=== PATIENT | female | born 1940 | race Caucasian/White ===

== ENCOUNTER → 2017-03-31 | Outpatient (REF) | payer MEDICARE | LOC: M LAB REF 16:28 | PROVIDERS: ATTEND Nurse Practitioner Family | DX: E83.52 Hypercalcemia (principal) ==

== ENCOUNTER → 2017-05-01 | Outpatient (REF) | payer MEDICARE ==
[2017-05-06 13:29] LABS: ALBUMIN 3.99 GM/DL (3.29-5.55)
== END ==
LOC: M LAB REF 16:51
PROVIDERS: ATTEND Nurse Practitioner Family
DX: E83.52 Hypercalcemia (principal)

== ENCOUNTER → 2019-04-05 | Outpatient (REF) | payer MEDICARE | LOC: M LAB REF 12:01 | PROVIDERS: ATTEND Nurse Practitioner Family | DX: E83.52 Hypercalcemia (principal) ==

== ENCOUNTER 2020-08-15 13:34 | Emergency (ER) | payer MEDICARE ==
[~2020-08-15] VITALS: Ht 157.5 cm; Wt 36.5 kg
[2020-08-15 14:58] LABS: BASO % 0.2 % (0.0-1.0); EOS # 0.1 10^3/uL (0.0-0.5); EOS % 0.7 % (0.0-3.0); HEMATOCRIT 39.1 % (36.0-47.0); HEMOGLOBIN 12.3 g/dl (12.0-15.5); LYMPH % 9.9 % (24.0-44.0); MEAN CORPUSCULAR HEMOGLOBIN 29.4 pg (27.0-33.0); MEAN CORPUSCULAR HGB CONC 31.5 g/dl (32.0-36.5); MEAN CORPUSCULAR VOLUME 93.5 fl (80.0-96.0); MONO # 0.5 10^3/uL (0.0-0.8); MONO % 4.7 % (0.0-5.0); NEUTROPHILS # 8.3 10^3/uL (1.5-8.5); NEUTROPHILS % 84.2 % (36.0-66.0); PLATELET COUNT, AUTOMATED 301 10^3/uL (150-450); RED BLOOD COUNT 4.18 10^6/uL (4.00-5.40); WHITE BLOOD COUNT 9.9 10^3/uL (4.0-10.0)
[2020-08-15] MEDS ORDERED: LISI2.5T2 PO (15:33)
[2020-08-15] MEDS ORDERED: IRON27TA2 PO (15:33)
[2020-08-15] MEDS ORDERED: ASPI81TA86 PO (15:33)
[2020-08-15] MEDS ORDERED: FENO1CAP16 PO (15:33)
[2020-08-15] MEDS ORDERED: CENT1TAB PO (15:33)
[2020-08-15] MEDS ORDERED: VITAD400CA FT (15:33)
[2020-08-15] MEDS ORDERED: TRAM50TA2 PO (15:33)
[2020-08-15] MEDS ORDERED: TOLT60TA PO (15:33)
--- NOTE | 2020-08-15 16:21 | REPVR ---
PROCEDURE INFORMATION: Exam: CT Abdomen And Pelvis Without Contrast Exam date and time: 08/15/2020 3:17 PM Age: 79 years old Clinical indication: Abdominal pain; Generalized; Additional info: Acute urinary retention TECHNIQUE: Imaging protocol: Computed tomography of the abdomen and pelvis without contrast. Radiation optimization: All CT scans at this facility use at least one of these dose optimization techniques: automated exposure control; mA and/or kV adjustment per patient size (includes targeted exams where dose is matched to clinical indication); or iterative reconstruction. COMPARISON: No relevant prior studies available. FINDINGS: Lungs: There are severe emphysematous changes at the lung apices. Linear atelectasis or parenchymal scarring is seen at the lung bases. Liver: There are no focal liver lesions present. Gallbladder and bile ducts: Cholelithiasis is noted. Pancreas: The pancreas is normal. Spleen: The spleen is normal. Adrenals: The adrenal glands are normal. Kidneys and ureters: There is no evidence of hydronephrosis. Likely 7 mm partially exophytic hemorrhagic cyst at the right superior renal pole. Stomach and bowel: The stomach is normal. Retained fecal material is noted in the colon. There is no evidence of intestinal perforation or obstruction. Appendix: No evidence of appendicitis. Intraperitoneal space: There is no free intraperitoneal air visualized. Vasculature: Atherosclerotic vascular disease is noted. There is no evidence of an abdominal aortic aneurysm. Lymph nodes: Unremarkable. No enlarged lymph nodes. Bladder: A Antony catheter is in the bladder. Bladder air likely iatrogenic. Bladder calculi layer in the dependent portion the bladder. No bladder wall thickening is seen. Reproductive: Unremarkable as visualized. Bones/joints: The bones are osteopenic. There are compression deformities at T12 through L5, which is age indeterminate. Spinal degenerative changes are noted. IMPRESSION: 1. Bladder calculi noted. No bladder wall thickening. 2. No renal calculi or obstruction. 3. Cholelithiasis. 4. Compression deformities at T12 through L5, age indeterminate. COMMENTS: Consistent with the [place] [employer]'s Incidental Findings Committee white paper (J Am Dwight Radiol 2018): Any incidental renal lesion less than 1.0 cm or classified as too small to characterize, or any incidental cystic renal lesion characterized as simple-appearing, is likely benign. No follow-up imaging is recommended for these lesions per consensus recommendations based on imaging criteria. Electronically signed by: Alethea Jon On 08/15/2020 16:20:55 PM
[2020-08-15 17:19] VITALS: BP 128/71
== END 2020-08-15 17:38 | disposition home or self-care (01) ==
LOC: M ED 13:34
DX: R33.9 Retention of urine, unspecified (principal); T44 Poisoning by, adverse effect of and underdosing of drugs primarily affecting the autonomic nervous system; Y92.9 Unspecified place or not applicable; Y93.9 Activity, unspecified; K80.20 Calculus of gallbladder without cholecystitis without obstruction; N21.0 Calculus in bladder; M51.35 Other intervertebral disc degeneration, thoracolumbar region; M51.36 Other intervertebral disc degeneration, lumbar region; J44.9 Chronic obstructive pulmonary disease, unspecified; Z79.82 Long term (current) use of aspirin; Z79.899 Other long term (current) drug therapy

== ENCOUNTER 2020-10-29 13:15 | Emergency (ER) | payer MEDICARE ==
[~2020-10-29] VITALS: Ht 152.4 cm; Wt 35.5 kg
[~2020-10-29 13:15] MED LIST: ASPI81TA86 PO; CENT1TAB PO; FENO1CAP16 PO; IRON27TA2 PO; LISI2.5T2 PO; TOLT60TA PO; TRAM50TA2 PO; VITAD400CA FT
[2020-10-29] MEDS ORDERED: ADV500INH INH (13:54)
[2020-10-29] MEDS ORDERED: TAMS1CAP17 (13:54)
[2020-10-29] MEDS ORDERED: SPIR1CAP (13:54)
[2020-10-29] MEDS ORDERED: LISI-542 (13:54)
[2020-10-29] MEDS ORDERED: COMBAER6 (13:54)
[2020-10-29] MEDS ORDERED: OXYB5TAB10 (13:54)
[2020-10-29] MEDS ORDERED: ALEN70TA74 (13:54)
[2020-10-29] MEDS ORDERED: CALC500C16 PO (13:54)
[2020-10-29 15:18] LABS: BASO % 0.6 % (0.0-1.0); EOS # 0.2 10^3/uL (0.0-0.5); EOS % 3.6 % (0.0-3.0); HEMOGLOBIN 11.2 g/dl (12.0-15.5); LYMPH # 1.2 10^3/uL (1.5-5.0); LYMPH % 18.3 % (24.0-44.0); MEAN CORPUSCULAR HEMOGLOBIN 29.1 pg (27.0-33.0); MEAN CORPUSCULAR HGB CONC 31.1 g/dl (32.0-36.5); MEAN CORPUSCULAR VOLUME 93.5 fl (80.0-96.0); MONO # 0.4 10^3/uL (0.0-0.8); MONO % 5.9 % (0.0-5.0); NEUTROPHILS # 4.7 10^3/uL (1.5-8.5); NEUTROPHILS % 71.3 % (36.0-66.0); PLATELET COUNT, AUTOMATED 278 10^3/uL (150-450); RED BLOOD COUNT 3.85 10^6/uL (4.00-5.40); WHITE BLOOD COUNT 6.6 10^3/uL (4.0-10.0)
[2020-10-29 15:47] LABS: BLOOD UREA NITROGEN 17 MG/DL (7-18); CALCIUM LEVEL 9.1 MG/DL (8.8-10.2); CARBON DIOXIDE LEVEL 32 MEQ/L (21-32); CHLORIDE LEVEL 99 MEQ/L (98-107); CREATININE FOR GFR 0.52 MG/DL (0.55-1.30); GLOMERULAR FILTRATION RATE > 60.0 (>39); GLUCOSE, FASTING 96 MG/DL (70-100); POTASSIUM SERUM 4.3 MEQ/L (3.5-5.1); SODIUM LEVEL 136 MEQ/L (136-145)
[2020-10-29] MEDS ORDERED: KEFL500C17 PO (16:25)
[2020-10-29 16:43] VITALS: BP 121/53
== END 2020-10-29 17:07 | disposition home or self-care (01) ==
LOC: M ED 13:15
DX: T83.091A Other mechanical complication of indwelling urethral catheter, initial encounter (principal); N39.0 Urinary tract infection, site not specified; R31.29 Other microscopic hematuria; Z79.899 Other long term (current) drug therapy

== ENCOUNTER → 2020-11-14 | Outpatient (REF) | payer MEDICARE ==
[~2020-11-14] MED LIST changes: +ADV500INH INH; +ALEN70TA74; +CALC500C16 PO; +COMBAER6; +KEFL500C17 PO; +LISI-542; +OXYB5TAB10; +SPIR1CAP; +TAMS1CAP17
== END ==
LOC: M LAB REF 17:15
PROVIDERS: ATTEND Dermatology
DX: L57.0 Actinic keratosis (principal); L57.8 Other skin changes due to chronic exposure to nonionizing radiation

== ENCOUNTER → 2021-01-15 | Outpatient (REF) | payer MEDICARE ==
[~2021-01-15] MED LIST changes: -ALEN70TA74; +ALEN70TA82; -LISI-542; +LISI-898
[2021-01-20 15:08] LABS: CA Oxalate Dihy 40 % (.); Ca Ox Monohydrate 40 % (.)
== END ==
LOC: M SMT 17:25
PROVIDERS: ATTEND Urology
DX: N21.0 Calculus in bladder (principal)

== ENCOUNTER 2021-01-21 11:23 | Emergency (ER) | payer MEDICARE ==
[~2021-01-21] VITALS: Ht 152.4 cm; Wt 34.1 kg
[2021-01-21 11:29] VITALS: BP 133/71
--- OUTSIDE RECORDS SUMMARY | 2021-01-21 11:29 | CCD ---
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 892899163 Problem Urinary retention R33.9 Active confirmed 13 4021012 Problem Bladder spasm N32.89 Active confirmed 541068 006 ALLERGIES No Known Allergies ENCOUNTERS from 1940 to 2021-01-05 Encounter Location Date Provider Diagnosis [facility] [address] [place] [address] Jan Romina Shah Urinary retention R33.9 IMMUNIZATIONS Vaccine Route Administration Date Status Influenza (18 yrs & older) Flublok Unknown Oct 02, 2020 Administered SOCIAL HISTORY Tobacco Use: Social History Observation Description Date Details (start date - stop date) Former Smoker Sex Assigned At : Social History Observation Description Sex Assigned At Unknown Language: Question Answer Notes Languages spoken: Azeri Orthodox: Question Answer Notes Orthodox No pentecostalism beliefs that would impact health care., Tobacco Use: Question Answer Notes Are you a: former smoker REASON FOR REFERRAL No Information VITAL SIGNS Weight 77 lbs Jan, Height 61 in Jan, BMI 14.55 kg/m2 Jan, Heart Rate 110 /min Jan, Respiratory Rate 24 /min Jan, Temperature 98 degrees Fahrenheit Jan, Oximetry 88% on o2 2lpm Jan, Blood pressure systolic 148 mm Hg Jan, Blood pressure diastolic 55 mm Hg Jan, MEDICATIONS Medication SIG (Take, Route, Frequency, Duration) Notes Start Da te End Date Status Fenofibrate 48 MG as directed Orally Once a day for 30 day(s) Active Ciprofloxacin HCl 500 MG 1 tablet Orally every 12 hrs for 10 day (s) Oct, Active Oxybutynin Chloride 5 MG 1 tablet Orally Twice a day for 90 day(s) Active Calcium + D 600-200 MG-UNIT 1 tablet with food Orally Once a day for 30 day(s) Active Combivent Respimat 20-100 mcg/act 1 puff Inhalation Four times daily Active Ciprofloxacin HCl 500 MG 1 tablet Orally every 12 hrs for 21 day (s) Dec, Active Tamsulosin HCl 0.4 MG TAKE 1 CAPSULE BY MOUTH EVER Y DAY 30 MINUTES AFTER DINNER for 90 Active Solifenacin Succinate 5 MG 1 tablet Orally Once a day for 90 Active Spiriva HandiHaler 18 MCG 1 capsule Inhalation Once a day Active Vitamin D 1000 UNIT 1 capsule Orally Once a day for 30 day(s) Active PROCEDURES from 1942 to 2021-01-05 Procedure Date Ordered Result Body Site Medication: Lidocaine HCl 2% Jelly 5mL Intravesically 2021-01-04 N/A Shabazz Catheter Insertion 16F 2021-01-04 N/A RESULTS No Results REASON FOR VISIT cath fell out MEDICAL (GENERAL) HISTORY Type Description Date Medical History HYPERTENSION Medical History COPD Medical History HIGH TRIGLYCERIDES Surgical History SURGERY TO REMOVE CYST, OVARY AND APPEND IX AT AGE 5YRS Surgical History surgery to remove cancer from left leg 1 01/2020 Hospitalization History surgery left leg for cancer removal 10/2020 Goals Section No Information Health Concerns No Information MEDICAL EQUIPMENT No Information MENTAL STATUS No Information FUNCTIONAL STATUS No Information ASSESSMENTS Encounter Date Diagnosis Assessment Notes Treatment Notes Treatm ent Clinical Notes Jan, Urinary retention (ICD-10 - R33.9) Jan, Other Care for your shabazz catheter : female material was printed PLAN OF TREATMENT Next Appt Details 4 Weeks Reason:cath chg Provider Name:Luis Manuel Morales, 2021-02-08 01:30:00 PM, [address], [place], [address], [facility] Insurance Providers Payer Name Payer Address Payer Phone Insured Name Patient Relati onship to Insured Coverage Start Date Coverage End Date [employer] OPTIONS [facility] [address] [facility] [address] SHAHZAD GEE MEDICARE Part A and B [address] [facility] [address] [phone] SHAHZAD GEE self
--- OUTSIDE RECORDS SUMMARY | 2021-01-21 11:29 | CCD ---
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 601172753 Problem Urinary retention R33.9 Active confirmed 13 0800427 Problem Bladder spasm N32.89 Active confirmed 322448 006 ALLERGIES No Known Allergies ENCOUNTERS from 1940 to 2021-01-10 Encounter Location Date Provider Diagnosis [facility] Urology [address] [place] [address] Jan Toni Nuñez Urinary retention R33.9 IMMUNIZATIONS Vaccine Route Administration Date Status Influenza (18 yrs & older) Flublok Unknown Oct 02, 2020 Administered SOCIAL HISTORY Tobacco Use: Social History Observation Description Date Details (start date - stop date) Former Smoker Sex Assigned At : Social History Observation Description Sex Assigned At Unknown Language: Question Answer Notes Languages spoken: Swedish Yazdanism: Question Answer Notes Yazdanism No mandaeism beliefs that would impact health care., Tobacco Use: Question Answer Notes Are you a: former smoker REASON FOR REFERRAL No Information VITAL SIGNS Weight 77 lbs Jan, Height 61 in Jan, BMI 14.55 kg/m2 Jan, Heart Rate 105 /min Jan, Respiratory Rate 22 /min Jan, Temperature 97.8 degrees Fahrenheit Jan, Oximetry 92% on 2L Jan, Blood pressure systolic 132 mm Hg Jan, Blood pressure diastolic 78 mm Hg Jan, MEDICATIONS Medication SIG (Take, Route, Frequency, Duration) Notes Start Da te End Date Status Fenofibrate 48 MG as directed Orally Once a day for 30 day(s) Active Calcium + D 600-200 MG-UNIT 1 tablet with food Orally Once a day for 30 day(s) Active Spiriva HandiHaler 18 MCG 1 capsule Inhalation Once a day Active Vitamin D 1000 UNIT 1 capsule Orally Once a day for 30 day(s) Active Oxybutynin Chloride 5 MG 1 tablet Orally Twice a day for 90 day(s) Active Ciprofloxacin HCl 500 MG 1 tablet Orally every 12 hrs for 10 day (s) Oct, Active Cephalexin 500 MG 1 capsule 1 hour prior to yo ur cystoscopy Orally Once for 1 days Jan, Active Tamsulosin HCl 0.4 MG TAKE 1 CAPSULE BY MOUTH EVER Y DAY 30 MINUTES AFTER DINNER for 90 Active Combivent Respimat 20-100 mcg/act 1 puff Inhalation Four times daily Active Solifenacin Succinate 5 MG 1 tablet Orally Once a day for 90 Active Ciprofloxacin HCl 500 MG 1 tablet Orally every 12 hrs for 21 day (s) Dec, Active PROCEDURES from 1942 to 2021-01-10 Procedure Date Ordered Result Body Site Medication: Lidocaine HCl 2% Jelly 5mL Intravesically 2021-01-09 N/A Antony Catheter Insertion 16F 2021-01-09 N/A RESULTS No Results REASON FOR VISIT CATH CHANGE MEDICAL (GENERAL) HISTORY Type Description Date Medical [...] Notes Jan, Urinary retention (ICD-10 - R33.9) Catheter replaced. This is multiple catheters that have punctured, previous cystoscopy did not show any bladder stones, but I recommended doing another cystoscopy to see if there want anything inside the bladder causing the balloon to leak repeatedly. Pt is agreeable, procedure and consent reviewed and signed, abx sent to psychiatric. PLAN OF TREATMENT Medication Medication Name Sig Start Date Stop Date Cephalexin 500 MG 1 capsule 1 hour prior to yo ur cystoscopy Orally Once for 1 days Jan, Treatment Notes Assessment Notes Clinical Notes Urinary retention Catheter replaced.Th is is multiple catheters that have punctured, previous cystoscopy did not show any bladder stones, but I recommended doing another cystoscopy to see if there want anything inside the bladder causing the balloon to leak repeatedly.Pt is agreeable, procedure and consent reviewed and signed, abx sent to psychiatric. Next Appt Details Provider Name:Toni Nuñez, 10:30:00 AM, [address], [place], [address], Provider Name:Luis Manuel Morales, 2021-02-08 02:00:00 PM, [address], [place], [address], Insurance Providers Payer Name Payer Address Payer Phone Insured Name Patient Relati onship to Insured Coverage Start Date Coverage End Date [employer] OPTIONS [facility] CLAIM DIV [address] [facility] [address] SHAHZAD GEE MEDICARE Part A and B [address] [facility] [address] [phone] SHAHZAD GEE
--- OUTSIDE RECORDS SUMMARY | 2021-01-21 11:29 | CCD ---
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 903950662 Problem Urinary retention R33.9 Active confirmed 13 0282789 Problem Bladder spasm N32.89 Active confirmed 585129 006 ALLERGIES No Known Allergies ENCOUNTERS from 1940 to 2021-01-05 Encounter Location Date Provider Diagnosis [facility] Urology [address] [place] [address] Jan Luis Manuel Morales Urinary retention R33.9 IMMUNIZATIONS Vaccine Route Administration Date Status Influenza (18 yrs & older) Flublok Unknown Oct 02, 2020 Administered SOCIAL HISTORY Tobacco Use: Social History Observation Description Date Details (start date - stop date) Former Smoker Sex Assigned At : Social History Observation Description Sex Assigned At Unknown Language: Question Answer Notes Languages spoken: Malay Anabaptist: Question Answer Notes Anabaptist No jew beliefs that would impact health care., Tobacco Use: Question Answer Notes Are you a: former smoker REASON FOR REFERRAL No Information VITAL SIGNS Weight 79 lbs Jan, Height 61 in Jan, BMI 14.93 kg/m2 Jan, Heart Rate 116 /min Jan, Respiratory Rate 22 /min Jan, Oximetry 92% on 2L Jan, Blood pressure systolic 128 mm Hg Jan, Blood pressure diastolic 79 mm Hg Jan, MEDICATIONS Medication SIG (Take, [...] 2021-01-05 Procedure Date Ordered Result Body Site Antony Catheter Insertion 16F 2021-01-03 N/A Medication: Lidocaine HCl 2% Jelly 5mL Intravesically 2021-01-03 N/A RESULTS No Results REASON FOR VISIT catheter placement MEDICAL (GENERAL) HISTORY Type Description Date Medical [...] Notes Jan, Urinary retention (ICD-10 - R33.9) PLAN OF TREATMENT Next Appt Details Provider Name:Luis Manuel Morales, 2021-02-08 01:30:00 PM, [address], [place], [address], Insurance Providers Payer Name Payer Address Payer Phone Insured Name Patient Relati onship to Insured Coverage Start Date Coverage End Date [facility] CLAIM DIV [address] [facility] [phone] PECORI,SHAHZAD L self MEDICARE Part A and B [address] [facility] [address] [phone] SHAHZAD GEE
--- OUTSIDE RECORDS SUMMARY | 2021-01-21 11:29 | CCD ---
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 Active 595353691 ALLERGIES No Known Allergies ENCOUNTERS from 1942 to 2020-12-20 Encounter Location Date Provider Diagnosis [facility] Urology [address] [place] [address] Dec Luis Manuel Morales Urinary retention R33.9 and Immunization not carried out because of patient refusal Z28.21 IMMUNIZATIONS Vaccine Route Administration Date Status Influenza (18 yrs & older) Flublok Unknown Oct 02, 2020 Administered SOCIAL HISTORY Tobacco Use: Social History Observation Description Date Details (start date - stop date) Former Smoker Sex Assigned At : Social History Observation Description Sex Assigned At Unknown Islam: Question Answer Notes Islam No denominational beliefs that would impact health care., Tobacco Use: Question Answer Notes Are you a: former smoker REASON FOR REFERRAL No Information VITAL SIGNS Weight 79 lbs Dec, Height 61 in Dec, BMI 14.93 kg/m2 Dec, Heart Rate 69 /min Dec, Respiratory Rate 24 /min Dec, Temperature 98.7 degrees Fahrenheit Dec, Oximetry 94% on 2 lpm Dec, Blood pressure systolic 117 mm Hg Dec, Blood pressure diastolic 70 mm Hg Dec, MEDICATIONS Medication SIG (Take, Route, Frequency, Duration) Notes Start Da te End Date Status Spiriva HandiHaler 18 MCG 1 capsule Inhalation Once a day Active Solifenacin Succinate 5 MG 1 tablet Orally Once a day for 90 Active Ciprofloxacin HCl 500 MG 1 tablet Orally every 12 hrs for 10 day (s) Oct, Active Calcium + D 600-200 MG-UNIT 1 [...] 1 puff Inhalation Four times daily Active Vitamin D 1000 UNIT 1 capsule Orally Once a day for 30 day(s) Active Oxybutynin Chloride 5 MG 1 tablet Orally Twice a day for 90 day(s) Active Fenofibrate 48 MG as directed Orally Once a day for 30 day(s) Active PROCEDURES from 1942 to 2020-12-20 Procedure Date Ordered Result Body Site Shabazz Catheter Insertion 16F 2020-12-19 N/A RESULTS No Results REASON FOR VISIT cath change- last ov 08/22/20 MEDICAL (GENERAL) HISTORY Type Description Date Medical [...] Notes Treatment Notes Treatm ent Clinical Notes Dec, Urinary retention (ICD-10 - R33.9) How to care for your shabazz catheter information given to pt. Rowe not working. Dec, Immunization not carried out because of patient refusal (ICD-10 - Z28.21) PLAN OF TREATMENT Treatment Notes Assessment Notes Clinical Notes Urinary retention How to care for your shabazz c atheter information given to pt. Rowe not working. Treatment Notes Test Name Order Date Medication: Lidocaine HCl 2% Jelly 5mL Intravesically 2020-12-20 Next Appt Details 4 Weeks Reason:cath chg Provider Name:Luis Manuel Morales, 2021-01-19 01:00:00 PM, [address] [place], [address], Follow [facility] Insurance Providers Payer Name Payer Address Payer Phone Insured Name Patient Relati onship to Insured Coverage Start Date Coverage End Date [employer] HE[employer] CARE OPTIONS [facility] CLAIM DIV [address] [facility] [phone] SHAHZAD GEE MEDICARE Part A and B [address] [facility] [address] [phone] SHAHZAD GEE self
--- OUTSIDE RECORDS SUMMARY | 2021-01-21 11:29 | CCD ---
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 576537228 ALLERGIES No Known Allergies ENCOUNTERS from 1942 to 2021-01-18 Encounter Location Date Provider Diagnosis [facility] Urology [address] [place] [address] [facility] [address] Jan Toni Nuñez Urinary retention R33.9 and Bladder ston e N21.0 IMMUNIZATIONS Vaccine Route Administration Date Status Imm: Influenza 18 yrs & older Flublok Unknown Oct 02 Administered SOCIAL HISTORY Tobacco Use: Social History Observation Description Date Details (start date - stop date) Former Smoker Sex Assigned At : Social History Observation Description Sex Assigned At Unknown Language: Question Answer Notes Languages spoken: Wallisian Congregation: Question Answer Notes Congregation No mosque beliefs that would impact health care., Tobacco Use: Question Answer Notes Are you a: former smoker REASON FOR REFERRAL No Information VITAL SIGNS Weight 80 lbs Jan, Height 61 in Jan, BMI 15.11 kg/m2 Jan, Heart Rate 100 /min Jan, Respiratory Rate 18 /min Jan, Oximetry 88 Jan, Blood pressure systolic 160 mm Hg Jan, Blood pressure diastolic 82 mm Hg Jan, MEDICATIONS Medication SIG (Take, Route, Frequency, Duration) Notes Start Da te End Date Status Cephalexin 500 MG 1 capsule 1 hour prior to yo ur cystoscopy Orally Once for 1 days Jan, Active Solifenacin Succinate 5 MG 1 tablet Orally Once a day for 30 day(s) Active Combivent Respimat 20-100 mcg/act 1 puff Inhalation Four times daily Active Spiriva HandiHaler 18 MCG 1 capsule Inhalation Once a day Active Fenofibrate 48 MG as directed Orally Once a day for 30 day(s) Active Oxybutynin Chloride 5 MG 1 tablet Orally Twice a day for 90 day(s) Not-Taking Ciprofloxacin HCl 500 MG 1 tablet Orally every 12 hrs for 21 day (s) Dec, Active Vitamin D 1000 UNIT 1 capsule Orally Once a day for 30 day(s) Active Solifenacin Succinate 5 MG 1 tablet Orally Once a day for 90 Active Lisinopril 5 MG 1 tablet Orally Once a day for 30 day(s) Active Ciprofloxacin HCl 500 MG 1 tablet Orally every 12 hrs for 10 day (s) Oct, Active Tamsulosin HCl 0.4 MG TAKE 1 CAPSULE BY MOUTH EVER Y DAY 30 MINUTES AFTER DINNER for 90 Active Calcium + D 600-200 MG-UNIT 1 tablet with food Orally Once a day for 30 day(s) Active PROCEDURES from 1942 to 2021-01-18 Procedure Date Ordered Result Body Site Medication: Lidocaine HCl 2% Jelly 5mL Intravesically 2021-01-15 N/A RESULTS No Results REASON FOR VISIT catheter keeps coming out MEDICAL (GENERAL) HISTORY Type Description Date Medical History HYPERTENSION Medical History COPD Medical History HIGH TRIGLYCERIDES Surgical History SURGERY TO REMOVE CYST, OVARY AND APPEND IX AT AGE 5YRS Surgical History surgery to remove cancer from left leg 1 01/2020 Surgical History cystoscopy 01/2021 Hospitalization History surgery left leg for cancer removal 10/2020 Goals Section No Information Health Concerns No Information MEDICAL EQUIPMENT No Information MENTAL STATUS No Information FUNCTIONAL STATUS No Information ASSESSMENTS Encounter Date Diagnosis Assessment Notes Treatment Notes Treatm ent Clinical Notes Jan, Urinary retention (ICD-10 - R33.9) Jan, Bladder stone (ICD-10 - N21.0) PLAN OF TREATMENT Treatment Notes Test Name Order Date Calculus Analysis, Stone Jelly 2021-01-15 Next Appt Details monthly nv for catheter changes; 1 yr w/ NEWSPAPER MANAGER Reason:urinary retention Provider Name:Romina Herron Alyssa, 2021-01-29 9 01:00:00 PM, [address], [place], [address], Follow Up:monthly nv for catheter changes; 1 yr w/ NPurinary retention Insurance Providers Payer Name Payer Address Payer Phone Insured Name Patient Relati onship to Insured Coverage Start Date Coverage End Date MEDICARE Part A and B [address] [facility] [address] [phone] SHAHZAD GEE [facility] DIV [address] [facility] [address] SHAHZAD GEE
--- OUTSIDE RECORDS SUMMARY | 2021-01-21 11:29 | CCD ---
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 [id number] ALLERGIES No Known Allergies ENCOUNTERS from 1940 to 2020-12-12 Encounter Location Date Provider Diagnosis [facility] Dermatology [address] [place] [address] Dec, Marc Bal Healing wound T14.90XD IMMUNIZATIONS No Information SOCIAL HISTORY Tobacco Use: Social History Observation Description Date Details (start date - stop date) Former Smoker Sex Assigned At : Social History Observation Description Sex Assigned At Unknown Druze: Question Answer Notes Druze No latter day beliefs that would impact health care., Tobacco Use: Question Answer Notes Are you a: former smoker REASON FOR REFERRAL No Information VITAL SIGNS Weight 110 lbs Dec, Height 61 in Dec, BMI 20.78 kg/m2 Dec, Blood pressure systolic 110 mm Hg Dec, Blood pressure diastolic 68 mm Hg Dec, MEDICATIONS Medication SIG (Take, Route, Frequency, Duration) Notes Start Da te End Date Status Vitamin D 1000 UNIT 1 capsule Orally Once a day for 30 day(s) Active Oxybutynin Chloride 5 MG 1 tablet Orally Twice a day for 90 day(s) Active Ciprofloxacin HCl 500 MG 1 tablet Orally every 12 hrs for 10 day (s) Oct, Active Ciprofloxacin HCl 500 MG 1 tablet Orally every 12 hrs for 21 day (s) Dec, Active Calcium + D 600-200 MG-UNIT 1 tablet with food Orally Once a day for 30 day(s) Active Tamsulosin HCl 0.4 MG TAKE 1 CAPSULE BY MOUTH EVER Y DAY 30 MINUTES AFTER DINNER for 90 Active Fenofibrate 48 MG as directed Orally Once a day for 30 day(s) Active Spiriva HandiHaler 18 MCG 1 capsule Inhalation Once a day Active Combivent Respimat 20-100 mcg/act 1 puff Inhalation Four times daily Active Solifenacin Succinate 5 MG 1 tablet Orally Once a day for 90 Active PROCEDURES No Information RESULTS No Results REASON FOR VISIT wound check MEDICAL (GENERAL) HISTORY Type Description Date Medical History HYPERTENSION Medical History COPD Medical History HIGH TRIGLYCERIDES Surgical History SURGERY TO REMOVE CYST, OVARY AND APPEND IX AT AGE 5YRS Goals Section No Information Health Concerns No Information MEDICAL EQUIPMENT No Information MENTAL STATUS No Information FUNCTIONAL STATUS No Information ASSESSMENTS Encounter Date Diagnosis Assessment Notes Treatment Notes Treatm ent Clinical Notes Dec, Healing wound (ICD-10 - T14.90XD) Healing well without complication. Oral abx coverage to prevent infection ordered. PLAN OF TREATMENT Medication Medication Name Sig Start Date Stop Date Ciprofloxacin HCl 500 MG 1 tablet Orally every 12 hrs for 21 day(s) Dec, Treatment Notes Assessment Notes Clinical Notes Healing wound Healing well without complication. Oral abx coverage to prevent infection ordered. Next Appt Details Provider Name:Luis Manuel Morales, 2020-12-19 01:00:00 PM, [address], [place], [address], Insurance Providers Payer Name Payer Address Payer Phone Insured Name Patient Relati onship to Insured Coverage Start Date Coverage End Date [employer] HE[employer] CARE OPTIONS [facility] CLAIM DIV [address] [facility] [address] SHAHZAD GEE MEDICARE Part A and B [address] [facility] [address] [phone] SHAHZAD GEE
--- OUTSIDE RECORDS SUMMARY | 2021-01-21 11:29 | CCD ---
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 584067977 ALLERGIES No Known Allergies ENCOUNTERS from 1940 to 2020-11-28 Encounter Location Date Provider Diagnosis [facility] Urology [address] [place] [address] Oct Luis Manuel Andrew IMMUNIZATIONS No Information SOCIAL HISTORY Tobacco Use: Social History Observation Description Date Details (start date - stop date) Former Smoker Sex Assigned At : Social History Observation Description Sex Assigned At Unknown Jainism: Question Answer Notes Jainism No episcopal beliefs that would impact health care., Tobacco Use: Question Answer Notes Are you a: former smoker REASON FOR REFERRAL No Information VITAL SIGNS No information MEDICATIONS Medication SIG (Take, Route, Frequency, Duration) Notes Start Da te End Date Status Ciprofloxacin HCl 500 MG 1 tablet Orally every 12 hrs for 10 day (s) Oct, Active Vitamin D 1000 UNIT 1 capsule Orally Once a day for 30 day(s) Active Oxybutynin Chloride 5 MG 1 tablet Orally Twice a day for 90 day(s) Active Tamsulosin HCl 0.4 MG TAKE 1 CAPSULE BY MOUTH EVER Y DAY 30 MINUTES AFTER DINNER for 90 Active Combivent Respimat 20-100 mcg/act 1 puff Inhalation Four times daily Active Solifenacin Succinate 5 MG 1 tablet Orally Once a day for 90 Active Calcium + D 600-200 MG-UNIT 1 tablet with food Orally Once a day for 30 day(s) Active Fenofibrate 48 MG as directed Orally Once a day for 30 day(s) Active Spiriva HandiHaler 18 MCG 1 capsule Inhalation Once a day Active PROCEDURES No Information RESULTS No Results REASON FOR VISIT D/C oxybuytin MEDICAL (GENERAL) HISTORY Type Description Date Medical History HYPERTENSION Medical History COPD Medical History HIGH TRIGLYCERIDES Surgical History SURGERY TO REMOVE CYST, OVARY AND APPEND IX AT AGE 5YRS Goals Section No Information Health Concerns No Information MEDICAL EQUIPMENT No Information MENTAL STATUS No Information FUNCTIONAL STATUS No Information ASSESSMENTS No Information PLAN OF TREATMENT Medication Medication Name Sig Start Date Stop Date Oxybutynin Chloride 5 MG 1 tablet Orally Twice a day for 90 day( s) Next Appt Details Provider Name:Luis Manuel Morales, 2020-12-19 01:00:00 PM, [address], [place], [address], Insurance Providers Payer Name Payer Address Payer Phone Insured Name Patient Relati onship to Insured Coverage Start Date Coverage End Date A[employer] HE[employer] CARE OPTIONS [facility] CLAIM DIV [address] [facility] [address] SHAHZAD HEADLEY MEDICARE Part A and B [address] [facility] [address] SHAHZAD HEADLEY
--- OUTSIDE RECORDS SUMMARY | 2021-01-21 11:29 | CCD ---
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 929452791 ALLERGIES No Known Allergies ENCOUNTERS from 1940 to 2020-11-29 Encounter Location Date Provider Diagnosis [facility] Dermatology [address] [place] [address] Oct, Katalex Barber IMMUNIZATIONS No Information SOCIAL HISTORY Tobacco Use: Social History Observation Description Date Details (start date - stop date) Former Smoker Sex Assigned At : Social History Observation Description Sex Assigned At Unknown Temple: Question Answer Notes Temple No moravian beliefs that would impact health care., Tobacco [...] Information RESULTS No Results REASON FOR VISIT Waiting for call back MEDICAL (GENERAL) HISTORY Type Description Date Medical [...] 90 day( s) Next Appt Details Provider Name:Marc Bal, 12-06 11:00:00 AM, [address] [facility], 1st Floor, [place], [address], Provider Name:Luis Manuel Morales, 2020-12-19 01:00:00 PM, [address], [place], [address], Insurance Providers Payer Name Payer Address Payer Phone Insured Name Patient Relati onship to Insured Coverage Start Date Coverage End Date [employer] HE[employer] CARE OPTIONS [facility] CLAIM DIV [address] [facility] [id number] SHAHZAD GEE MEDICARE Part A and B [address] [facility] [phone] SHAHZAD GEE
--- OUTSIDE RECORDS SUMMARY | 2021-01-21 11:29 | CCD ---
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 [address] [place] [address] Dec Luis Manuel Andrew IMMUNIZATIONS Vaccine Route Administration Date Status Influenza (18 yrs & older) Flublok Unknown Oct 02, 2020 Administered SOCIAL HISTORY Tobacco Use: Social History Observation Description Date Details (start date - stop date) Former Smoker Sex Assigned At : Social History Observation Description Sex Assigned At Unknown Spiritism: Question Answer Notes Spiritism No episcopalian beliefs that would impact health care., Tobacco [...] a day for 30 day(s) Active PROCEDURES No Information RESULTS No Results REASON FOR VISIT 12/19 APPT MEDICAL (GENERAL) HISTORY Type Description Date Medical [...] Information ASSESSMENTS No Information PLAN OF TREATMENT Next Appt Details Provider Name:Luis Manuel Morales, 2021-01-19 01:00:00 PM, [address], [place], [address], Insurance Providers Payer Name Payer Address Payer Phone Insured Name Patient Relati onship to Insured Coverage Start Date Coverage End Date MEDICARE Part A and B [address] [facility] [phone] SHAHZAD HEADLEY [facility] HEALTH CARE [facility] CLAIM DIV [address] [facility] [address] SHAHZAD HEADLEY
--- OUTSIDE RECORDS SUMMARY | 2021-01-21 11:29 | CCD ---
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 590108266 Problem Urinary retention R33.9 Active 479936283 Problem Bladder spasm N32.89 Active 556610422 ALLERGIES No Known Allergies ENCOUNTERS from 1940 to 2020-12-28 Encounter Location Date Provider Diagnosis [facility] U[facility] [address] [place] [address] Dec Luis Manuel Morales Urinary retention R33.9 IMMUNIZATIONS Vaccine Route Administration Date Status Influenza (18 yrs & older) Flublok Unknown Oct 02, 2020 Administered SOCIAL HISTORY Tobacco Use: Social History Observation Description Date Details (start date - stop date) Former Smoker Sex Assigned At : Social History Observation Description Sex Assigned At Unknown Evangelical: Question Answer Notes Evangelical No caodaism beliefs that would impact health care., Tobacco Use: Question Answer Notes Are you a: former smoker REASON FOR REFERRAL No Information VITAL SIGNS Weight 79 lbs Dec, Height 61 in Dec, BMI 14.93 kg/m2 Dec, Heart Rate 120 /min Dec, Respiratory Rate 24 /min Dec, Temperature 97.8 degrees Fahrenheit Dec, Oximetry 92% on 2 lpm o2 Dec, Blood pressure systolic 131 mm Hg Dec, Blood pressure diastolic 81 mm Hg Dec, MEDICATIONS Medication SIG (Take, Route, Frequency, Duration) Notes Start Da te End Date Status Oxybutynin Chloride 5 MG 1 tablet Orally Twice a day for 90 day(s) Active Ciprofloxacin HCl 500 MG 1 tablet Orally every 12 hrs for 10 day (s) Oct, Active Solifenacin Succinate 5 MG 1 tablet Orally Once a day for 90 Active Combivent Respimat 20-100 mcg/act [...] hrs for 21 day (s) Dec, Active Spiriva HandiHaler 18 MCG 1 capsule Inhalation Once a day Active Tamsulosin HCl 0.4 MG TAKE 1 CAPSULE BY MOUTH EVER Y DAY 30 MINUTES AFTER DINNER for 90 Active PROCEDURES from 1942 to 2020-12-28 Procedure Date Ordered Result Body Site Medication: Lidocaine HCl 2% Jelly 5mL Intravesically 2020-12-27 N/A Shabazz Catheter Insertion 2020-12-27 N/A RESULTS No Results REASON FOR VISIT cath fell out this AM- needs new cath MEDICAL (GENERAL) HISTORY Type Description Date Medical [...] Notes Dec, Urinary retention (ICD-10 - R33.9) Dec, Other Caring for your shabazz cathet er material was printed PLAN OF TREATMENT Future Test Test Name Order Date Shabazz Catheter Insertion [id number] Medication: Lidocaine HCl 2% Jelly 5mL Intravesically [id number] Medication: Lidocaine HCl 2% Jelly 5mL Intravesically [id number] Shabazz Catheter Insertion [id number] Shabazz Catheter Insertion [id number] Medication: Lidocaine HCl 2% Jelly 5mL Intravesically [id number] Medication: Lidocaine HCl 2% Jelly 5mL Intravesically [id number] Shabazz Catheter Insertion 16F [id number] Shabazz Catheter Insertion 16F [id number] Medication: Lidocaine HCl 2% Jelly 5mL Intravesically [id number] Medication: Lidocaine HCl 2% Jelly 5mL Intravesically [id number] Shabazz Catheter Insertion 16F [id number] Shabazz Catheter Insertion 16F [id number] Medication: Lidocaine HCl 2% Jelly 5mL Intravesically 20210124 Next Appt Details 4 Weeks Reason:cath chg Provider Name:Luis Manuel Morales, 2021-01-25 01:00:00 PM, [address], [place], [address], [facility] Insurance Providers Payer Name Payer Address Payer Phone Insured Name Patient Relati onship to Insured Coverage Start Date Coverage End Date MEDICARE Part A and B [address] [facility] [phone] SHAHZAD GEE [facility] HEALTH CARE [facility] CLAIM [facility] [address] [facility] [phone] SHAHZAD GEE
--- OUTSIDE RECORDS SUMMARY | 2021-01-21 11:30 | CCD ---
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 995767510 ALLERGIES No Known Allergies ENCOUNTERS from 1940 to 2020-11-21 Encounter Location Date Provider Diagnosis [facility] Urology [address] [place] [address] Aug Luis Manuel Morales Urinary retention R33.9 IMMUNIZATIONS No Information SOCIAL HISTORY Tobacco Use: Social History Observation Description Date Details (start date - stop date) Former Smoker Sex Assigned At : Social History Observation Description Sex Assigned At Unknown Roman Catholic: Question Answer Notes Roman Catholic No cheondoism beliefs that would impact health care., Tobacco Use: Question Answer Notes Are you a: former smoker REASON FOR REFERRAL No Information VITAL SIGNS Weight 78 lbs Aug, Height 61 in Aug, BMI 14.74 kg/m2 Aug, Heart Rate 114 /min Aug, Respiratory Rate 24 /min Aug, Temperature 97.2 degrees Fahrenheit Aug, Oximetry 94 on 2lpm Aug, Blood pressure systolic 125 mm Hg Aug, Blood pressure diastolic 82 mm Hg Aug, MEDICATIONS Medication SIG (Take, Route, Frequency, Duration) [...] 1 tablet Orally Twice a day for 30 Active Spiriva HandiHaler 18 MCG 1 capsule Inhalation Once a day Active PROCEDURES from 1942 to 2020-11-21 Procedure Date Ordered Result Body Site Shabazz Catheter Insertion 16F 2020-09-06 N/A Medication: Lidocaine HCl 2% Jelly 5mL Intravesically 2020-09-06 N/A RESULTS No Results REASON FOR VISIT cath not draining MEDICAL (GENERAL) HISTORY Type Description Date Medical History HYPERTENSION Medical History COPD Medical History HIGH TRIGLYCERIDES Surgical History SURGERY TO REMOVE CYST, OVARY AND APPEND IX AT AGE 5YRS Goals Section No Information Health Concerns No Information MEDICAL EQUIPMENT No Information MENTAL STATUS No Information FUNCTIONAL STATUS No Information ASSESSMENTS Encounter Date Diagnosis Assessment Notes Treatment Notes Treatm ent Clinical Notes Aug, Urinary retention (ICD-10 - R33.9) Aug, Other Care for your shabazz catheter : female material was printed PLAN OF TREATMENT Next Appt Details 4 Weeks Reason:cath chg Provider Name:Marc Bal, 11-28 02:00:00 PM, [address] [place], [address], Provider Name:Luis Manuel Morales, 2020-12-19 01:00:00 PM, [address] [place], [address], Follow Up:4 Weekscath chg Insurance Providers Payer Name Payer Address Payer Phone Insured Name Patient Relati onship to Insured Coverage Start Date Coverage End Date MEDICARE Part A and B [address] [facility] [phone] SHAHZAD GEE [facility] HEALTH CARE OPTIONS [facility] CLAIM DIV [address] [facility] [phone] SHAHZAD GEE
--- OUTSIDE RECORDS SUMMARY | 2021-01-21 11:30 | CCD ---
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 281775894 ALLERGIES No Known Allergies ENCOUNTERS from 1940 to 2020-11-18 Encounter Location Date Provider Diagnosis [facility] [address] [facility] [facility] [place] [address] Oct Romina Shah IMMUNIZATIONS No Information SOCIAL HISTORY Tobacco Use: Social History Observation Description Date Details (start date - stop date) Former Smoker Sex Assigned At : Social History Observation Description Sex Assigned At Unknown Faith: Question Answer Notes Faith No yazidism beliefs that would impact health care., Tobacco [...] Information RESULTS No Results REASON FOR VISIT cath plugged MEDICAL (GENERAL) HISTORY Type Description Date Medical History HYPERTENSION Medical History COPD Medical History HIGH TRIGLYCERIDES Surgical History SURGERY TO REMOVE CYST, OVARY AND APPEND IX AT AGE 5YRS Goals Section No Information Health Concerns No Information MEDICAL EQUIPMENT No Information MENTAL STATUS No Information FUNCTIONAL STATUS No Information ASSESSMENTS No Information PLAN OF TREATMENT Next Appt Details Provider Name:Marc Bal, 11-21 02:00:00 PM, [address] [facility], 1st Floor, [place], [address], Provider Name:Luis Manuel Morales, 2020-12-19 01:00:00 PM, [address], [place], [address], Insurance Providers Payer Name Payer Address Payer Phone Insured Name Patient Relati onship to Insured Coverage Start Date Coverage End Date A[employer] HEALTH CARE OPTIONS [facility] CLAIM DIV [address] [facility] [phone] SHAHZAD GEE MEDICARE Part A and B [address] [facility] [address] [phone] SHAHZAD GEE
--- OUTSIDE RECORDS SUMMARY | 2021-01-21 11:30 | CCD | Continuity of Care Document ---
Author Author Tari Guillermo M.D. Organization Unknown Address [id number] [address] Phone [phone] Care Team Providers Care Form Setter Supervisor Name Role Phone Ute Guillermo MD [facility] [phone] Problems Active Problems Provider Date Chronic obstructive lung disease Monica Mercer FNP Onset: 02/15/2013 Essential hypertension Monica Mercer FNP Onset: 02/15/2013 Osteoporosis Monica MercerMULTIMEDIA DEVELOPER Onset: 02/15/2013 Vitamin D deficiency Monica MercerMULTIMEDIA DEVELOPER Onset: 02/15/2013 Pure hypercholesterolemia Monica MercerMULTIMEDIA DEVELOPER Onset: 013 Female climacteric state Monica Mercer FNP Onset: 02/16/20 13 Tobacco user Monica Mercer FNP Onset: 02/15/2013 Osteoarthritis Onset: 02/15/2013 Social History Type Date Description Comments Sex Unknown ETOH Use Denies alcohol use Tobacco Use Start: Unknown End: Unknown Patient is a former smoker QUIT 01/2018! Allergies, Adverse Reactions, Alerts Description No Known Drug Allergies Medications Active Medications SIG Qnty Indications Ordering Provide r Date Alendronate Sodium 70mg Tablets 1 weekly 12tabs Ute Guillermo M.D. 10/19/2020 Calcium 600 + D [id number] Tab lets 1 by mouth every day Ute Guillermo M.D. 10/19 Lisinopril 5mg Tablets take 1 tablet by mouth every day 90tabs Ute Guillermo M.D. 03/31/20 17 Fenofibrate 48mg Tablets Take 1 Tablet By Mouth Every Day(Replaces Gemfibrozil Due To Intolerance) 90tabs Monica Mercer FNP 03/31/2017 Advair Diskus 500-50mcg/Dose Aeros ol i inhalation twice a day 60units Ute Guillermo M.D. 0 03/06/2016 Ferrous Sulfate 324(65Fe) mg Table ts DR 1 by mouth every day 90tabs Monica Mercer FNP 5 Combivent Respimat 20-100mcg/Act A erosol inhale 1 puff by mouth four times daily as needed 12units Ute Guillermo M.D. 04/13/2013 Spiriva Handihaler 18mcg Capsules inhale the contents of 1 capsule via inhalation device daily. maximum daily dose is 1 90capzelalem Guillermo M.D. 02/08/2013 One Daily Womens Tablets 1 p o qd Monica Mercer FNP 09/25/2012 Vitamin D 1000Unit Capsules 1 po qd Monica Mercer FNP 09/14/2010 Tramadol HCL 50mg Tablets 1 by mouth every 6 h/prn 30tabs Ute Guillermo M.D. 09/14/20 10 Tamsulosin HCL 0.4mg Capsules 1 daily 1/2 hour after same meal Unknown Oxybutynin Chloride ER 5mg Tablets ER 24HR 1 by mouth every day Unknown 00/00/0 000 Medications Administered in Office Medication SIG Qnty Indications Ordering Provider Date Administration Of Flu Vaccine Inj Monica Camarillo FNP 10/03/2017 Administration Of Flu Vaccine Inj Monica Camarillo FNP 10/13/2014 Administration Of Flu Vaccine Inj Monica Camarillo FNP 08/31/2013 Administration Of Flu Vaccine Inj Monica Camarillo FNP 09/25/2012 Administration Of Flu Vaccine Inj Monica Camarillo FNP 09/23/2011 Immunizations CPT Code Status Date Vaccine Lot # [id number] Given 10/19/2020 Influenza Vaccin e Quadrivalent Preser/Antibiotic Free Im Use [id number] U-Flu Given 09/21/2019 Influenza,Unspecified U-Flu Given 09/28/2018 Influenza,Unspecified 91566 Given 10/03/2017 Influenza Vaccin e Quadrivalent Preser/Antibiotic Free Im Use [id number] 90744 Given 08/19/2017 Zostavax Q2037 Given 10/13/2014 Fluvirin Virus Vaccine [id number] 21 Q2037 Given 08/31/2013 Fluvirin Virus Vaccine Q2037 Given 09/25/2012 Fluvirin Virus Vaccine 95605 01 81814 Given 09/25/2012 Pneumovax 23 Q2037 Given 09/23/2011 Fluvirin Virus Vaccine 51933 Given 09/23/2011 Pneumovax 23 [id number] Refused 10/03/2017 Prevnar 13 Vital Signs Date Vital Result Comment 10/19/2020 9:59am BP Systolic 110 mmHg BP Diastolic 50 mmHg Heart Rate 105 /min Height 60.50 inches 5'0.50" Weight 78.50 lb O2 % BldC Oximetry 94 % With O2 @ 2L BMI (Body Mass Index) 15.1 kg/m2 07/06/2020 10:00am BP Systolic 146 mmHg RT Arm BP Diastolic 86 mmHg RT Arm BP Systolic Recheck 130 mmHg BP Diastolic Recheck 80 mmHg Heart Rate 100 /min Height 60.50 inches 5'0.50" Weight 82.50 lb O2 Saturation Level with Exercise 90 % With 0 2 BMI (Body Mass Index) 15.8 kg/m2 Results Test Acquired Date Facility Test Result H/L Range Note CBC With Differential 10/29/2020 [facility] [address] [place] [address] [phone] White Blood Count 6.6 10 Normal 4.0-10.0 Red Blood Count 3.85 10 Low 4.00-5.40 Hemoglobin 11.2 g/dL Low 12.0-15.5 Hematocrit 36.0 % Normal 36.0-47.0 Mean Corpuscular Volume 93.5 fl Normal 80.0-96.0 Mean Corpuscular Hemoglobin 29.1 pg Normal 27.0-33.0 Mean Corpuscular HGB Conc 31.1 g/dL Low 32.0-36.5 Red Cell Distribution Width 11.9 % Normal 11.5-14.5 Platelet Count, Automated 278 10 Normal 150-450 Neutrophils % 71.3 % High 36.0-66.0 Lymph % 18.3 % Low 24.0-44.0 [place] % 5.9 % High 0.0-5.0 Eos % 3.6 % High 0.0-3.0 Baso % 0.6 % Normal 0.0-1.0 Immature Granulocyte % 0.3 % Normal 0-3.0 Nucleated Red Blood Cell % 0.0 % Normal 0-0 Neutrophils # 4.7 10 Normal 1.5-8.5 Lymph # 1.2 10 Low 1.5-5.0 [place] # 0.4 10 Normal 0.0-0.8 Eos # 0.2 10 Normal 0.0-0.5 Baso # 0.0 10 Normal 0.0-0.2 Basic Metabolic Profile 10/29/[address] [address] [phone] Glucose, Fasting 96 mg/dL Normal 70-100 Blood Urea Nitrogen 17 mg/dL Normal 7-18 Creatinine For GFR 0.52 mg/dL Low 0.55-1.30 Glomerular Filtration Rate > 60.0 Normal >39 1 Sodium Level 136 mEq/L Normal 136-145 Potassium Serum 4.3 mEq/L Normal 3.5-5.1 Chloride Level 99 mEq/L Normal 98-107 Carbon Dioxide Level 32 mEq/L Normal 21-32 Anion Gap 5 mEq/L Low 8-16 Calcium Level 9.1 mg/dL Normal 8.8-10.2 Ua W/ Reflex To Culture 10/29/[address] [address] [phone] Appearance, Urine RFX TURBID High Clear Color, Urine RFX DILCIA Normal Yellow PH,Urine RFX 6.0 units Normal 5.0-9.0 Specific [place] Ur Auto RFX 1.016 Normal 1.002-1.035 Protein, Urine Auto RFX 3+ mg/dL High Negative Glucose, Urine (Ua) Auto RFX NEGATIVE mg/dL Normal Negative Ketone, Urine Auto RFX TRACE mg/dL High Negative Urobilinogen, Urine Auto RFX 0.2 mg/dL Normal 0.0-2.0 Bilirubin, Urine Auto RFX NEGATIVE Normal Negative Nitrite, Urine Auto RFX POSITIVE High Negative Leukocyte Esterase Ur Auto RFX 3+ High Negative Blood, Urine Blood RFX 3+ High Negative WBC, Urine Auto RFX TNTC /HPF High 0-3 RBC, Urine Auto RFX TNTC /HPF High 0-3 Bacteria, Urine Auto RFX 2+ High Negative Squam Epithelial Cell Ur Aurfx 1 /HPF Normal 0-6 Hyaline Cast, Urine Auto RFX 0 /LPF Normal 0-1 Complete Blood Count 10/19/2020 [facility] [employer] Driver: [place] [address] [phone] WBC 6.0 x10*3/UL 4.1 - 10.9 2 RBC 3.83 x10*6/UL Low 4.20 - 6.30 Hemoglobin 11.2 g/dL Low 12.0 - 18.0 Hematocrit 33.3 % Low 37.0 - 51.0 MCV 87.1 fL 80.0 - 97.0 MCH 29.3 pg 26.0 - 32.0 MCHC 33.6 g/dL 31.0 - 38.0 RDW 12.4 % 11.6 - 13.7 PLT 273 x10*3/UL 140 - 440 MPV 8.4 FL 7.8 - 11.0 Lymph % 22.4 % 10.0 - 58.5 Mid % 5.7 % 1.7 - 9.3 Neut % 71.9 % 37.0 - 92.0 Lymph # 1.3 x10*3/UL 0.6 - 4.1 Mid # 0.4 x10*3/UL 0.1 - 0.6 Neut # 4.3 x10*3/UL 2.0 - 7.8 Basic Metabolic Panel 10/19/2020 [facility] [employer]: [place] [address] [phone] Glucose 96 mg/dL 74 - 99 3 BUN 20 mg/dL High 7 - 18 Creatinine 0.6 mg/dL 0.6 - 1.3 Sodium 139 mEq/L 136 - 145 Potassium 4.1 mEq/L 3.5 - 5.1 Chloride 100 mEq/L 98 - 107 Carbon Dioxide 36 mEq/L High 21 - 32 Calcium 9.7 mg/dL 8.5 - 10.1 GFR >= 60 mL/min >60 GFR >= 60 mL/min >60 4 Laboratory test finding 10/19/2020 [facility] [employer] Driver: [place] [address] [phone] Vitamin D 25-Hydroxy 41.1 24.0 - 80.0 5 Istat Chem8+ Panel 08/15/2020 [facility] [address] [place], [place] [id number] [phone] iSTAT HCT 38.0 % Normal 38.0-51.0 iSTAT Glucose 93 mg/dL Normal 70-105 iSTAT Sodium 137 mEq/L Normal 136-145 iSTAT Potassium 3.9 mEq/L Normal 3.5-5.1 iSTAT CA++ 5.0 mg/dL Normal 4.5-5.3 iSTAT Chloride 94 mEq/L Low 98-109 iSTAT Co2 28.0 MM/L High 23.0-27.0 iSTAT BUN 19 mg/dL Normal 8-26 iSTAT Creatinine 0.6 mg/dL Normal 0.6-1.3 CBC With Differential 08/15/2020 [facility] [address] [place] [address] [phone] White Blood Count 9.9 10 Normal 4.0-10.0 Red Blood Count 4.18 10 Normal 4.00-5.40 Hemoglobin 12.3 g/dL Normal 12.0-15.5 Hematocrit 39.1 % Normal 36.0-47.0 Mean Corpuscular Volume 93.5 fl Normal 80.0-96.0 Mean Corpuscular Hemoglobin 29.4 pg Normal 27.0-33.0 Mean Corpuscular HGB Conc 31.5 g/dL Low 32.0-36.5 Red Cell Distribution Width 12.0 % Normal 11.5-14.5 Platelet Count, Automated 301 10 Normal 150-450 Neutrophils % 84.2 % High 36.0-66.0 Lymph % 9.9 % Low 24.0-44.0 [place] % 4.7 % Normal 0.0-5.0 Eos % 0.7 % Normal 0.0-3.0 Baso % 0.2 % Normal 0.0-1.0 Immature Granulocyte % 0.3 % Normal 0-3.0 Nucleated Red Blood Cell % 0.0 % Normal 0-0 Neutrophils # 8.3 10 Normal 1.5-8.5 Lymph # 1.0 10 Low 1.5-5.0 [place] # 0.5 10 Normal 0.0-0.8 Eos # 0.1 10 Normal 0.0-0.5 Baso # 0.0 10 Normal 0.0-0.2 Ua W/ Reflex To Culture 08/15/2020 [facility] [address] [place] [address] [phone] Appearance, Urine RFX CLEAR Normal Clear Color, Urine RFX YELLOW Normal Yellow PH,Urine RFX 6.0 units Normal 5.0-9.0 Specific [place] Ur Auto RFX 1.015 Normal 1.002-1.035 Protein, Urine Auto RFX NEGATIVE mg/dL Normal Negative Glucose, Urine (Ua) Auto RFX NEGATIVE mg/dL Normal Negative Ketone, Urine Auto RFX TRACE mg/dL High Negative Urobilinogen, Urine Auto RFX 0.2 mg/dL Normal 0.0-2.0 Bilirubin, Urine Auto RFX NEGATIVE Normal Negative Nitrite, Urine Auto RFX NEGATIVE Normal Negative Leukocyte Esterase Ur Auto RFX NEGATIVE Normal Negative Blood, Urine Blood RFX NEGATIVE Normal Negative WBC, Urine Auto RFX 2 /HPF Normal 0-3 RBC, Urine Auto RFX 7 /HPF High 0-3 Bacteria, Urine Auto RFX NEGATIVE Normal Negative Squam Epithelial Cell Ur Aurfx 0 /HPF Normal 0-6 Mucus, Urine RFX SMALL Normal Negative Hyaline Cast, Urine Auto RFX 0 /LPF Normal 0-1 Calcium Oxalate Crystals RFX SMALL Normal None Complete Blood Count 07/06/2020 [facility] [employer] Driver: [place] [address] [phone] WBC 7.2 x10*3/UL 4.1 - 10.9 RBC 4.27 x10*6/UL 4.20 - 6.30 Hemoglobin 12.5 g/dL 12.0 - 18.0 Hematocrit 37.0 % 37.0 - 51.0 MCV 86.7 fL 80.0 - 97.0 MCH 29.3 pg 26.0 - 32.0 MCHC 33.8 g/dL 31.0 - 38.0 RDW 12.3 % 11.6 - 13.7 PLT 311 x10*3/UL 140 - 440 MPV 9.0 FL 7.8 - 11.0 Lymph % 21.4 % 10.0 - 58.5 Mid % 6.6 % 1.7 - 9.3 Neut % 72.0 % 37.0 - 92.0 Lymph # 1.5 x10*3/UL 0.6 - 4.1 Mid # 0.5 x10*3/UL 0.1 - 0.6 Neut # 5.2 x10*3/UL 2.0 - 7.8 Laboratory test finding 07/06/2020 [facility], Taxi Cab Driver: [place] [address] [phone] Magnesium 1.8 mg/dL 1.8 - 2.4 Comprehensive Chem Profile 07/06/2020 [facility], [employer] Driver: [place] [address] [phone] Glucose 100 mg/dL High 74 - 99 6 BUN 19 mg/dL High 7 - 18 Creatinine 0.6 mg/dL 0.6 - 1.3 Sodium 142 mEq/L 136 - 145 Potassium 3.9 mEq/L 3.5 - 5.1 Chloride 100 mEq/L 98 - 107 Carbon Dioxide 33 mEq/L High 21 - 32 Calcium 9.8 mg/dL 8.5 - 10.1 Alk. Phosphatase 91 mg/dL 46 - 116 Total Bilirubin 0.5 mg/dL 0.2 - 1.0 Ast (Sgot) 22 U/L 15 - 37 Alt (SGPT) 28 U/L 12 - 78 Albumin 3.9 g/dL 3.4 - 5.0 Total Protein 7.5 g/dL 6.4 - 8.2 A/G Ratio 1.08 CALC 1.00 - 1.90 GFR >= 60 mL/min >60 GFR >= 60 mL/min >60 7 Lipid Profile 07/06/2020 [facility] , Tax[employer] Driver: Dr Charlie Daniel [place] [id number] [phone] Cholesterol 193 mg/dL 131 - 200 Triglycerides 42 mg/dL 30 - 150 HDL Cholesterol 83 mg/dL High 35 - 60 LDL (Calculated) 102 CALC 50 - 159 Laboratory test finding 07/06/2020 [facility], Taxi Cab Driver: Dr Charlie Daniel [place] [id number] [phone] Thyroid Stimulating Hormone 0.73 uIU/mL 0.3 6 - 3.74 1 Units are mL/min/1.73 m2 Chronic Kidney Disease Staging per NKF: Stage I & II GFR >=60 Normal to Mildly Decreased Stage III GFR 30-59 Moderately Decreased Stage IV GFR 15-29 Severely Decreased Stage V GFR <15 Very Little GFR Left ESRD GFR <15 on COMPUTER SYSTEMS DESIGN ANALYST 2 NOTE: CBC VERIFIED 3 100-125 mg/dL PRE-DIABET ES/FASTING >126 mg/dL DIABETES/FASTING 4 CHRONIC KIDNEY DISEASE STAGI NG PER NKF STAGE I & II GFR >= 60 NORMAL TO MILDLY DECREASED STAGE III GFR 30-59 MODERATELY DECREASED STAGE IV GFR 15-29 SEVERELY DECREASED STAGE V GFR <15 VERY LITTLE GFR LEFT ESRD GFR <15 ON COMPUTER SYSTEMS DESIGN ANALYST 5 This test was performed [employer] Vitamin D immunoassay kit. Values obtained with different assay methods should not be used interchangeably. 6 100-125 mg/dL PRE-DIABET ES/FASTING >126 mg/dL DIABETES/FASTING 7 CHRONIC KIDNEY DISEASE STAGI NG PER NKF STAGE I & II GFR >= 60 NORMAL TO MILDLY DECREASED STAGE III GFR 30-59 MODERATELY DECREASED STAGE IV GFR 15-29 SEVERELY DECREASED STAGE V GFR <15 VERY LITTLE GFR LEFT ESRD GFR <15 ON COMPUTER SYSTEMS DESIGN ANALYST Procedures Date Code Description Status 03/14/2015 [id number] Colonoscopy Completed 09/14/2014 [id number] Mammogram Completed 03/17/2013 [id number] Bone Mineral Density Test [facility] 03/17/2013 [id number] Mammogram Completed 08/20/2010 [id number] Mammogram Completed 07/18/2010 [id number] Bone Mineral Density Test [facility] 10/31/2009 [id number] Colonoscopy Completed 08/17/2009 [id number] Mammogram Completed 08/04/2008 [id number] Mammogram Completed 07/14/2008 [id number] Bone Mineral Density Test [facility] 07/31/2007 [id number] Mammogram Completed Medical Devices Description No Information Available Encounters Type Date Location Provider Dx Diagnosis Office Visit 07/06/2020 10:15a [facility] J44.9 Chronic obstructive pulmonar y disease, unspecified Z99.81 Dependence on supplemental o xygen I10 Essential (primary) hyperten tucker E78.00 Pure hypercholesterolemia, u nspecified M54.5 Low back pain N32.81 Overactive bladder D50.9 Iron deficiency anemia, unsp ecified Assessments Date Code Description Provider 10/19/2020 M81.0 Age-related osteoporosis without current pathological fracture Ute Guillermo M.D. 10/19/2020 J44.9 Chronic obstructive pulmonary di sease, unspecified Ute Guillermo M.D. 10/19/2020 Z99.81 Dependence on supplemental oxyge n Ute Guillermo M.D. 10/19/2020 I10 Essential (primary) hypertension Ute Guillermo M.D. 10/19/2020 M54.5 Low back pain Ute conteh M.D. 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 10/19/2020 D50.9 Iron deficiency anemia, unspecif ied Ute Guillermo M.D. 10/19/2020 R62.7 Adult failure to thrive Ute Guillermo M.D. 07/06/2020 J44.9 Chronic obstructive pulmonary di sease, unspecified Ute Guillermo M.D. 07/06/2020 Z99.81 Dependence on supplemental oxyge n Ute Guillermo M.D. 07/06/2020 I10 Essential (primary) hypertension Ute Guillermo M.D. 07/06/2020 E78.00 Pure hypercholesterolemia, unspe cified Ute Guillermo M.D. 07/06/2020 M54.5 Low back pain Ute conteh M.D. 07/06/2020 N32.81 Overactive bladder Ute laboy M.D. 07/06/2020 D50.9 Iron deficiency anemia, unspecif ied Ute Guillermo M.D. Plan of Treatment Future Appointment(s):* 01/23/2021 11:30 am - Ute Guillermo M.D. at [facility] 10/19/2020 - Ute M. 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 Squamous cell CA left lower extremity. Seeing derm. She'll have this removed shortly.10. Health maintenance. Medicare Wellness paperwork reviewed. She is not smoking. Checklist reviewed as well as CAGE, Opioid Risk Tool, cognitive screen and Women's Preventative Wellness. Patient agrees to bone density and this is ordered. Refuses mammogram and is resistant to colon cancer screening. Vaccines are reviewed. The flu shot is reviewed today. She's had the Pneumovax. Refuses Prevnar, Shingrix, Tetanus despite counseling. Functional Status Description No Information Available Mental Status Description No Information Available Referrals Refer to Reason for Referral Status Appt Date Caroline Miles NP CONSULT FOR ATYPICAL LESION LT CHEEK Close d 07/27/2020 [facility] Practitioners [place], [place] [phone]
--- OUTSIDE RECORDS SUMMARY | 2021-01-21 11:30 | CCD ---
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 055185852 ALLERGIES No Known Allergies ENCOUNTERS from 1942 to 2020-11-17 Encounter Location Date Provider Diagnosis [facility] Dermatology [address] [address] Oct, Marc Bal Squamous cell carcinoma of l eft lower leg C44.729 IMMUNIZATIONS No Information SOCIAL HISTORY Tobacco Use: Social History Observation Description Date Details (start date - stop date) Former Smoker Sex Assigned At : Social History Observation Description Sex Assigned At Unknown Pentecostalism: Question Answer Notes Pentecostalism No holiness beliefs that would impact health care., Tobacco Use: Question Answer Notes Are you a: former smoker REASON FOR REFERRAL No Information VITAL SIGNS Weight 77 lbs Oct, Height 61 in Oct, BMI 14.55 kg/m2 Oct, Blood pressure systolic 118 mm Hg Oct, Blood pressure diastolic 68 mm Hg Oct, MEDICATIONS Medication SIG (Take, Route, Frequency, Duration) [...] Information RESULTS No Results REASON FOR VISIT squamous cell carcinoma, left tibia MEDICAL (GENERAL) HISTORY Type Description Date Medical History HYPERTENSION Medical History COPD Medical History HIGH TRIGLYCERIDES Surgical History SURGERY TO REMOVE CYST, OVARY AND APPEND IX AT AGE 5YRS Goals Section No Information Health Concerns No Information MEDICAL EQUIPMENT No Information MENTAL STATUS No Information FUNCTIONAL STATUS No Information ASSESSMENTS Encounter Date Diagnosis Assessment Notes Treatment Notes Treatm ent Clinical Notes Oct, Squamous cell carcinoma of left lower leg (ICD-1 0 - C44.729) Procedure: Excision. [facility] protocol was followed in compliance with [facility] standards. The site was marked and anesthetized with lidocaine 1% with epinephrine. The area was then prepped and draped in a clean fashion. The lesion was excised with margins as below. The lesion was or was not tagged as indicated below. Hemostasis was obtained using hyfrecation. Estimated blood loss was 1mL. Once tissue was removed, then defect was then repaired as below. Tagging: [x ] No [ ] 1200 Initial size: [1.3 x 1.3 ]cm Margins: [ 0.5]cm Size of lesion with margins : [2.3 x 2.3 ]cm , Procedure: Full Thickness Skin Graft. A template was made of the defect using sterile marker and Telfa. Using the template as a guide, a fusiform excision was marked in the left groin. The entire area was infiltrated with 1% Xylocaine with 1:100,000 Epinephrine. The margins were incised as drawn to the level of the subcutaneous fat with a #15 blade, the full thickness skin graft was harvested, and the excess fat/tissue was removed. Hemostasis was maintained with electrocautery. The donor site wounds were closed with deep buried subcutaneous sutures of 5.0 Vicryl. The wound edges were reapproximated with 6.0 Prolene. The graft was then laid into place and trimmed. The graft was then sutured into place using 6.0 Prolene. A sterile dressing was applied and full wound care instructions were given to the patient including handouts and emergency contact information. The patient left the room in good condition and was instructed to follow up in 1 week. Final size: 2.3 x 2.3 cm PLAN OF TREATMENT Treatment Notes Assessment Notes Clinical Notes Squamous cell carcinoma of left lower leg Procedure: Excision. [facility] protocol was followed in compliance with [facility] standards. The site was marked and anesthetized with lidocaine 1% with epinephrine. The area was then prepped and draped in a clean fashion. The lesion was excised with margins as below. The lesion was or was not tagged as indicated below. Hemostasis was obtained using hyfrecation. Estimated blood loss was 1mL. Once tissue was removed, then defect was then repaired as below. Tagging: [x ] No [ ] 1200 Initial size: [1.3 x 1.3 ]cm Margins: [ 0.5]cm Size of lesion with margins : [2.3 x 2.3 ]cm, Procedure: Full Thickness Skin Graft. A template was made of the defect using sterile marker and Telfa. Using the template as a guide, a fusiform excision was marked in the left groin. The entire area was infiltrated with 1% Xylocaine with 1:100,000 Epinephrine. The margins were incised as drawn to the level of the subcutaneous fat with a #15 blade, the full thickness skin graft was harvested, and the excess fat/tissue was removed. Hemostasis was maintained with electrocautery. The donor site wounds were closed with deep buried subcutaneous sutures of 5.0 Vicryl. The wound edges were reapproximated with 6.0 Prolene. The graft was then laid into place and trimmed. The graft was then sutured into place using 6.0 Prolene. A sterile dressing was applied and full wound care instructions were given to the patient including handouts and emergency contact information. The patient left the room in good condition and was instructed to follow up in 1 week.Final size: 2.3 x 2.3 cm Next Appt Details 1 Week Reason: Provider Name:Marc Bal, 11-21 02:00:00 PM, [address] [facility] [facility], [place], [address], Provider Name:Luis Manuel Morales, 2020-12-19 01:00:00 PM, [address], [place], [address], Insurance Providers Payer Name Payer Address Payer Phone Insured Name Patient Relati onship to Insured Coverage Start Date Coverage End Date [employer] [facility] CLAIM DIV [address] [facility] [phone] SHAHZAD GEE MEDICARE Part A and B [address] [facility] [phone] [phone] SHAHZAD GEE
--- OUTSIDE RECORDS SUMMARY | 2021-01-21 11:30 | CCD ---
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 581408731 ALLERGIES No Known Allergies ENCOUNTERS from 1940 to 2020-11-21 Encounter Location Date Provider Diagnosis [facility] Urology [address] [place] [address] Oct Luis Manuel Morales Urinary retention R33.9 IMMUNIZATIONS No Information SOCIAL HISTORY Tobacco Use: Social History Observation Description Date Details (start date - stop date) Former Smoker Sex Assigned At : Social History Observation Description Sex Assigned At Unknown Holiness: Question Answer Notes Holiness No anabaptism beliefs that would impact health care., Tobacco Use: Question Answer Notes Are you a: former smoker REASON FOR REFERRAL No Information VITAL SIGNS Weight 79 lbs Oct, Height 61 in Oct, BMI 14.93 kg/m2 Oct, Heart Rate 86 /min Oct, Respiratory Rate 22 /min Oct, Temperature 97.6 degrees Fahrenheit Oct, Oximetry 90% 2L Oct, Blood pressure systolic 108 mm Hg Oct, Blood pressure diastolic 74 mm Hg Oct, MEDICATIONS Medication SIG (Take, [...] 2020-11-21 Procedure Date Ordered Result Body Site Antony Catheter Insertion 2020-10-04 N/A Medication: Lidocaine HCl 2% Jelly 5mL Intravesically 2020-10-04 N/A Antony Catheter Insertion 2020-11-17 N/A Medication: Lidocaine HCl 2% Jelly 5mL Intravesically 2020-11-17 N/A RESULTS No Results REASON FOR VISIT cath change MEDICAL (GENERAL) HISTORY Type Description Date Medical History HYPERTENSION Medical History COPD Medical History HIGH TRIGLYCERIDES Surgical History SURGERY TO REMOVE CYST, OVARY AND APPEND IX AT AGE 5YRS Goals Section No Information Health Concerns No Information MEDICAL EQUIPMENT No Information MENTAL STATUS No Information FUNCTIONAL STATUS No Information ASSESSMENTS Encounter Date Diagnosis Assessment Notes Treatment Notes Treatm ent Clinical Notes Oct, Urinary retention (ICD-10 - R33.9) PLAN OF TREATMENT Future Test Test Name Order Date Antony Catheter Insertion [id number] Medication: Lidocaine HCl 2% Jelly 5mL Intravesically [id number] Next Appt Details Provider Name:Marc Bal, 11-28 02:00:00 PM, [address] [place], [address], Provider Name:Luis Manuel Morales, 2020-12-19 01:00:00 PM, [address] [place], [address], Insurance Providers Payer Name Payer Address Payer Phone Insured Name Patient Relati onship to Insured Coverage Start Date Coverage End Date MEDICARE Part A and B [facility] [address] [facility] [id number] [phone] PECORI,SHAHZAD L [facility] OPTIONS [facility] CLAIM DIV [address] [facility] [address] SHAHZAD GEE self
--- OUTSIDE RECORDS SUMMARY | 2021-01-21 11:30 | CCD ---
Author Author [facility] Organization [facility] Address Unknown Phone Unavailable Care Team Providers Care Train Braker Name Role Phone Luis Manuel Morales Unavailable PROBLEMS Type Condition ICD9-CM Code [id number] Code Onset Dates Condition S tatus SNOMED Code Notes Problem Bladder spasm N32.89 Active [id number] ALLERGIES No Known Allergies ENCOUNTERS from 1940 to 2020-11-01 Encounter Location Date Provider Diagnosis [facility] [address] [place] [address] Oct Luis Manuel Morales Bladder spasm N32.89 IMMUNIZATIONS No Information SOCIAL HISTORY Sex Assigned At : Social History Observation Description Sex Assigned At Unknown Taoist: Question Answer Notes Taoist No jewish beliefs that would impact health care., REASON FOR REFERRAL No Information VITAL SIGNS No information MEDICATIONS Medication SIG (Take, Route, Frequency, Duration) Notes Start Da te End Date Status Calcium + D 600-200 MG-UNIT 1 tablet with food Orally Once a day for 30 day(s) Active Fenofibrate 48 MG as directed Orally Once a day for 30 day(s) Active Vitamin D 1000 UNIT 1 capsule [...] 1 puff Inhalation Four times daily Active PROCEDURES No Information RESULTS No Results REASON FOR VISIT CANCEL APPT. MEDICAL (GENERAL) HISTORY Type Description Date Medical History HYPERTENSION Medical History COPD Medical History HIGH TRIGLYCERIDES Surgical History SURGERY TO REMOVE CYST, OVARY AND APPEND IX AT AGE 5YRS Goals Section No Information Health Concerns No Information MEDICAL EQUIPMENT No Information MENTAL STATUS No Information FUNCTIONAL STATUS No Information ASSESSMENTS Encounter Date Diagnosis Assessment Notes Treatment Notes Treatm ent Clinical Notes Oct, Bladder spasm (ICD-10 - N32.89) PLAN OF TREATMENT Medication Medication Name Sig Start Date Stop Date Solifenacin Succinate 5 MG 1 tablet Orally Once a day for 90 Next Appt Details Provider Name:Marc Bal, 11-14 02:00:00 PM, [address] [facility], [address] Floor, [place], [address], Provider Name:Luis Manuel Morales, 2020-11-29 03:00:00 PM, [address], [place], [address], Insurance Providers Payer Name Payer Address Payer Phone Insured Name Patient Relati onship to Insured Coverage Start Date Coverage End Date MEDICARE Part A and B [address] [facility] [address] [phone] SHAHZAD GEE [facility] OPTIONS [facility] CLAIM [facility] [address] [facility] [id number] SHAHZAD GEE
--- OUTSIDE RECORDS SUMMARY | 2021-01-21 11:30 | CCD ---
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 431175740 ALLERGIES No Known Allergies ENCOUNTERS from 1942 to 2020-11-22 Encounter Location Date Provider Diagnosis [facility] Dermatology [address] [address] Oct, Marcruss Bal Visit for suture removal Z48 .02 IMMUNIZATIONS No Information SOCIAL HISTORY Tobacco Use: Social History Observation Description Date Details (start date - stop date) Former Smoker Sex Assigned At : Social History Observation Description Sex Assigned At Unknown Scientologist: Question Answer Notes Scientologist No voodoo beliefs that would impact health care., Tobacco [...] a day Active PROCEDURES from 1942 to 2020-11-22 Procedure Date Ordered Result Body Site Suture Removal 2020-11-21 N/A RESULTS No Results REASON FOR VISIT s/r MEDICAL (GENERAL) HISTORY Type Description Date Medical History HYPERTENSION Medical History COPD Medical History HIGH TRIGLYCERIDES Surgical History SURGERY TO REMOVE CYST, OVARY AND APPEND IX AT AGE 5YRS Goals Section No Information Health Concerns No Information MEDICAL EQUIPMENT No Information MENTAL STATUS No Information FUNCTIONAL STATUS No Information ASSESSMENTS Encounter Date Diagnosis Assessment Notes Treatment Notes Treatm ent Clinical Notes Oct, Visit for suture removal (ICD-10 - Z48.02) Well healed incision without evidence of infection to include erythema, purulent discharge or tenderness to palpation around site of healing. Patient currently without any specific complaints. After inspection, sutures were removed by non- physician office personnel. Non-physician office personnel reported that the removal went well and the patient left in stable condition. The patient was instructed to return to clinic anytime between 0700 and 1600 Friday-Friday for any issues relating to the site. If the dermatology clinic is not open, the patient was instructed to report to an emergency department. PLAN OF TREATMENT Treatment Notes Assessment Notes Clinical Notes Visit for suture removal Well healed inc ision without evidence of infection to include erythema, purulent discharge or tenderness to palpation around site of healing. Patient currently without any specific complaints. After inspection, sutures were removed by non-physician office personnel. Non-physician office personnel reported that the removal went well and the patient left in stable condition. The patient was instructed to return to clinic anytime between 0700 and 1600 Friday-Friday for any issues relating to the site. If the dermatology clinic is not open, the patient was instructed to report to an emergency department. Next Appt Details Provider Name:Marc Bal, 11-28 02:00:00 PM, [address] [place], [address], Provider Name:Luis Manuel Morales, 2020-12-19 01:00:00 PM, [address], [place], [address], Insurance Providers Payer Name Payer Address Payer Phone Insured Name Patient Relati onship to Insured Coverage Start Date Coverage End Date MEDICARE Part A and B [address] [facility] [address] [phone] SHAHZAD GEE [facility] HEALTH CARE [facility] CLAIM [facility] [address] [facility] [id number] SHAHZAD GEE self
--- OUTSIDE RECORDS SUMMARY | 2021-01-21 11:30 | CCD | Continuity of Care Document ---
Author Organization Unknown Address Unknown Phone Unavailable Care Team Providers Care Shoe Puller Name Role Phone Ute Guillermo MD [facility] [phone] Problems Active Problems Provider Date Chronic obstructive lung disease Monica Mercer FNP Onset: 02/15/2013 Essential hypertension Monica Mercer FNP Onset: 02/15/2013 Osteoporosis Monica Mercer FNP Onset: 02/15/2013 Vitamin D deficiency Monica Mercer FNP Onset: 02/15/2013 Pure hypercholesterolemia Monica Mercer FNP Onset: 013 Female climacteric state Monica Mercer [...] Guillermo M.D. 10/19/2020 Calcium 600 + D [id number] Tab lets 1 by mouth every day [...] 1 by mouth every day [facility] Combivent Respimat 20-100mcg/Act A erosol inhale 1 puff by mouth four times daily as needed 12units Ute Guillermo M.D. 04/13/2013 Spiriva Handihaler 18mcg Capsules inhale the contents of 1 capsule via inhalation device daily. maximum daily dose is 1 90caps Ute Guillermo M.D. 02/08/2013 One Daily Womens Tablets 1 p o qd Monica Mercer FNP 09/25/2012 Vitamin D 1000Unit Capsules 1 po qd [facility] 09/14/2010 Tramadol HCL 50mg Tablets 1 by mouth every 6 h/prn 30tabs Ute Guillermo M.D. 09/14/20 10 Tamsulosin HCL 0.4mg Capsules 1 daily 1/2 hour after same meal Unknown Oxybutynin Chloride ER 5mg Tablets ER 24HR 1 by mouth every day Unknown 0000/0 000 Medications Administered in Office Medication SIG Qnty Indications Ordering Provider Date [facility]/03/2017 Administration Of Flu Vaccine Inj [facility] 10/13/2014 [facility] 08/31/2013 Administration Of Flu Vaccine [facility]j [facility] 09/25/2012 Administration Of Flu Vaccine Inj [facility] 09/23/2011 Immunizations CPT Code Status Date Vaccine Lot # [id number] Given 10/19/2020 Influenza Vaccin e Quadrivalent Preser/Antibiotic Free Im Use [id number] U-Flu Given 09/21/2019 Influenza,Unspecified U-Flu Given 09/28/2018 Influenza,Unspecified 39090 Given 10/03/2017 Influenza Vaccin e Quadrivalent Preser/Antibiotic Free Im Use [id number] 08563 Given 08/19/2017 Zostavax Q2037 Given 10/13/2014 Fluvirin Virus Vaccine 72468 21 Q2037 Given 08/31/2013 Fluvirin Virus Vaccine Q2037 Given 09/25/2012 Fluvirin Virus Vaccine 90639 01 68113 Given 09/25/2012 Pneumovax 23 Q2037 Given 09/23/2011 Fluvirin Virus Vaccine 80633 Given 09/23/2011 Pneumovax 23 47325 Refused 10/03/2017 Prevnar 13 Vital Signs Date [...] H/L Range Note CBC With Differential 10/29/[address] [address] [phone] White Blood Count 6.6 10 Normal 4.0-10.0 [...] 36.0-66.0 Lymph % 18.3 % Low 24.0-44.0 Andrews % 5.9 % High 0.0-5.0 Eos % 3.6 % High 0.0-3.0 Baso % 0.6 % Normal 0.0-1.0 Immature Granulocyte % 0.3 % Normal 0-3.0 Nucleated Red Blood Cell % 0.0 % Normal 0-0 Neutrophils # 4.7 10 Normal 1.5-8.5 Lymph # 1.2 10 Low 1.5-5.0 Andrews # 0.4 10 Normal 0.0-0.8 Eos # 0.2 10 Normal 0.0-0.5 Baso # 0.0 10 Normal 0.0-0.2 Basic Metabolic Profile 10/29/2020 [place] [id number] [phone] Glucose, Fasting 96 mg/dL Normal 70-100 Blood [...] 8.8-10.2 Ua W/ Reflex To Culture 10/29/[address] [address] [phone] Appearance, Urine RFX TURBID High Clear Color, Urine RFX DILCIA Normal Yellow PH,Urine RFX 6.0 units Normal 5.0-9.0 Specific [place] Ur Auto RFX 1.016 Normal 1.002-1.035 Protein, [...] Urine Auto RFX 0 /LPF Normal 0-1 Reflex Urine Culture 10/29/2020 [facility] enter [address] [place], [place] [address] [phone] Reflex Urine Culture FULL REPORT IN L <SEE NOTE> Norm al 2 Complete Blood Count 10/19/2020 [facility] [place] Operator: [place] [address] [phone] WBC 6.0 x10*3/UL 4.1 - 10.9 3 RBC 3.83 x10*6/UL Low 4.20 - 6.30 [...] 2.0 - 7.8 Basic Metabolic Panel 10/19/2020 [facility] [facility] Operator: [place] [address] [phone] Glucose 96 mg/dL 74 - 99 4 BUN 20 mg/dL High 7 - 18 Creatinine 0.6 mg/dL 0.6 - 1.3 Sodium 139 mEq/L 136 - 145 Potassium 4.1 mEq/L 3.5 - 5.1 Chloride 100 mEq/L 98 - 107 Carbon Dioxide 36 mEq/L High 21 - 32 Calcium 9.7 mg/dL 8.5 - 10.1 GFR >= 60 mL/min >60 GFR >= 60 mL/min >60 5 Laboratory test finding 10/19/2020 [facility] [place] [facility] Operator: [place] [address] [phone] Vitamin D 25-Hydroxy 41.1 24.0 - 80.0 6 Istat Chem8+ Panel 08/15/2020 [facility] nter [address] [place], [place] [address] [phone] iSTAT HCT 38.0 % Normal 38.0-51.0 iSTAT Glucose 93 mg/dL Normal 70-105 iSTAT Sodium 137 mEq/L Normal 136-145 iSTAT Potassium 3.9 mEq/L Normal 3.5-5.1 iSTAT CA++ 5.0 mg/dL Normal 4.5-5.3 iSTAT Chloride 94 mEq/L Low 98-109 iSTAT Co2 28.0 MM/L High 23.0-27.0 iSTAT BUN 19 mg/dL Normal 8-26 iSTAT Creatinine 0.6 mg/dL Normal 0.6-1.3 CBC With Differential 08/15/2020 [facility] [address] [place] [address] [phone] White Blood Count 9.9 10 Normal 4.0-10.0 [...] 36.0-66.0 Lymph % 9.9 % Low 24.0-44.0 Andrews % 4.7 % Normal 0.0-5.0 Eos % 0.7 % Normal 0.0-3.0 Baso % 0.2 % Normal 0.0-1.0 Immature Granulocyte % 0.3 % Normal 0-3.0 Nucleated Red Blood Cell % 0.0 % Normal 0-0 Neutrophils # 8.3 10 Normal 1.5-8.5 Lymph # 1.0 10 Low 1.5-5.0 Andrews # 0.5 10 Normal 0.0-0.8 Eos # 0.1 10 Normal 0.0-0.5 Baso # 0.0 10 Normal 0.0-0.2 Ua W/ Reflex To Culture 08/15/2020 [place] [address] [place], [place] [address] [phone] Appearance, Urine RFX CLEAR Normal Clear Color, Urine RFX YELLOW Normal Yellow PH,Urine RFX 6.0 units Normal 5.0-9.0 Specific [place] Ur Auto RFX 1.015 Normal 1.002-1.035 Protein, [...] SMALL Normal None Complete Blood Count 07/06/2020 [facility] [place] Operator: Dr Charlie Daniel [place], [place] [id number] [phone] WBC 7.2 x10*3/UL 4.1 - 10.9 RBC [...] 2.0 - 7.8 Laboratory test finding 07/06/2020 [facility], [place] Operator: [place] [address] [phone] Magnesium 1.8 mg/dL 1.8 - 2.4 Comprehensive Chem Profile 07/06/2020 [facility] [place] Operator: [place] [address] [phone] Glucose 100 mg/dL High 74 - 99 7 BUN 19 mg/dL High 7 - 18 [...] mL/min >60 GFR >= 60 mL/min >60 8 Lipid Profile 07/06/2020 [facility] , [place] Operator: [place] [address] [phone] Cholesterol 193 mg/dL 131 - 200 Triglycerides 42 mg/dL 30 - 150 HDL Cholesterol 83 mg/dL High 35 - 60 LDL (Calculated) 102 CALC 50 - 159 Laboratory test finding 07/06/2020 [facility] [place] Operator: Dr Charlie Daniel [place], [place] [id number] [phone] Thyroid Stimulating Hormone 0.73 uIU/mL 0.3 6 - 3.74 1 Units are mL/min/1.73 m2 Chronic Kidney Disease Staging per NKF: Stage I & II GFR >=60 Normal to Mildly Decreased Stage III GFR 30-59 Moderately Decreased Stage IV GFR 15-29 Severely Decreased Stage V GFR <15 Very Little GFR Left ESRD GFR <15 on ELEMENTARY SCHOOL REGISTRAR 2 FULL REPORT IN LAB NOTES (eC W and Medluis). ORGANISM 1: STREP AGALACTIAE GROUP B COLONY COUNT >100,000 ORGANISM 1: STREP AGALACTIAE GROUP B 3 NOTE: CBC VERIFIED 4 100-125 mg/dL PRE-DIABET ES/FASTING >126 mg/dL DIABETES/FASTING 5 CHRONIC KIDNEY DISEASE STAGI NG PER NKF STAGE I & II GFR >= 60 NORMAL TO MILDLY DECREASED STAGE III GFR 30-59 MODERATELY DECREASED STAGE IV GFR 15-29 SEVERELY DECREASED STAGE V GFR <15 VERY LITTLE GFR LEFT ESRD GFR <15 ON ELEMENTARY SCHOOL REGISTRAR 6 This test was performed M[employer] Vitamin D immunoassay kit. Values obtained with different assay methods should not be used interchangeably. 7 100-125 mg/dL PRE-DIABET ES/FASTING >126 mg/dL DIABETES/FASTING 8 CHRONIC KIDNEY DISEASE STAGI NG PER NKF STAGE I & II GFR >= 60 NORMAL TO MILDLY DECREASED STAGE III GFR 30-59 MODERATELY DECREASED STAGE IV GFR 15-29 SEVERELY DECREASED STAGE V GFR <15 VERY LITTLE GFR LEFT ESRD GFR <15 ON ELEMENTARY SCHOOL REGISTRAR Procedures Date Code Description Status 03/14/2015 [id number] Colonoscopy Completed 09/14/2014 [id number] Mammogram Completed 03/17/2013 [id number] Bone Mineral Density Test Comple tato 03/17/2013 [id number] Mammogram Completed 08/20/2010 [id number] Mammogram Completed 07/18/2010 [id number] Bone Mineral Density Test Comple tato 10/31/2009 [id number] Colonoscopy Completed 08/17/2009 [id number] Mammogram Completed 08/04/2008 [id number] Mammogram Completed 07/14/2008 [id number] Bone Mineral Density Test Comple tato 07/31/2007 [id number] Mammogram Completed Medical Devices Description No Information Available Encounters Type Date Location Provider Dx Diagnosis Office Visit 07/06/2020 10:15a [facility] David Guillermo M.D. 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 10/19/2020 J44.9 Chronic obstructive pulmonary [...] 11:30 am - Ute Guillermo M.D. at [facility]. 10/19/2020 - Ute Guillermo M.D.* M81.0 Age-related osteoporosis without current pathological [...] ATYPICAL LESION LT CHEEK Close d 07/27/2020 [facility] Nurse Practitioners [place], [place] [phone]
--- OUTSIDE RECORDS SUMMARY | 2021-01-21 11:30 | CCD | Continuity of Care Document ---
Author Organization Unknown Address Unknown Phone Unavailable Care Team Providers Care Straddle Carrier Operator Name Role Phone Ute Guillermo MD [facility] [phone] Problems Active Problems Provider Date Chronic obstructive [...] Guillermo M.D. 10/19/2020 Calcium 600 + D [id number] Tab lets 1 by mouth every day [...] 1 by mouth every day 90tabs [facility] Combivent Respimat 20-100mcg/Act A erosol [...] D 1000Unit Capsules 1 po qd [facility] 09/14/2010 Tramadol HCL 50mg Tablets 1 by mouth every 6 h/prn 30tabs Ute Guillermo M.D. 09/14/20 10 Tamsulosin HCL 0.4mg Capsules 1 daily 1/2 hour after same meal Unknown Oxybutynin Chloride ER 5mg Tablets ER 24HR 1 by mouth every day Unknown 0000/0 000 Medications Administered in Office Medication SIG Qnty Indications Ordering Provider Date Administration Of Flu [facility]ine [facility] 10/03/2017 Administration Of [facility]ine [facility] 10/13/2014 Administration Of Flu Vaccine [facility] 08[facility]31/2013 [facility] 09/25/2012 Administration Of [facility]ine [facility] 09/23/2011 Immunizations CPT Code Status Date Vaccine Lot # [id number] Given 10/19/2020 Influenza Vaccin e Quadrivalent Preser/Antibiotic Free Im Use [id number] U-Flu Given 09/21/2019 Influenza,Unspecified U-Flu Given 09/28/2018 Influenza,Unspecified 06393 Given 10/03/2017 Influenza Vaccin e Quadrivalent Preser/Antibiotic Free Im Use [id number] 84023 Given 08/19/2017 Zostavax Q2037 Given 10/13/2014 Fluvirin Virus Vaccine [id number] 21 Q2037 Given 08/31/2013 Fluvirin Virus Vaccine Q2037 Given 09/25/2012 Fluvirin Virus Vaccine 17692 01 83638 Given 09/25/2012 Pneumovax 23 Q2037 Given 09/23/2011 Fluvirin Virus Vaccine 16257 Given 09/23/2011 Pneumovax 23 17902 Refused 10/03/2017 Prevnar 13 Vital Signs Date [...] H/L Range Note CBC With Differential 10/29/[address] [address] [phone] White Blood Count 6.6 10 Normal 4.0-10.0 [...] 36.0-66.0 Lymph % 18.3 % Low 24.0-44.0 Walsh % 5.9 % High 0.0-5.0 Eos % 3.6 % High 0.0-3.0 Baso % 0.6 % Normal 0.0-1.0 Immature Granulocyte % 0.3 % Normal 0-3.0 Nucleated Red Blood Cell % 0.0 % Normal 0-0 Neutrophils # 4.7 10 Normal 1.5-8.5 Lymph # 1.2 10 Low 1.5-5.0 Walsh # 0.4 10 Normal 0.0-0.8 Eos # 0.2 10 Normal 0.0-0.5 Baso # 0.0 10 Normal 0.0-0.2 Basic Metabolic Profile 10/29/2020 [place] [id number] [phone] Glucose, Fasting 96 mg/dL Normal 70-100 Blood [...] 8.8-10.2 Ua W/ Reflex To Culture 10/29/[address] [address] [phone] Appearance, Urine RFX TURBID High Clear Color, Urine RFX DILCIA Normal Yellow PH,Urine RFX 6.0 units Normal 5.0-9.0 Specific Justice Ur Auto RFX 1.016 Normal 1.002-1.035 Protein, [...] /LPF Normal 0-1 Complete Blood Count 10/19/2020 [facility] Work Counselor: [place] [address] [phone] WBC 6.0 x10*3/UL 4.1 - 10.9 2 [...] 2.0 - 7.8 Basic Metabolic Panel 10/19/2020 [facility] Work Counselor: [place] [address] [phone] Glucose 96 mg/dL 74 - 99 3 [...] mL/min >60 4 Laboratory test finding 10/19/2020 [facility] Work Counselor: [place] [address] [phone] Vitamin D 25-Hydroxy 41.1 24.0 - 80.0 5 Istat Chem8+ Panel 08/15/2020 [facility] nter [address] [place], [place] [id number] [phone] iSTAT HCT 38.0 % Normal 38.0-51.0 iSTAT Glucose 93 mg/dL Normal 70-105 iSTAT Sodium 137 mEq/L Normal 136-145 iSTAT Potassium 3.9 mEq/L Normal 3.5-5.1 iSTAT CA++ 5.0 mg/dL Normal 4.5-5.3 iSTAT Chloride 94 mEq/L Low 98-109 iSTAT Co2 28.0 MM/L High 23.0-27.0 iSTAT BUN 19 mg/dL Normal 8-26 iSTAT Creatinine 0.6 mg/dL Normal 0.6-1.3 CBC With Differential 08/15/2020 [facility] [address] [place], [place] [id number] [phone] White Blood Count 9.9 10 Normal 4.0-10.0 [...] 36.0-66.0 Lymph % 9.9 % Low 24.0-44.0 Walsh % 4.7 % Normal 0.0-5.0 Eos % 0.7 % Normal 0.0-3.0 Baso % 0.2 % Normal 0.0-1.0 Immature Granulocyte % 0.3 % Normal 0-3.0 Nucleated Red Blood Cell % 0.0 % Normal 0-0 Neutrophils # 8.3 10 Normal 1.5-8.5 Lymph # 1.0 10 Low 1.5-5.0 Walsh # 0.5 10 Normal 0.0-0.8 Eos # 0.1 10 Normal 0.0-0.5 Baso # 0.0 10 Normal 0.0-0.2 Ua W/ Reflex To Culture 08/15/2020 [facility] [address] [place] [address] [phone] Appearance, Urine RFX CLEAR Normal Clear Color, Urine RFX YELLOW Normal Yellow PH,Urine RFX 6.0 units Normal 5.0-9.0 Specific [place] Ur Auto RFX 1.015 Normal 1.002-1.035 Protein, [...] SMALL Normal None Complete Blood Count 07/06/2020 [facility] Work Counselor: [place] [address] [phone] WBC 7.2 x10*3/UL 4.1 - 10.9 RBC [...] 2.0 - 7.8 Laboratory test finding 07/06/2020 [facility], Work Counselor: [place] [address] [phone] Magnesium 1.8 mg/dL 1.8 - 2.4 Comprehensive Chem Profile 07/06/2020 [facility] Work Counselor: [place] [address] [phone] Glucose 100 mg/dL High 74 - 99 [...] 60 mL/min >60 7 Lipid Profile 07/06/2020 [facility] , Work Counselor: [place] [address] [phone] Cholesterol 193 mg/dL 131 - 200 Triglycerides 42 mg/dL 30 - 150 HDL Cholesterol 83 mg/dL High 35 - 60 LDL (Calculated) 102 CALC 50 - 159 Laboratory test finding 07/06/2020 [facility], Work Counselor: [place] [address] [phone] Thyroid Stimulating Hormone 0.73 uIU/mL 0.3 6 - 3.74 1 Units are mL/min/1.73 m2 Chronic Kidney Disease Staging per NKF: Stage I & II GFR >=60 Normal to Mildly Decreased Stage III GFR 30-59 Moderately Decreased Stage IV GFR 15-29 Severely Decreased Stage V GFR <15 Very Little GFR Left ESRD GFR <15 on COMMUNICATION SIGNALS INTELLIGENCE 2 NOTE: CBC VERIFIED 3 100-125 mg/dL PRE-DIABET ES/FASTING >126 mg/dL DIABETES/FASTING 4 CHRONIC KIDNEY DISEASE STAGI NG PER NKF STAGE I & II GFR >= 60 NORMAL TO MILDLY DECREASED STAGE III GFR 30-59 MODERATELY DECREASED STAGE IV GFR 15-29 SEVERELY DECREASED STAGE V GFR <15 VERY LITTLE GFR LEFT ESRD GFR <15 ON COMMUNICATION SIGNALS INTELLIGENCE 5 This test was performed [employer] Vitamin D immunoassay kit. Values obtained with [...] LITTLE GFR LEFT ESRD GFR <15 ON COMMUNICATION SIGNALS INTELLIGENCE Procedures Date Code Description Status 03/14/2015 [id number] Colonoscopy Completed 09/14/2014 [id number] Mammogram Completed 03/17/2013 [id number] Bone Mineral Density Test Comple [facility] 03/17/2013 [id number] Mammogram Completed 08/20/2010 [id number] Mammogram Completed 07/18/2010 [id number] Bone Mineral Density Test Comple [facility] 10/31/2009 [id number] Colonoscopy Completed 08/17/2009 [id number] Mammogram Completed 08/04/2008 [id number] Mammogram Completed 07/14/2008 [id number] Bone Mineral Density Test Comple [facility] 07/31/2007 [id number] Mammogram Completed Medical Devices Description No Information Available Encounters Type Date Location Provider Dx Diagnosis Office Visit 07/06/2020 10:15a [facility] P.Arash Guillermo M.D. J44.9 Chronic obstructive pulmonar y [...] 11:30 am - [facility] 10/19/2020 - Ute Guillermo M.D.* M81.0 Age-related [...] ATYPICAL LESION LT CHEEK Close d 07/27/2020 [facility] Nurse Practitioners [place], [place] [phone]
--- OUTSIDE RECORDS SUMMARY | 2021-01-21 11:30 | CCD | Continuity of Care Document ---
Author Organization Unknown Address Unknown Phone Unavailable Care Team Providers Care Cosmetic Dentist Name Role Phone Ute Guillermo MD [facility] [phone] Problems Active Problems Provider Date Chronic obstructive [...] Guillermo M.D. 10/19/2020 Calcium 600 + D [id number] Tab lets 1 by mouth every day [...] Provider Date Administration Of Flu Vaccine Inj joe Guillermo M.D. 10/19/20 20 Administration Of Flu Vaccine Inj Monica Camarillo FNP 10/03/2017 Administration Of Flu Vaccine Inj Monica Camarillo FNP 10/13/2014 Administration Of Flu Vaccine Inj Monica Camarillo FNP 08/31/2013 [facility] 09/[facility]/2011 Immunizations CPT Code Status Date Vaccine Lot # [id number] Given 10/19/2020 Influenza Vaccin e Quadrivalent Preser/Antibiotic Free Im Use [id number] U-Flu Given 09/21/2019 Influenza,Unspecified U-Flu Given 09/28/2018 Influenza,Unspecified 69050 Given 10/03/2017 Influenza Vaccin e Quadrivalent Preser/Antibiotic Free Im Use [id number] 73036 Given 08/19/2017 Zostavax Q2037 Given 10/13/2014 Fluvirin Virus Vaccine 01590 21 Q2037 Given 08/31/2013 Fluvirin Virus Vaccine Q2037 Given 09/25/2012 Fluvirin Virus Vaccine 96403 01 65093 Given 09/25/2012 Pneumovax 23 Q2037 Given 09/23/2011 Fluvirin Virus Vaccine 38033 Given 09/23/2011 Pneumovax 23 05144 Refused 10/03/2017 Prevnar 13 Vital Signs Date [...] H/L Range Note CBC With Differential 10/29/[address] [id number] [phone] White Blood Count 6.6 10 Normal 4.0-10.0 [...] 36.0-66.0 Lymph % 18.3 % Low 24.0-44.0 [place] % 5.9 % High 0.0-5.0 Eos % 3.6 % High 0.0-3.0 Baso % 0.6 % Normal 0.0-1.0 Immature Granulocyte % 0.3 % Normal 0-3.0 Nucleated Red Blood Cell % 0.0 % Normal 0-0 Neutrophils # 4.7 10 Normal 1.5-8.5 Lymph # 1.2 10 Low 1.5-5.0 [place] # 0.4 10 Normal 0.0-0.8 Eos # 0.2 10 Normal 0.0-0.5 Baso # 0.0 10 Normal 0.0-0.2 Basic Metabolic Profile 10/29/[address] [address] [phone] Glucose, Fasting 96 mg/dL Normal 70-100 Blood [...] 8.8-10.2 Ua W/ Reflex To Culture 10/29/[address] [address] [phone] Appearance, Urine RFX TURBID High Clear Color, Urine RFX DILCIA Normal Yellow PH,Urine RFX 6.0 units Normal 5.0-9.0 Specific [place] Ur Auto RFX 1.016 Normal 1.002-1.035 Protein, [...] /LPF Normal 0-1 Reflex Urine Culture 10/29/2020 [facility] enter [address] [place] [address] [phone] Reflex Urine Culture FULL REPORT IN L <SEE NOTE> Norm al 2 Complete Blood Count 10/19/2020 [facility] Cashier Gambling: Dr Charlie Daniel [place], [place] [address] [phone] WBC 6.0 x10*3/UL 4.1 - 10.9 3 [...] 2.0 - 7.8 Basic Metabolic Panel 10/19/2020 [facility] Cashier Gambling: [place] [address] [phone] Glucose 96 mg/dL 74 - 99 4 [...] mL/min >60 5 Laboratory test finding 10/19/2020 [facility] Cashier Gambling: [place] [address] [phone] Vitamin D 25-Hydroxy 41.1 24.0 - 80.0 6 Istat Chem8+ Panel 08/15/2020 [facility] nter [address] [place] [address] [phone] iSTAT HCT 38.0 % Normal 38.0-51.0 iSTAT Glucose 93 mg/dL Normal 70-105 iSTAT Sodium 137 mEq/L Normal 136-145 iSTAT Potassium 3.9 mEq/L Normal 3.5-5.1 iSTAT CA++ 5.0 mg/dL Normal 4.5-5.3 iSTAT Chloride 94 mEq/L Low 98-109 iSTAT Co2 28.0 MM/L High 23.0-27.0 iSTAT BUN 19 mg/dL Normal 8-26 iSTAT Creatinine 0.6 mg/dL Normal 0.6-1.3 CBC With Differential 08/15/2020 [facility] [address] [place] [address] [phone] White Blood Count 9.9 10 Normal 4.0-10.0 [...] 36.0-66.0 Lymph % 9.9 % Low 24.0-44.0 [place] % 4.7 % Normal 0.0-5.0 Eos % 0.7 % Normal 0.0-3.0 Baso % 0.2 % Normal 0.0-1.0 Immature Granulocyte % 0.3 % Normal 0-3.0 Nucleated Red Blood Cell % 0.0 % Normal 0-0 Neutrophils # 8.3 10 Normal 1.5-8.5 Lymph # 1.0 10 Low 1.5-5.0 [place] # 0.5 10 Normal 0.0-0.8 Eos # 0.1 10 Normal 0.0-0.5 Baso # 0.0 10 Normal 0.0-0.2 Ua W/ Reflex To Culture 08/15/2020 [facility] [address] [place] [address] [phone] Appearance, Urine RFX CLEAR Normal Clear Color, Urine RFX YELLOW Normal Yellow PH,Urine RFX 6.0 units Normal 5.0-9.0 Specific [place] Ur Auto RFX 1.015 Normal 1.002-1.035 Protein, [...] SMALL Normal None Complete Blood Count 07/06/2020 [facility] Cashier Gambling: [place] [address] [phone] WBC 7.2 x10*3/UL 4.1 - 10.9 RBC [...] 2.0 - 7.8 Laboratory test finding 07/06/2020 [facility], Cashier Gambling: [place] [address] [phone] Magnesium 1.8 mg/dL 1.8 - 2.4 Comprehensive Chem Profile 07/06/2020 [facility], Cashier Gambling: [place] [address] [phone] Glucose 100 mg/dL High 74 - 99 [...] 60 mL/min >60 8 Lipid Profile 07/06/2020 [facility] , Cashier Gambling: [place] [address] [phone] Cholesterol 193 mg/dL 131 - 200 Triglycerides 42 mg/dL 30 - 150 HDL Cholesterol 83 mg/dL High 35 - 60 LDL (Calculated) 102 CALC 50 - 159 Laboratory test finding 07/06/2020 [facility] Cashier Gambling: [place] [address] [phone] Thyroid Stimulating Hormone 0.73 uIU/mL 0.3 6 - 3.74 1 Units are mL/min/1.73 m2 Chronic Kidney Disease Staging per NKF: Stage I & II GFR >=60 Normal to Mildly Decreased Stage III GFR 30-59 Moderately Decreased Stage IV GFR 15-29 Severely Decreased Stage V GFR <15 Very Little GFR Left ESRD GFR <15 on SKETCH MAKER 2 FULL REPORT IN LAB NOTES (eC W and Medluis). ORGANISM 1: ESCHERICHIA COLI COLONY COUNT >100,000 ORGANISM 2: STREP AGALACTIAE GROUP B COLONY COUNT >100,000 ORGANISM 1: ESCHERICHIA COLI ORGANISM 2: STREP AGALACTIAE GROUP B ESCHERICHIA COLI: REACTION TRIMETHOPRIM/SULFAMETHOXAZOLE IV 160mg TMP & 800mg SMXq6h <=20 S TRIMETHOPRIM/SULFAMETHOXAZOLE PO Bactrim DS Bid <=20 S AMPICILLIN IV 500mg q6h 16 I AMPICILLIN PO 500mg q6h fasting 16 I GENTAMICIN IV 80mg q8h <=1 S NITROFURANTOIN PO 100mg BID <=16 S CEFAZOLIN IV 1gm q8h <=4 S LEVOFLOXACIN IV 500mg qd <=0.12 S LEVOFLOXACIN PO 250mg qd <=0.12 S LEVOFLOXACIN PO 500mg qd <=0.12 S TOBRAMYCIN IV 80mg q8h <=1 S CEFTRIAXONE IV 1gm q24h <=1 S CEFTAZIDIME IV 1gm q8h <=1 S AMPICILLIN/SULBACTAM IV 1.5g q6h 4 S PIPERACILLIN/TAZOBACTAM IV 2.25 gm q6h <=4 S AZTREONAM IV 1gm q8h >=64 R ERTAPENEM IV 1gm qd <=0.5 S MEROPENEM IV 1 gm q8h <=0.25 S MEROPENEM IV 500 mg q8h <=0.25 S TIGECYCLINE IV 50mg q12h <=0.5 S CEFEPIME IV 1 gm q12h <=1 S CEFEPIME IV 2 gm q12h <=1 S EXTD BRD SPCTRM BETA LACTAMASE IV NEGATIVE FOR ESBL STREP AGALACTIAE GROUP B: REACTION ICR (INDUCIBLE CC RESISTANCE) IV ICR TEST RESULT TETRACYCLINE PO 250 mg qid >=16 R PENICILLIN G IV 1 mu q6H 0.12 S PENICILLIN G IV 1 mu q6h 0.12 S PENICILLIN G PO 250mg q6h fasting 0.12 S AMPICILLIN IV 500mg q6h <=0.25 S AMPICILLIN PO 500mg q6h fasting <=0.25 S ERYTHROMYCIN IV 500mg q6h >=8 R ERYTHROMYCIN PO 500mg q6h >=8 R LEVOFLOXACIN IV 500mg qd 1 S LEVOFLOXACIN PO 250mg qd 1 S LEVOFLOXACIN PO 500mg qd 1 S VANCOMYCIN IV 500mg q8h 0.5 S MOXIFLOXACIN (AVELOX) IV 400MG QD 0.12 S MOXIFLOXACIN (AVELOX) PO 400MG QD 0.12 S CEFTRIAXONE IV 1gm q24h <=0.12 S CEFOTAXIME IV 1gm q8h <=0.12 S An isolate with a (+) POSITIVE ICR test is considered CLINDAMYCIN RESISTANT; however, clindamycin may still be effective in some patients. An isolate with a (-) NEGATIVE ICR test is considered CLIDAMYCIN SENSITIVE. 3 NOTE: CBC VERIFIED 4 100-125 mg/dL PRE-DIABET ES/FASTING >126 mg/dL DIABETES/FASTING 5 CHRONIC KIDNEY DISEASE STAGI NG PER NKF STAGE I & II GFR >= 60 NORMAL TO MILDLY DECREASED STAGE III GFR 30-59 MODERATELY DECREASED STAGE IV GFR 15-29 SEVERELY DECREASED STAGE V GFR <15 VERY LITTLE GFR LEFT ESRD GFR <15 ON SKETCH MAKER 6 This test was performed josie fernandes [employer] Vitamin D immunoassay kit. Values obtained with [...] LITTLE GFR LEFT ESRD GFR <15 ON SKETCH MAKER Procedures Date Code Description Status 10/19/2020 [id number] EKG/Interpretation & Report Comp leted 03/14/2015 [id number] Colonoscopy Completed 09/14/2014 [id number] Mammogram Completed 03/17/2013 [id number] Bone Mineral Density Test Comple tato 03/17/2013 [id number] Mammogram Completed 08/20/2010 [id number] Mammogram Completed 07/18/2010 [id number] Bone Mineral Density Test Comple tato 10/31/2009 [id number] Colonoscopy Completed 08/17/2009 [id number] Mammogram Completed 08/04/2008 [id number] Mammogram Completed 07/14/2008 [id number] Bone Mineral Density Test Comple tato 07/31/2007 [id number] Mammogram Completed Medical Devices Description No Information Available Encounters Type Date Location Provider Dx Diagnosis Office Visit 10/19/2020 10:30a [facility] PJamse Guillermo M.D. 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 J44.9 Chronic obstructive pulmonar y disease, [...] Adult failure to thrive Ute Guillermo M.D. 10/19/2020 Z23 Encounter for immunization Ute Guillermo M.D. 10/19/2020 Z13.89 Encounter for screening for othe r disorder Ute Guillermo M.D. 07/06/2020 J44.9 Chronic obstructive [...] 11:30 am - [facility] 10/19/2020 - Ute Guillermo M.D.* M81.0 Age-related osteoporosis without current pathological fracture * J44.9 Chronic obstructive pulmonary disease, unspecified * Z99.81 Dependence on supplemental oxygen * I10 Essential (primary) hypertension * M54.5 Low back pain * N31.8 Other neuromuscular dysfunction of bladder * D50.9 Iron deficiency anemia, unspecified * R62.7 Adult failure to thrive * Z23 Encounter for immunization * Z13.89 Encounter for screening for other disorder * All * New Medication:* Alendronate Sodium [...] Reason for Referral Status Appt Date Caroline Miles,[place] CONSULT FOR ATYPICAL LESION LT CHEEK Close d 07/27/2020 [facility] Nurse Practitioners [place], [place] [phone]
--- OUTSIDE RECORDS SUMMARY | 2021-01-21 11:30 | CCD ---
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 057858286 ALLERGIES No Known Allergies ENCOUNTERS from 1940 to 2020-11-14 Encounter Location Date Provider Diagnosis [facility] [address] [place] [address] Oct, Marc Mally IMMUNIZATIONS No Information SOCIAL HISTORY Tobacco Use: Social History Observation Description Date Details (start date - stop date) Former Smoker Sex Assigned At : Social History Observation Description Sex Assigned At Unknown Tenriism: Question Answer Notes Tenriism No hoahaoism beliefs that would impact health care., Tobacco Use: Question Answer Notes Are you a: former smoker REASON FOR REFERRAL No Information VITAL SIGNS No information MEDICATIONS Medication SIG (Take, Route, Frequency, Duration) Notes Start Da te End Date Status Oxybutynin Chloride 5 MG 1 tablet Orally Twice a day for 30 Active Calcium + D 600-200 MG-UNIT 1 tablet with food Orally Once a day for 30 day(s) Active Combivent Respimat 20-100 mcg/act 1 puff Inhalation Four times daily Active Fenofibrate 48 MG as directed Orally [...] 30 MINUTES AFTER DINNER for 90 Active Spiriva HandiHaler 18 MCG 1 capsule Inhalation Once a day Active PROCEDURES No Information RESULTS No Results REASON FOR VISIT LMOM she had questions MEDICAL (GENERAL) HISTORY Type Description Date Medical [...] tablet Orally every 12 hrs for 10 day(s) Oct, Next Appt Details Provider Name:Marc Bal, 11-21 02:00:00 PM, [address] [facility], 1st Floor, [place], [address], Provider Name:Luis Manuel Morales, 2020-11-29 03:00:00 PM, [address], [place], [address], Insurance Providers Payer Name Payer Address Payer Phone Insured Name Patient Relati onship to Insured Coverage Start Date Coverage End Date [employer] [facility] CLAIM DIV [address] [facility] [id number] SHAHZAD GEE MEDICARE Part A and B [address] [facility] [phone] SHAHZAD GEE
--- OUTSIDE RECORDS SUMMARY | 2021-01-21 11:30 | CCD ---
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 708678943 ALLERGIES No Known Allergies ENCOUNTERS from 1942 to 2020-11-28 Encounter Location Date Provider Diagnosis [facility] [address] [place] [address] Oct Romina Shah IMMUNIZATIONS No Information SOCIAL HISTORY Tobacco Use: Social History Observation Description Date Details (start date - stop date) Former Smoker Sex Assigned At : Social History Observation Description Sex Assigned At Unknown Baptism: Question Answer Notes Baptism No religion beliefs that would impact health care., Tobacco [...] Information RESULTS No Results REASON FOR VISIT No Information MEDICAL (GENERAL) HISTORY Type Description Date Medical [...] day( s) Next Appt Details Provider Name:Luis Mnauel Lianna Morales, 2020-12-19 01:00:00 PM, [address], [place], [address], Insurance Providers Payer Name Payer Address Payer Phone Insured Name Patient Relati onship to Insured Coverage Start Date Coverage End Date [employer] HE[employer] C[employer] OPTIONS [facility] CLAIM DIV [address] [facility] [id number] SHAHZAD GEE MEDICARE Part A and B [address] [facility] [address] [phone] SHAHZAD GEE
--- OUTSIDE RECORDS SUMMARY | 2021-01-21 11:30 | CCD ---
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 [id number] ALLERGIES No Known Allergies ENCOUNTERS from 1942 to 2020-11-18 Encounter Location Date Provider Diagnosis [facility] [address] [place] [address] Oct Romina Shah Urinary retention R33.9 IMMUNIZATIONS No Information SOCIAL HISTORY Tobacco Use: Social History Observation Description Date Details (start date - stop date) Former Smoker Sex Assigned At : Social History Observation Description Sex Assigned At Unknown Yarsanism: Question Answer Notes Yarsanism No zoroastrian beliefs that would impact health care., Tobacco Use: Question Answer Notes Are you a: former smoker REASON FOR REFERRAL No Information VITAL SIGNS Weight 77 lbs Oct, Height 61 in Oct, BMI 14.55 kg/m2 Oct, Heart Rate 105 /min Oct, Respiratory Rate 22 /min Oct, Temperature 98.9 degrees Fahrenheit Oct, Oximetry 96% on 2 L Oct, Blood pressure systolic 110 mm Hg Oct, Blood pressure diastolic 68 [...] a day Active PROCEDURES from 1942 to 2020-11-18 Procedure Date Ordered Result Body Site Medication: Lidocaine HCl 2% Jelly 5mL Intravesically 2020-11-17 N/A Antony Catheter Insertion 16F 2020-11-17 N/A RESULTS No Results REASON FOR VISIT cath plugged, may teach pt to irrigate cath as noted on tcom from Tracie Shah, LINE MAINTAINER SECTION, urine spec if pt is having sxs or urine is foul odor- see tcom MEDICAL (GENERAL) HISTORY Type Description Date Medical [...] R33.9) PLAN OF TREATMENT Next Appt Details 4 Weeks Reason:catheter change Provider Name:Marc Bal, 11-21 02:00:00 PM, [address], [address], [place], [address], Provider Name:Luis Manuel Morales, 2020-12-19 01:00:00 PM, [address], [place], [address], Follow Up:4 Weekscatheter change Insurance Providers Payer Name Payer Address Payer Phone Insured Name Patient Relati onship to Insured Coverage Start Date Coverage End Date [employer] [facility] CLAIM DIV [address] [facility] [phone] SHAHZAD GEE self MEDICARE Part A and B [address] [facility] [phone] [phone] SHAHZAD GEE self
--- OUTSIDE RECORDS SUMMARY | 2021-01-21 11:31 | CCD ---
Author Author [facility] Organization [facility] Address Unknown Phone Unavailable Care Team Providers Care Culinary Specialist Name Role Phone Benji Guillermo MD Unavailable Unavailable Benji Guillermo MD Unavailable Unavailable Benji Guillermo MD Unavailable Unavailable Benji Guillermo MD Unavailable Unavailable Benji Guillermo MD Unavailable Unavailable Benji Guillermo MD Unavailable Unavailable Benji Guillermo MD Unavailable Unavailable Benji Guillermo MD Unavailable Unavailable Benji Guillermo MD Unavailable Unavailable Benji Guillermo MD Unavailable Unavailable Benji Guillermo MD Unavailable Unavailable Benji Guillermo MD Unavailable Unavailable Benji Guillermo MD Unavailable Unavailable Benji Guillermo MD Unavailable Unavailable Benji Guillermo MD Unavailable Unavailable Benji Guillermo MD Unavailable Unavailable Benji Guillermo MD Unavailable Unavailable Benji Guillermo MD Unavailable Unavailable Benji Guillermo MD Unavailable Unavailable EagleBenji MD Unavailable Unavailable EagleBenji conteh MD Unavailable Unavailable EagleBenji MD Unavailable Unavailable EagleBenji MD Unavailable Unavailable EagleBenji MD Unavailable Unavailable EagleBenji MD Unavailable Unavailable EagleBenji MD Unavailable Unavailable EagleBenji MD Unavailable Unavailable EagleBenji MD Unavailable Unavailable EagleBenji brown MD Unavailable Unavailable EagleBenji MD Unavailable Unavailable EagleBenji MD Unavailable Unavailable EagleBenji MD Unavailable Unavailable EagleBenji MD Unavailable Unavailable EagleBenji MD Unavailable Unavailable EagleBenji MD Unavailable Unavailable EagleBenji MD Unavailable Unavailable EagleBenji conteh MD Unavailable Unavailable EagleBenji MD Unavailable Unavailable Benji Guillermo MD Unavailable Unavailable Benji Guillermo MD Unavailable Unavailable Benji Guillermo MD Unavailable Unavailable EagleBenji conteh MD Unavailable Unavailable Benji Guillermo MD Unavailable Unavailable Benji Guillermo MD Unavailable Unavailable Benji Guillermo MD Unavailable Unavailable Benji Guillermo MD Unavailable Unavailable Benji Guillermo MD Unavailable Unavailable Benji Guillermo MD Unavailable Unavailable Benji Guillermo MD Unavailable Unavailable Benji Guillermo MD Unavailable Unavailable Benji Guillermo MD Unavailable Unavailable Benji Guillermo MD Unavailable Unavailable Benji Guillermo MD Unavailable Unavailable Benji Guillermo MD Unavailable Unavailable Benji Guillermo MD Unavailable Unavailable Benji Guillermo MD Unavailable Unavailable Benji Guillermo MD Unavailable Unavailable Benji Guillermo MD Unavailable Unavailable Benji Guillermo MD Unavailable Unavailable Benji Guillermo MD Unavailable Unavailable Benji Guillermo MD Unavailable Unavailable Benji Guillermo MD Unavailable Unavailable Benji Guillermo MD Unavailable Unavailable Benji Guillermo MD Unavailable Unavailable Benji Guillermo MD Unavailable Unavailable Benji Guillermo MD Unavailable Unavailable Benji Guillermo MD Unavailable Unavailable Benji Guillermo MD Unavailable Unavailable Benji Guillermo MD Unavailable Unavailable EagleBenji MD Unavailable Unavailable Eagle, Benji Unger MD Unavailable Unavailable Eagle, Benji Unger MD Unavailable Unavailable Eagle, Benji Unger MD Unavailable Unavailable Eagle, Benji Unger MD Unavailable Unavailable Eagle, Benji Unger MD Unavailable Unavailable Eagle, Benji Unger MD Unavailable Unavailable Eagle, Benji Unger MD Unavailable Unavailable Eagle, Benji Ute ROY Unavailable Unavailable Re-disclosure Warning The records that you are about to access may contain information from federally-assisted alcohol or drug abuse programs. If such information is present, then the following federally mandated warning applies: This information has been disclosed to you from records protected by federal confidentiality rules (42 CFR part 2). The federal rules prohibit you from making any further disclosure of this information unless further disclosure is expressly permitted by the written consent of the person to whom it pertains or as otherwise permitted by 42 CFR part 2. A general authorization for the release of medical or other information is NOT sufficient for this purpose. The Federal rules restrict any use of the information to criminally investigate or prosecute any alcohol or drug abuse patient.The records that you are about to access may contain highly sensitive health information, the redisclosure of which is protected by Article 27-F of the [facility] Public Health law. If you continue you may have access to information: Regarding HIV / AIDS; Provided by facilities licensed or operated by the [facility] Office of Mental Health; or Provided by the [facility] Office for People With Developmental Disabilities. If such information is present, then the following [facility] mandated warning applies: This information has been disclosed to you from confidential records which are protected by state law. State law prohibits you from making any further disclosure of this information without the specific written consent of the person to whom it pertains, or as otherwise permitted by law. Any unauthorized further disclosure in violation of state law may result in a fine or [place] health care facility sentence or both. A general authorization for the release of medical or other information is NOT sufficient authorization for further disc losure. Family History Family Member Name Family Member Gender Family Member Status Date o f Status Description Data Source(s) Unknown Male Problem MEDENT ([facility], ) () Unknown Female Problem MEDENT ([facility]) Recently diagnosed Encounters Encounter Providers Location Date Indications Data Source(s ) (Cyst[facility]) Urology [address] [place] [address] 01/15/2021 12:00:00 AM EST eCW1 ([facility]) [place] [address] [facility] [address] 01/09/2021 12:00:00 AM EST eCW1 ([facility]) [place] [address] [facility] [address] 01/04/2021 12:00:00 AM EST eCW1 ([facility]) [place] [address] [facility] [address] 01/03/2021 12:00:00 AM EST eCW1 ([facility]) [place]patient [address] [facility] [address] 12/27/2020 12:00:00 AM EST eCW1 ([facility]) [place] [address] [facility] [address] 12/19/2020 12:00:00 AM EST eCW1 ([facility]) Unknown [address] [facility] [address] 12/18/2020 12:00:00 AM EST eCW1 ([facility]) Postop visit [address] [facility] [address] 12/06/2020 12:00:00 AM EST eCW1 ([facility]) [place] [address] [facility] [address] 11/28/2020 12:00:00 AM EST eCW1 ([facility]) Unknown [address] [facility] [address] 11/28/2020 12:00:00 AM EST eCW1 ([facility]) Unknown [address] [facility] [address] 11/28/2020 12:00:00 AM EST eCW1 ([facility]) Unknown [address] [facility] [address] 11/28/2020 12:00:00 AM EST eCW1 ([facility]) [place] [address] [facility] [address] 11/21/2020 12:00:00 AM EST eCW1 ([facility]) [place]patient [address] [facility] [address] 11/17/2020 12:00:00 AM EST eCW1 ([facility]) Unknown [address] [facility] [place] [address] 11/17/2020 12:00:00 AM EST eCW1 ([facility]) Outpatient [address] [facility] [place] [address] 11/14/2020 12:00:00 AM EST eCW1 ([facility]) Unknown [address] [facility] [place] [address] 11/10/2020 12:00:00 AM EST eCW1 ([facility]) Unknown [address] [facility] [place] [address] 10/30/2020 12:00:00 AM EST eCW1 ([facility]) Outpatient Attender: Ute Roche 09:30:00 AM EST MEDENT ([facility] ) Outpatient [address] [facility] [place] [address] 10/04/2020 12:00:00 AM EST eCW1 ([facility]) Unknown [address] [facility] [place] [address] 10/04/2020 12:00:00 AM EST eCW1 ([facility]) Unknown [address] [facility] [place] [address] 09/28/2020 12:00:00 AM EDT eCW1 ([facility]) Unknown [address] [facility] [place] [address] 09/26/2020 12:00:00 AM EDT eCW1 ([facility]) Unknown [address] [facility] [place] [address] 09/08/2020 12:00:00 AM EDT eCW1 ([facility]) [place] [address] [facility] [address] 09/06/2020 12:00:00 AM EDT eCW1 ([facility]) Unknown [address] [facility] [address] 09/06/2020 12:00:00 AM EDT eCW1 ([facility]) Outpatient Attender: Ute Roche 10:15:00 AM EDT MEDENT ([facility] ) Immunizations Vaccine Date Status Description Data Source(s) Influenza, injectable, MDCK, preservative free, larry valent 10/19/2020 09:26:00 AM EST completed [facility] influenza, recombinant, quadrIvalent,injectable, prese rvative free 10/02/2020 01:57:00 PM EST completed eCW1 ([facility]) influenza, recombinant, quadrIvalent,injectable, prese rvative free 10/02/2020 01:57:00 PM EST completed eCW1 ([facility]) influenza, recombinant, quadrIvalent,injectable, prese rvative free 10/02/2020 01:57:00 PM EST completed eCW1 ([facility]) influenza, recombinant, quadrIvalent,injectable, prese rvative free 10/02/2020 01:57:00 PM EST completed eCW1 ([facility]) influenza, recombinant, quadrIvalent,injectable, prese rvative free 10/02/2020 01:57:00 PM EST completed eCW1 ([facility]) influenza, recombinant, quadrIvalent,injectable, prese rvative free 10/02/2020 01:57:00 PM EST completed eCW1 ([facility]) influenza, recombinant, quadrIvalent,injectable, prese rvative free 10/02/2020 01:57:00 PM EST completed eCW1 ([facility]) influenza, recombinant, quadrIvalent,injectable, prese rvative free 10/02/2020 01:57:00 PM EST completed eCW1 ([facility]) Medications Medication Brand Name Start Date Product Form Dose Route Admi nistrative Instructions Pharmacy Instructions Status Indications Reaction Description Data Source(s) Cephalexin 500 MG Oral Capsule Cephalexin 500 MG 01/09/2021 12:00:00 AM EST active Cephalexin 500 MG eC W1 ([facility]) Cephalexin 500 MG Oral Capsule Cephalexin 500 MG 01/09/2021 12:00:00 AM EST active Cephalexin 500 MG eC W1 ([facility]) Ciprofloxacin 500 MG Oral Tablet Ciprofloxacin HCl 500 MG Ciprofloxacin HCl 500 MG 12/06/2020 12:00:00 AM EST 1.0 {tablet} activ e Ciprofloxacin HCl 500 MG eCW1 ([facility]) Ciprofloxacin 500 MG Oral Tablet Ciprofloxacin HCl 500 MG Ciprofloxacin HCl 500 MG 12/06/2020 12:00:00 AM EST 1.0 {tablet} activ e Ciprofloxacin HCl 500 MG eCW1 ([facility]) Ciprofloxacin 500 MG Oral Tablet Ciprofloxacin HCl 500 MG Ciprofloxacin HCl 500 MG 12/06/2020 12:00:00 AM EST 1.0 {tablet} activ e Ciprofloxacin HCl 500 MG eCW1 ([facility]) Ciprofloxacin 500 MG Oral Tablet Ciprofloxacin HCl 500 MG Ciprofloxacin HCl 500 MG 12/06/2020 12:00:00 AM EST 1.0 {tablet} activ e Ciprofloxacin HCl 500 MG eCW1 ([facility]) Ciprofloxacin 500 MG Oral Tablet Ciprofloxacin HCl 500 MG Ciprofloxacin HCl 500 MG 12/06/2020 12:00:00 AM EST 1.0 {tablet} activ e Ciprofloxacin HCl 500 MG eCW1 ([facility]) Ciprofloxacin 500 MG Oral Tablet Ciprofloxacin HCl 500 MG Ciprofloxacin HCl 500 MG 12/06/2020 12:00:00 AM EST 1.0 {tablet} activ e Ciprofloxacin HCl 500 MG eCW1 ([facility]) Ciprofloxacin 500 MG Oral Tablet Ciprofloxacin HCl 500 MG Ciprofloxacin HCl 500 MG 12/06/2020 12:00:00 AM EST 1.0 {tablet} activ e Ciprofloxacin HCl 500 MG eCW1 ([facility]) Ciprofloxacin 500 MG Oral Tablet Ciprofloxacin HCl 500 MG Ciprofloxacin HCl 500 MG 12/06/2020 12:00:00 AM EST 1.0 {tablet} activ e Ciprofloxacin HCl 500 MG eCW1 ([facility]) Ciprofloxacin 500 MG Oral Tablet Ciprofloxacin HCl 500 MG Ciprofloxacin HCl 500 MG 12/06/2020 12:00:00 AM EST 1.0 {tablet} activ e Ciprofloxacin HCl 500 MG eCW1 ([facility]) Ciprofloxacin 500 MG Oral Tablet Ciprofloxacin HCl 500 MG Ciprofloxacin HCl 500 MG 11/14/2020 12:00:00 AM EST 1.0 {tablet} activ e Ciprofloxacin HCl 500 MG eCW1 ([facility]) Ciprofloxacin 500 MG Oral Tablet Ciprofloxacin HCl 500 MG Ciprofloxacin HCl 500 MG 11/14/2020 12:00:00 AM EST 1.0 {tablet} activ e Ciprofloxacin HCl 500 MG eCW1 ([facility]) Ciprofloxacin 500 MG Oral Tablet Ciprofloxacin HCl 500 MG Ciprofloxacin HCl 500 MG 11/14/2020 12:00:00 AM EST 1.0 {tablet} activ e Ciprofloxacin HCl 500 MG eCW1 ([facility]) Ciprofloxacin 500 MG Oral Tablet Ciprofloxacin HCl 500 MG Ciprofloxacin HCl 500 MG 11/14/2020 12:00:00 AM EST 1.0 {tablet} activ e Ciprofloxacin HCl 500 MG eCW1 ([facility]) Ciprofloxacin 500 MG Oral Tablet Ciprofloxacin HCl 500 MG Ciprofloxacin HCl 500 MG 11/14/2020 12:00:00 AM EST 1.0 {tablet} activ e Ciprofloxacin HCl 500 MG eCW1 ([facility]) Ciprofloxacin 500 MG Oral Tablet Ciprofloxacin HCl 500 MG Ciprofloxacin HCl 500 MG 11/14/2020 12:00:00 AM EST 1.0 {tablet} activ e Ciprofloxacin HCl 500 MG eCW1 ([facility]) Ciprofloxacin 500 MG Oral Tablet Ciprofloxacin HCl 500 MG Ciprofloxacin HCl 500 MG 11/14/2020 12:00:00 AM EST 1.0 {tablet} activ e Ciprofloxacin HCl 500 MG eCW1 ([facility]) Ciprofloxacin 500 MG Oral Tablet Ciprofloxacin HCl 500 MG Ciprofloxacin HCl 500 MG 11/14/2020 12:00:00 AM EST 1.0 {tablet} activ e Ciprofloxacin HCl 500 MG eCW1 ([facility]) Ciprofloxacin 500 MG Oral Tablet Ciprofloxacin HCl 500 MG Ciprofloxacin HCl 500 MG 11/14/2020 12:00:00 AM EST 1.0 {tablet} activ e Ciprofloxacin HCl 500 MG eCW1 ([facility]) Ciprofloxacin 500 MG Oral Tablet Ciprofloxacin HCl 500 MG Ciprofloxacin HCl 500 MG 11/14/2020 12:00:00 AM EST 1.0 {tablet} activ e Ciprofloxacin HCl 500 MG eCW1 ([facility]) Ciprofloxacin 500 MG Oral Tablet Ciprofloxacin HCl 500 MG Ciprofloxacin HCl 500 MG 11/14/2020 12:00:00 AM EST 1.0 {tablet} activ e Ciprofloxacin HCl 500 MG eCW1 ([facility]) Ciprofloxacin 500 MG Oral Tablet Ciprofloxacin HCl 500 MG Ciprofloxacin HCl 500 MG 11/14/2020 12:00:00 AM EST 1.0 {tablet} activ e Ciprofloxacin HCl 500 MG eCW1 ([facility]) Ciprofloxacin 500 MG Oral Tablet Ciprofloxacin HCl 500 MG Ciprofloxacin HCl 500 MG 11/14/2020 12:00:00 AM EST 1.0 {tablet} activ e Ciprofloxacin HCl 500 MG eCW1 ([facility]) Ciprofloxacin 500 MG Oral Tablet Ciprofloxacin HCl 500 MG Ciprofloxacin HCl 500 MG 11/14/2020 12:00:00 AM EST 1.0 {tablet} activ e Ciprofloxacin HCl 500 MG eCW1 ([facility]) Ciprofloxacin 500 MG Oral Tablet Ciprofloxacin HCl 500 MG Ciprofloxacin HCl 500 MG 11/14/2020 12:00:00 AM EST 1.0 {tablet} activ e Ciprofloxacin HCl 500 MG eCW1 ([facility]) Ciprofloxacin 500 MG Oral Tablet Ciprofloxacin HCl 500 MG Ciprofloxacin HCl 500 MG 11/14/2020 12:00:00 AM EST 1.0 {tablet} activ e Ciprofloxacin HCl 500 MG eCW1 ([facility]) Ciprofloxacin 500 MG Oral Tablet Ciprofloxacin HCl 500 MG Ciprofloxacin HCl 500 MG 11/14/2020 12:00:00 AM EST 1.0 {tablet} activ e Ciprofloxacin HCl 500 MG eCW1 ([facility]) Ciprofloxacin 500 MG Oral Tablet Ciprofloxacin HCl 500 MG Ciprofloxacin HCl 500 MG 11/14/2020 12:00:00 AM EST 1.0 {tablet} activ e Ciprofloxacin HCl 500 MG eCW1 ([facility]) Ciprofloxacin 500 MG Oral Tablet Ciprofloxacin HCl 500 MG Ciprofloxacin HCl 500 MG 11/14/2020 12:00:00 AM EST 1.0 {tablet} activ e Ciprofloxacin HCl 500 MG eCW1 ([facility]) Alendronic acid 70 MG Oral Tablet Alendronate Sodium 10/19/2020 12:00:00 AM EST active MEDENT ( [facility]) Calcium Carbonate 1500 MG / Cholecalciferol 200 UNT Oral Tab let Calcium 600 + D 10/19/2020 12:00:00 AM EST ORAL active MEDENT ([facility]) Administration Of Flu Vaccine 10/19/2020 12:00:00 AM EST completed [facility]) Medication administered onsite Oxybutynin chloride 5 MG Oral Tablet Oxybutynin Chlori de 5 MG Oxybutynin Chloride 5 MG 09/08/2020 12:00:00 AM EDT 1.0 {tablet} active Oxybutynin Chloride 5 MG eCW1 ([facility]) Oxybutynin chloride 5 MG Oral Tablet Oxybutynin Chlori de 5 MG Oxybutynin Chloride 5 MG 09/08/2020 12:00:00 AM EDT 1.0 {tablet} active Oxybutynin Chloride 5 MG eCW1 ([facility]) Oxybutynin chloride 5 MG Oral Tablet Oxybutynin Chlori de 5 MG Oxybutynin Chloride 5 MG 09/08/2020 12:00:00 AM EDT 1.0 {tablet} active Oxybutynin Chloride 5 MG eCW1 ([facility]) Oxybutynin chloride 5 MG Oral Tablet Oxybutynin Chlori de 5 MG Oxybutynin Chloride 5 MG 09/08/2020 12:00:00 AM EDT 1.0 {tablet} active Oxybutynin Chloride 5 MG eCW1 ([facility]) Insurance Providers Payer name Policy type / Coverage type Policy ID Covered republican ID Covered republican's relationship to bales Policy Bales Plan Information [facility] OPTIONS [id number] SP [id number] MEDICARE [id number] SP [id number] AAR O [id number] S [id number] MEDICARE C [id number] S [id number] MEDICARE [id number] SP [id number] [facility] OPTIONS [id number] SP [id number] [facility] Healthcare Opt Medigap Part B [id number] 12 Self [id number] 12 Medicare [place] Govt Servic Medicare Primary [id number] Self [id number] United Hcare/Multiplan Medigap Part B [id number] Self [id number] [facility] Opt Medigap Part B [id number] 12 Self [id number] 12 Medicare [place] Govt Servic Medicare Primary [id number] Self [id number] [facility] Opt Medigap Part B [id number] 12 Self [id number] 12 Medicare [place] Govt [employer] Medicare Primary [id number] Self [id number] [facility] Medigap Part B [id number] Self [id number] Medicare [facility] Medicare Primary [id number] Self [id number] [facility] Opt Medigap Part B [id number] 12 Self [id number] 12 Medicare [place] Govt Servic Medicare Primary [id number] Self [id number] [facility] Medigap Part B [id number] Self [id number] Medicare [facility] Medicare Primary [id number] Self [id number] MEDICARE [id number] SP [id number] [facility] Opt Medigap Part B [id number] 12 Self [id number] 12 Medicare [place] [employer] [employer] Medicare Primary [id number] Self [id number] [employer] C[employer] OPTIONS [id number] SP [id number] [facility] [id number] SP [id number] United Hcare/Multiplan Medigap Part B Self [facility] Opt Medigap Part B Self Medicare [place] Govt Servic Medicare Primary Self AARP HE[employer] CARE OPTIONS UNAVAILABLE UNAVAILABLE AARP HE[employer] CARE OPTIONS [id number] SP [id number] AARP S UNAVAILABLE S UNAVAILA BLE MEDICARE P UNAVAILABLE S UNAVAILA BLE [id number] Problems, Conditions, and Diagnoses Code Display Name Description Problem Type Effective Dates Data Source(s) N21.0 Bladder stone Bladder stone Problem 01/15/2021 12:00:00 AM EST eCW1 ([facility]) R33.9 Urinary retention Urinary retention Problem 12/27/2020 12:00:00 AM EST eCW1 ([facility]) C44.729 [id number] Squamous cell carcinoma of left lower leg Problem 11/14/2020 12:00:00 AM EST eCW1 ([facility]) N32.89 Bladder spasm Bladder spasm Problem 09/08/2020 12:00:00 AM EDT eCW1 ([facility]) Surgeries/Procedures Procedure Description Date Indications Data Source(s) Medication: Lidocaine HCl 2% Jelly 5mL Intravesically 01/15/2021 12:00:00 AM EST eCW1 ([facility]) Medication: Lidocaine HCl 2% Jelly 5mL Intravesically 01/09/2021 12:00:00 AM EST eCW1 ([facility]) Medication: Lidocaine HCl 2% Jelly 5mL Intravesically 01/04/2021 12:00:00 AM EST eCW1 ([facility]) Antony Catheter Insertion 16F 01/03/2021 12:00:00 AM ES T eCW1 ([facility]) Medication: Lidocaine HCl 2% Jelly 5mL Intravesically 12/27/2020 12:00:00 AM EST eCW1 ([facility]) Antony Catheter Insertion 16F 12/19/2020 12:00:00 AM ES T eCW1 ([facility]) Suture Removal 11/28/2020 12:00:00 AM EST eCW1 ([facility]) Suture Removal 11/21/2020 12:00:00 AM EST eCW1 ([facility]) Antony Catheter Insertion 16F 11/17/2020 12:00:00 AM ES T eCW1 ([facility]) ECG ROUTINE ECG W/LEAST 12 LDS W/I&R 10/19/2020 12:00: 00 AM EST MEDENT ([facility]) Antony Catheter Insertion 16F 10/04/2020 12:00:00 AM ES T eCW1 ([facility]) Antony Catheter Insertion 16F 09/06/2020 12:00:00 AM ED T eCW1 ([facility]) Results ID Date Data Source [id number] 10/29/2020 03:07:00 PM EST MEDENT ([facility]) Name Value Range Interpretation Code Description Data Jaqueline rce(s) Supporting Document(s) Glucose, Fasting 96 mg/dL 70-100 MEDENT ([facility]) Glomerular Filtration Rate Laboratory test result MEDENT ([facility]) <content>Units are mL/min/1.73 m2</content>
<content></content>
<content>Chronic Kidney Disease Staging per NKF:</content>
<content></content>
<content>Stage I & II GFR >=60 Normal to Mildly Decreased</content>
<content>Stage III GFR 30-59 Moderately Decreased</content>
<content>Stage IV GFR 15-29 Severely Decreased</content>
<content>Stage V GFR <15 Very Little GFR Left</content>
<content>ESRD GFR <15 on SENIOR COST ESTIMATOR</content>
<content></content> Creatinine For GFR 0.52 mg/dL 0.55-1.30 MEDENT ([facility]) Blood Urea Nitrogen 17 mg/dL 7-18 MEDENT ([facility]) Sodium Level 136 meq/L 136-145 MEDENT ([facility]) Potassium Serum 4.3 meq/L 3.5-5.1 MEDENT ([facility]) Chloride Level 99 meq/L 98-107 MEDENT ([facility]) Calcium Level 9.1 mg/dL 8.8-10.2 MEDENT ([facility]) Anion Gap 5 meq/L 8-16 [facility] Carbon Dioxide Level 32 meq/L 21-32 MEDENT ([facility]) ID Date Data Source [id number] 10/29/2020 03:07:00 PM EST MEDENT ([facility]) Name Value Range Interpretation Code Description Data Jaqueline rce(s) Supporting Document(s) Hemoglobin 11.2 g/dL 12.0-15.5 [facility] Red Blood Count 3.85 10 4.00-5.40 MEDENT ([facility]) White Blood Count 6.6 10 4.0-10.0 MEDENT ([facility]) Hematocrit 36.0 % 36.0-47.0 [facility] Mean Corpuscular Volume 93.5 fl 80.0-96.0 MEDENT ([facility]) Mean Corpuscular Hemoglobin 29.1 pg 27.0-33.0 ME DENT ([facility]) Platelet Count, Automated 278 10 150-450 MEDE NT ([facility]) Mean Corpuscular HGB Conc 31.1 g/dL 32.0-36.5 MEDE NT ([facility]) Red Cell Distribution Width 11.9 % 11.5-14.5 ME DENT ([facility]) Neutrophils % 71.3 % 36.0-66.0 MEDENT ([facility]) Borden % 5.9 % 0.0-5.0 [facility] Lymph % 18.3 % 24.0-44.0 [facility] Eos % 3.6 % 0.0-3.0 [facility]) Baso % 0.6 % 0.0-1.0 [facility]) Immature Granulocyte % 0.3 % 0-3.0 MEDENT ([facility]) Nucleated Red Blood Cell % 0.0 % 0-0 MED ENT ([facility]) Neutrophils # 4.7 10 1.5-8.5 MEDENT ([facility]) Lymph # 1.2 10 1.5-5.0 [facility] [place] # 0.4 10 0.0-0.8 [facility] Eos # 0.2 10 0.0-0.5 [facility] Baso # 0.0 10 0.0-0.2 [facility] ID Date Data Source [id number] 10/29/2020 02:36:00 PM EST [facility] ([facility]) Name Value Range Interpretation Code Description Data Jaqueline rce(s) Supporting Document(s) Reflex Urine Culture Laboratory test result [facility] ([facility]) <content>FULL REPORT IN LAB NOTES ([facility] a nd [facility]).</content>
<content></content>
<content>ORGANISM 1: ESCHERICHIA COLI</content>
<content></content>
<content>COLONY COUNT >100,000</content>
<content></content>
<content>ORGANISM 2: STREP AGALACTIAE GROUP B</content>
<content></content>
<content>COLONY COUNT >100,000</content>
<content></content>
<content></content>
<content>ORGANISM 1: ESCHERICHIA COLI</content>
<content>ORGANISM 2: STREP AGALACTIAE GROUP B</content>
<content></content>
<content>ESCHERICHIA COLI: REACTION</content>
<content>TRIMETHOPRIM/SULFAMETHOXAZOLE IV 160mg TMP & 800mg SMXq6h <=20 S</content>
<content> TRIMETHOPRIM/SULFAMETHOXAZOLE PO Bactrim DS Bid <=20 S</content>
<content>AMPICILLIN IV 500mg q6h 16 I</content>
<content>AMPICILLIN PO 500mg q6h fasting 16 I</content>
<content>GENTAMICIN IV 80mg q8h <=1 S</content>
<content>NITROFURANTOIN PO 100mg BID <=16 S</content>
<content>CEFAZOLIN IV 1gm q8h <=4 S</content>
<content> LEVOFLOXACIN IV 500mg qd <=0.12 S</content>
<content>LEVOFLOXACIN PO 250mg qd <=0.12 S</content>
<content>LEVOFLOXACIN PO 500mg qd <=0.12 S</content>
<content>TOBRAMYCIN IV 80mg q8h <=1 S</content>
<content>CEFTRIAXONE IV 1gm q24h <=1 S</content>
<content>CEFTAZIDIME IV 1gm q8h <=1 S</content>
<content> AMPICILLIN/SULBACTAM IV 1.5g q6h 4 S</content>
<content>PIPERACILLIN/TAZOBACTAM IV 2.25 gm q6h <=4 S</content>
<content>AZTREONAM IV 1gm q8h >=64 R</content>
<content>ERTAPENEM IV 1gm qd <=0.5 S</content>
<content>MEROPENEM IV 1 gm q8h <=0.25 S</content>
<content>MEROPENEM IV 500 mg q8h <=0.25 S</content>
<content> TIGECYCLINE IV 50mg q12h <=0.5 S</content>
<content>CEFEPIME IV 1 gm q12h <=1 S</content>
<content>CEFEPIME IV 2 gm q12h <=1 S</content>
<content>EXTD BRD SPCTRM BETA LACTAMASE IV NEGATIVE FOR ESBL</content>
<content></content>
<content> STREP AGALACTIAE GROUP B: REACTION</content>
<content>ICR (INDUCIBLE CC RESISTANCE) IV ICR TEST RESULT</content>
<content>TETRACYCLINE PO 250 mg qid >=16 R</content>
<content>PENICILLIN G IV 1 mu q6H 0.12 S</content>
<content>PENICILLIN G IV 1 mu q6h 0.12 S</content>
<content>PENICILLIN G PO 250mg q6h fasting 0.12 S</content>
<content>AMPICILLIN IV 500mg q6h <=0.25 S</content>
<content>AMPICILLIN PO 500mg q6h fasting <=0.25 S</content>
<content>ERYTHROMYCIN IV 500mg q6h >=8 R</content>
<content>ERYTHROMYCIN PO 500mg q6h >=8 R</content>
<content>LEVOFLOXACIN IV 500mg qd 1 S</content>
<content>LEVOFLOXACIN PO 250mg qd 1 S</content>
<content>LEVOFLOXACIN PO 500mg qd 1 S</content>
<content>VANCOMYCIN IV 500mg q8h 0.5 S</content>
<content>MOXIFLOXACIN (AVELOX) IV 400MG QD 0.12 S</content>
<content>MOXIFLOXACIN (AVELOX) PO 400MG QD 0.12 S</content>
<content>CEFTRIAXONE IV 1gm q24h <=0.12 S</content>
<content>CEFOTAXIME IV 1gm q8h <=0.12 S</content>
<content>An isolate with a (+) POSITIVE ICR test is considered</content>
<content>CLINDAMYCIN RESISTANT; however, clindamycin may still</content>
<content>be effective in some patients.</content>
<content>An isolate with a (-) NEGATIVE ICR test is considered</content>
<content>CLIDAMYCIN SENSITIVE.</content>
<content></content> ID Date Data Source [id number] 10/29/2020 02:36:00 PM EST [facility]) Name Value Range Interpretation Code Description Data Jaqueline rce(s) Supporting Document(s) Appearance, Urine RFX Laboratory test result [facility] ([facility]) PH,Urine RFX 6.0 units 5.0-9.0 [facility] Specific [place] Ur Auto RFX 1.016 1.002-1.035 [facility] ([facility]) Color, Urine RFX Laboratory test result [facility] Glucose, Urine (Ua) Auto RFX Laboratory test result [facility] Ketone, Urine Auto RFX Laboratory test result [facility] Protein, Urine Auto RFX Laboratory test result [facility] ([facility]) Nitrite, Urine Auto RFX Laboratory test result [facility] ([facility]) Bilirubin, Urine Auto RFX Laboratory test result [facility] Urobilinogen, Urine Auto RFX 0.2 mg/dL 0.0-2.0 [facility] Leukocyte Esterase Ur Auto RFX Laboratory test result [facility] WBC, Urine Auto RFX Laboratory test result 0-3 [facility] ([facility]) Blood, Urine Blood RFX Laboratory test result [facility] RBC, Urine Auto RFX Laboratory test result 0-3 [facility] ([facility]) Bacteria, Urine Auto RFX Laboratory test result [facility] Hyaline Cast, Urine Auto RFX 0 /LPF 0-1 M EDENT ([facility] Squam Epithelial Cell Ur Aurfx 1 /HPF 0-6 [facility] ID Date Data Source [id number] 10/19/2020 11:23:00 AM EST [facility] Name Value Range Interpretation Code Description Data Jaqueline rce(s) Supporting Document(s) Calcidiol [Mass/volume] in Serum or Plasma 41.1 24.0-80.0 [facility] This test was performed using Fast[employer] I P Vitamin D immunoassay kit. Values obtained with different assay methods should not be used interchangeably. ID Date Data Source [id number] 10/19/2020 11:23:00 AM EST [facility] Name Value Range Interpretation Code Description Data Jaqueline rce(s) Supporting Document(s) Glucose [Mass/volume] in Serum or Plasma 96 mg/dL 74-99 [facility] ([facility]) 100-125 mg/dL PRE-DIABETES/FASTING >126 mg/dL DIABETES/FASTING Urea nitrogen [Mass/volume] in Serum or Plasma 20 mg/dL 7-18 [facility] Creatinine 0.6 mg/dL 0.6-1.3 [facility] Potassium [Moles/volume] in Serum or Plasma 4.1 meq/L 3.5-5.1 [facility] Sodium [Moles/volume] in Serum or Plasma 139 meq/L 136-145 [facility] ([facility]) Chloride [Moles/volume] in Serum or Plasma 100 meq/L 98-107 [facility] Carbon dioxide, total [Moles/volume] in Serum or Plasma 36 meq/L 21 -32 [facility] Glomerular filtration rate/1.73 sq M pre dicted among blacks [Volume Rate/Area] in Serum or Plasma by Creatinine-based formula (MDRD) Laboratory test result [facility] ([facility]) <content>CHRONIC KIDNEY DISEASE STAGING PER NKF</content>
<content></content>
<content>STAGE I & II GFR >= 60 NORMAL TO MILDLY DECREASED</content>
<content>STAGE III GFR 30-59 MODERATELY DECREASED</content>
<content>STAGE IV GFR 15-29 SEVERELY DECREASED</content>
<content>STAGE V GFR <15 VERY LITTLE GFR LEFT</content>
<content>ESRD GFR <15 ON SENIOR COST ESTIMATOR</content>
<content></content> Glomerular filtration rate/1.73 sq M pre dicted among non-blacks [Volume Rate/Area] in Serum or Plasma by Creatinine-based formula (MDRD) [facility] ) Calcium [Mass/volume] in Serum or Plasma 9.7 mg/dL 8.5-10.1 [facility] ([facility]) ID Date Data Source [id number] 10/19/2020 11:23:00 AM EST [facility] Name Value Range Interpretation Code Description Data Jaqueline rce(s) Supporting Document(s) Leukocytes [#/volume] in Blood by Automated count 6.0 x10*3/UL 4.1-10 .9 [facility] NOTE: CBC VERIFIED Hemoglobin [Mass/volume] in Blood 11.2 g/dL 12.0-18.0 [facility] Erythrocytes [#/volume] in Blood by Automated count 3.83 x10*6/UL 4.2 0-6.30 [facility] ([facility]) MCH 29.3 pg 26.0-32.0 [facility] ([facility]) MCV 87.1 fL 80.0-97.0 [facility] ([facility]) Hematocrit [Volume Fraction] of Blood by Automated count 33.3 % 3 7.0-51.0 [facility] MCHC 33.6 g/dL 31.0-38.0 [facility] ([facility]) Platelets [#/volume] in Blood by Automated count 273 x10*3/UL 140-440 [facility] Erythrocyte distribution width [Ratio] by Automated count 12.4 % 11.6-13.7 [facility] Lymph % 22.4 % 10.0-58.5 [facility] ([facility]) Mid % 5.7 % 1.7-9.3 [facility] ([facility]) MPV 8.4 FL 7.8-11.0 [facility] ([facility]) Neut % 71.9 % 37.0-92.0 [facility] ([facility]) Mid # 0.4 x10*3/UL 0.1-0.6 [facility] ([facility]) Lymph # 1.3 x10*3/UL 0.6-4.1 [facility] ([facility]) Neut # 4.3 x10*3/UL 2.0-7.8 [facility] ([facility]) ID Date Data Source [id number] 08/15/2020 02:49:00 PM EDT [facility] ([facility] Name Value Range Interpretation Code Description Data Jaqueline rce(s) Supporting Document(s) Laboratory test finding (navigational concept) 38.0 % 38.0-51.0 [facility] ([facility]) Laboratory test finding (navigational concept) 3.9 meq/L 3.5-5.1 [facility] ([facility]) Laboratory test finding (navigational concept) 137 meq/L 136-145 [facility] ([facility]) Laboratory test finding (navigational concept) 93 mg/dL 70-105 [facility] ([facility]) Laboratory test finding (navigational concept) 28.0 MM/L 23.0-27.0 [facility] ([facility]) Laboratory test finding (navigational concept) 94 meq/L 98-109 [facility] ([facility]) Laboratory test finding (navigational concept) 5.0 mg/dL 4.5-5.3 [facility] ([facility]) Laboratory test finding (navigational concept) 19 mg/dL 8-26 [facility] ([facility]) Laboratory test finding (navigational concept) 0.6 mg/dL 0.6-1.3 [facility] ([facility]) ID Date Data Source [id number] 08/15/2020 02:44:00 PM EDT [facility] ([facility]) Name Value Range Interpretation Code Description Data Jaqueline rce(s) Supporting Document(s) White Blood Count 9.9 10 4.0-10.0 [facility] ([facility]) Hematocrit 39.1 % 36.0-47.0 [facility] ([facility]) Red Blood Count 4.18 10 4.00-5.40 [facility] ([facility]) Hemoglobin 12.3 g/dL 12.0-15.5 [facility] ([facility]) Mean Corpuscular Hemoglobin 29.4 pg 27.0-33.0 AR DENT ([facility]) Mean Corpuscular Volume 93.5 fl 80.0-96.0 [facility] ([facility]) Neutrophils % 84.2 % 36.0-66.0 [facility] ([facility]) Mean Corpuscular HGB Conc 31.5 g/dL 32.0-36.5 MEDE NT ([facility]) Red Cell Distribution Width 12.0 % 11.5-14.5 [facility] ([facility]) Platelet Count, Automated 301 10 150-450 MED[facility] NT ([facility]) Lymph % 9.9 % 24.0-44.0 [facility]) [place] % 4.7 % 0.0-5.0 [facility] Eos % 0.7 % 0.0-3.0 [facility] Nucleated Red Blood Cell % 0.0 % 0-0 MED ENT ([facility]) Immature Granulocyte % 0.3 % 0-3.0 [facility] ([facility]) Baso % 0.2 % 0.0-1.0 [facility]) Neutrophils # 8.3 10 1.5-8.5 [facility] ([facility]) Lymph # 1.0 10 1.5-5.0 [facility] Eos # 0.1 10 0.0-0.5 [facility] Baso # 0.0 10 0.0-0.2 [facility]) [place] # 0.5 10 0.0-0.8 [facility] ID Date Data Source [id number] 08/15/2020 02:41:00 PM EDT [facility] ([facility]) Name Value Range Interpretation Code Description Data Jaqueline rce(s) Supporting Document(s) Appearance, Urine RFX Laboratory test result [facility] ([facility]) PH,Urine RFX 6.0 units 5.0-9.0 [facility] ([facility]) Specific [place] Ur Auto RFX 1.015 1.002-1.035 [facility] Color, Urine RFX Laboratory test result [facility] ([facility]) Ketone, Urine Auto RFX Laboratory test result [facility] ([facility]) Protein, Urine Auto RFX Laboratory test result [facility] ([facility]) Glucose, Urine (Ua) Auto RFX Laboratory test result [facility] ([facility]) Nitrite, Urine Auto RFX Laboratory test result [facility] ([facility]) Urobilinogen, Urine Auto RFX 0.2 mg/dL 0.0-2.0 [facility] ([facility]) Bilirubin, Urine Auto RFX Laboratory test result [facility] ([facility]) Blood, Urine Blood RFX Laboratory test result [facility] ([facility]) WBC, Urine Auto RFX 2 /HPF 0-3 [facility] ([facility] Leukocyte Esterase Ur Auto RFX Laboratory test result [facility] RBC, Urine Auto RFX 7 /HPF 0-3 [facility] ([facility]) Bacteria, Urine Auto RFX Laboratory test result [facility] ([facility]) Squam Epithelial Cell Ur Aurfx 0 /HPF 0-6 [facility] Mucus, Urine RFX Laboratory test result [facility] ([facility]) Hyaline Cast, Urine Auto RFX 0 /LPF 0-1 M [facility] ([facility]) Calcium Oxalate Crystals RFX Laboratory test result [facility] ID Date Data Source [id number] 07/06/2020 10:33:00 AM EDT [facility] Name Value Range Interpretation Code Description Data Jaqueline rce(s) Supporting Document(s) Thyrotropin [Units/volume] in Serum or Plasma by Detec tion limit <= 0.05 mIU/L 0.73 uIU/mL 0.36-3.74 [facility] ([facility] ID Date Data Source [id number] 07/06/2020 10:33:00 AM EDT [facility] Name Value Range Interpretation Code Description Data Jaqueline rce(s) Supporting Document(s) Triglyceride [Mass/volume] in Serum or Plasma 42 mg/dL 30-150 [facility] ([facility]) Cholesterol [Mass/volume] in Serum or Plasma 193 mg/dL 131-200 [facility] Cholesterol in HDL [Mass/volume] in Serum or Plasma 83 mg/dL 35-60 [facility]) Cholesterol in LDL [Mass/volume] in Serum or Plasma by calcu lation 102 CALC 50-159 [facility] ID Date Data Source [id number] 07/06/2020 10:33:00 AM EDT [facility] Name Value Range Interpretation Code Description Data Jaqueline rce(s) Supporting Document(s) Glucose [Mass/volume] in Serum or Plasma 100 mg/dL 74-99 [facility] ([facility]) 100-125 mg/dL PRE-DIABETES/FASTING >126 mg/dL DIABETES/FASTING Creatinine 0.6 mg/dL 0.6-1.3 [facility] ([facility]) Sodium [Moles/volume] in Serum or Plasma 142 meq/L 136-145 [facility] ([facility]) Urea nitrogen [Mass/volume] in Serum or Plasma 19 mg/dL 7-18 [facility] ([facility]) Chloride [Moles/volume] in Serum or Plasma 100 meq/L 98-107 [facility] ([facility]) Carbon dioxide, total [Moles/volume] in Serum or Plasma 33 meq/L 21 -32 [facility] ([facility]) Potassium [Moles/volume] in Serum or Plasma 3.9 meq/L 3.5-5.1 [facility] ([facility]) Calcium [Mass/volume] in Serum or Plasma 9.8 mg/dL 8.5-10.1 [facility] ([facility]) Total Bilirubin 0.5 mg/dL 0.2-1.0 [facility] ([facility]) Alkaline phosphatase isoenzyme [Units/volume] in Serum or Pl asma 91 mg/dL 46-116 [facility] ([facility]) Albumin [Mass/volume] in Serum or Plasma 3.9 g/dL 3.4-5.0 [facility] ([facility]) Alanine aminotransferase [Enzymatic activity/volume] in Seru m or Plasma 28 U/L 12-78 [facility] ([facility]) Aspartate aminotransferase [Enzymatic activity/volume] in Serum or Plasma 22 U/L 15-37 [facility] ([facility] ) Proteinase 3 Ab [Units/volume] in Serum 7.5 g/dL 6.4-8.2 [facility] ([facility]) Glomerular filtration rate/1.73 sq M pre dicted among non-blacks [Volume Rate/Area] in Serum or Plasma by Creatinine-based formula (MDRD) Laboratory test result [facility] ([facility] Glomerular filtration rate/1.73 sq M pre dicted among blacks [Volume Rate/Area] in Serum or Plasma by Creatinine-based formula (MDRD) Laboratory test [facility] <content>CHRONIC KIDNEY DISEASE STAGING PER NKF</content>
<content></content>
<content>STAGE I & II GFR >= 60 NORMAL TO MILDLY DECREASED</content>
<content>STAGE III GFR 30-59 MODERATELY DECREASED</content>
<content>STAGE IV GFR 15-29 SEVERELY DECREASED</content>
<content>STAGE V GFR <15 VERY LITTLE GFR LEFT</content>
<content>ESRD GFR <15 ON SENIOR COST ESTIMATOR</content>
<content></content> A/G Ratio 1.08 CALC 1.00-1.90 [facility] ([facility]) ID Date Data Source [id number] 07/06/2020 10:33:00 AM EDT [facility] ([facility]) Name Value Range Interpretation Code Description Data Jaqueline rce(s) Supporting Document(s) Magnesium 1.8 mg/dL 1.8-2.4 [facility] ([facility]) ID Date Data Source [id number] 07/06/2020 10:33:00 AM EDT [facility] ([facility]) Name Value Range Interpretation Code Description Data Jaqueline rce(s) Supporting Document(s) Hemoglobin [Mass/volume] in Blood 12.5 g/dL 12.0-18.0 [facility] Erythrocytes [#/volume] in Blood by Automated count 4.27 x10*6/UL 4.2 0-6.30 [facility] Leukocytes [#/volume] in Blood by Automated count 7.2 x10*3/UL 4.1-10 .9 [facility] Hematocrit [Volume Fraction] of Blood by Automated count 37.0 % 3 7.0-51.0 [facility] MCH 29.3 pg 26.0-32.0 [facility] ([facility]) MCV 86.7 fL 80.0-97.0 [facility]) Erythrocyte distribution width [Ratio] by Automated count 12.3 % 11.6-13.7 [facility] ([facility]) Platelets [#/volume] in Blood by Automated count 311 x10*3/UL 140-440 [facility] ([facility]) MCHC 33.8 g/dL 31.0-38.0 [facility] MPV 9.0 FL 7.8-11.0 [facility] Lymph % 21.4 % 10.0-58.5 [facility] Mid % 6.6 % 1.7-9.3 [facility] Neut % 72.0 % 37.0-92.0 [facility] Lymph # 1.5 x10*3/UL 0.6-4.1 [facility] ([facility]) Mid # 0.5 x10*3/UL 0.1-0.6 [facility] ([facility]) Neut # 5.2 x10*3/UL 2.0-7.8 [facility] ([facility]) Procedure Social History Code Duration Value Status Description Data Source(s ) Smoking 01/15/2021 12:00:00 AM EST Former Smoker completed Former Smoker eCW1 ([facility]) Smoking 01/09/2021 12:00:00 AM EST Former Smoker completed Former Smoker eCW1 ([facility]) Smoking 01/04/2021 12:00:00 AM EST Former Smoker completed Former Smoker eCW1 ([facility]) Smoking 01/04/2021 12:00:00 AM EST Former Smoker completed Former Smoker eCW1 ([facility]) Smoking 01/03/2021 12:00:00 AM EST Former Smoker completed Former Smoker eCW1 ([facility]) Smoking 12/27/2020 12:00:00 AM EST Former Smoker completed Former Smoker eCW1 ([facility]) Smoking 12/19/2020 12:00:00 AM EST Former Smoker completed Former Smoker eCW1 ([facility]) Smoking 12/19/2020 12:00:00 AM EST Former Smoker completed Former Smoker eCW1 ([facility]) Smoking 12/06/2020 12:00:00 AM EST Former Smoker completed Former Smoker eCW1 ([facility]) Smoking 11/17/2020 12:00:00 AM EST Former Smoker completed Former Smoker eCW1 ([facility]) Smoking 11/17/2020 12:00:00 AM EST Former Smoker completed Former Smoker eCW1 ([facility]) Smoking 11/17/2020 12:00:00 AM EST Former Smoker completed Former Smoker eCW1 ([facility]) Smoking 11/17/2020 12:00:00 AM EST Former Smoker completed Former Smoker eCW1 ([facility]) Smoking 11/17/2020 12:00:00 AM EST Former Smoker completed Former Smoker eCW1 ([facility]) Smoking 11/17/2020 12:00:00 AM EST Former Smoker completed Former Smoker eCW1 ([facility]) Smoking 11/17/2020 12:00:00 AM EST Former Smoker completed Former Smoker eCW1 ([facility]) Smoking 11/17/2020 12:00:00 AM EST Former Smoker completed Former Smoker eCW1 ([facility]) Smoking 11/17/2020 12:00:00 AM EST Former Smoker completed Former Smoker eCW1 ([facility]) Smoking 11/14/2020 12:00:00 AM EST Former Smoker completed Former Smoker eCW1 ([facility]) Vital Signs ID Date Data Source [id number] Name Value Range Interpretation Code Description Data Source(s) Diastolic blood pressure 82 mm[Hg] 82 mm[Hg] eCW1 ([facility]) Systolic blood pressure 160 mm[Hg] 160 mm[Hg] e CW1 ([facility]) Respiratory rate 18 /min 18 /min eCW1 ([facility]) Heart rate 100 /min 100 /min eCW1 ([facility]) Body mass index (BMI) [Ratio] 15.11 kg/m2 15.11 kg/m2 eCW1 ([facility]) Body height 61 [in_i] 61 [in_i] eCW1 ([facility]) Body weight 80 [lb_av] 80 [lb_av] eCW1 ([facility]) Diastolic blood pressure 78 mm[Hg] 78 mm[Hg] eCW1 ([facility]) Systolic blood pressure 132 mm[Hg] 132 mm[Hg] e CW1 ([facility]) Body temperature 97.8 [degF] 97.8 [degF] eCW1 ( [facility]) Respiratory rate 22 /min 22 /min eCW1 ([facility]) Heart rate 105 /min 105 /min eCW1 ([facility]) Body mass index (BMI) [Ratio] 14.55 kg/m2 14.55 kg/m2 eCW1 ([facility]) Body height 61 [in_i] 61 [in_i] eCW1 ([facility]) Body weight 77 [lb_av] 77 [lb_av] eCW1 ([facility]) Diastolic blood pressure 55 mm[Hg] 55 mm[Hg] eCW1 ([facility]) Systolic blood pressure 148 mm[Hg] 148 mm[Hg] e CW1 ([facility]) Body temperature 98 [degF] 98 [degF] eCW1 ([facility]) Respiratory rate 24 /min 24 /min eCW1 ([facility]) Heart rate 110 /min 110 /min eCW1 ([facility]) Body mass index (BMI) [Ratio] 14.55 kg/m2 14.55 kg/m2 eCW1 ([facility] [facility]) Body height 61 [in_i] 61 [in_i] eCW1 ([facility]) Body weight 77 [lb_av] 77 [lb_av] eCW1 ([facility]) Diastolic blood pressure 79 mm[Hg] 79 mm[Hg] eCW1 ([facility]) Systolic blood pressure 128 mm[Hg] 128 mm[Hg] e CW1 ([facility]) Respiratory rate 22 /min 22 /min eCW1 ([facility]) Heart rate 116 /min 116 /min eCW1 ([facility]) Body mass index (BMI) [Ratio] 14.93 kg/m2 14.93 kg/m2 eCW1 ([facility]) Body height 61 [in_i] 61 [in_i] eCW1 ([facility]) Body weight 79 [lb_av] 79 [lb_av] eCW1 ([facility]) Diastolic blood pressure 81 mm[Hg] 81 mm[Hg] eCW1 ([facility]) Systolic blood pressure 131 mm[Hg] 131 mm[Hg] e CW1 ([facility]) Body temperature 97.8 [degF] 97.8 [degF] eCW1 ( [facility]) Respiratory rate 24 /min 24 /min eCW1 ([facility]) Heart rate 120 /min 120 /min eCW1 ([facility]) Body mass index (BMI) [Ratio] 14.93 kg/m2 14.93 kg/m2 eCW1 ([facility]) Body height 61 [in_i] 61 [in_i] eCW1 ([facility]) Body weight 79 [lb_av] 79 [lb_av] eCW1 ([facility]) Diastolic blood pressure 70 mm[Hg] 70 mm[Hg] eCW1 ([facility]) Systolic blood pressure 117 mm[Hg] 117 mm[Hg] e CW1 ([facility]) Body temperature 98.7 [degF] 98.7 [degF] eCW1 ( [facility]) Respiratory rate 24 /min 24 /min eCW1 ([facility]) Heart rate 69 /min 69 /min eCW1 ([facility]) Body mass index (BMI) [Ratio] 14.93 kg/m2 14.93 kg/m2 eCW1 ([facility]) Body height 61 [in_i] 61 [in_i] eCW1 ([facility]) Body weight 79 [lb_av] 79 [lb_av] eCW1 ([facility]) Diastolic blood pressure 68 mm[Hg] 68 mm[Hg] eCW1 ([facility]) Systolic blood pressure 110 mm[Hg] 110 mm[Hg] e CW1 ([facility]) Body mass index (BMI) [Ratio] 20.78 kg/m2 20.78 kg/m2 W1 ([facility]) Body height 61 [in_i] 61 [in_i] eCW1 ([facility]) Body weight 110 [lb_av] 110 [lb_av] eCW1 ([facility]) Diastolic blood pressure 68 mm[Hg] 68 mm[Hg] eCW1 ([facility]) Systolic blood pressure 110 mm[Hg] 110 mm[Hg] e CW1 ([facility]) Body temperature 98.9 [degF] 98.9 [degF] eCW1 ( [facility]) Respiratory rate 22 /min 22 /min eCW1 ([facility]) Heart rate 105 /min 105 /min eCW1 ([facility]) Body mass index (BMI) [Ratio] 14.55 kg/m2 14.55 kg/m2 eCW1 ([facility]) Body height 61 [in_i] 61 [in_i] eCW1 ([facility]) Body weight 77 [lb_av] 77 [lb_av] eCW1 ([facility]) Diastolic blood pressure 68 mm[Hg] 68 mm[Hg] eCW1 ([facility]) Systolic blood pressure 118 mm[Hg] 118 mm[Hg] e CW1 ([facility]) Body mass index (BMI) [Ratio] 14.55 kg/m2 14.55 kg/m2 eCW1 ([facility]) Body height 61 [in_i] 61 [in_i] eCW1 ([facility]) Body weight 77 [lb_av] 77 [lb_av] eCW1 ([facility]) Body mass index (BMI) [Ratio] 15.1 kg/m2 15.1 k g/m2 JOHN ([facility]) Oxygen saturation in Arterial blood by Pulse oximetry 94 % 94 % JOHN ([facility]) With O2 @ 2L Body weight 78.50 [lb_av] 78.50 [lb_av] MEDENT ([facility]) Body height 60.50 [in_i] 60.50 [in_i] MEDENT ( [facility]) 5'0.50" Heart rate 105 /min 105 /min MEDENT ([facility]) Diastolic blood pressure 50 mm[Hg] 50 mm[Hg] MEDENT ([facility]) Systolic blood pressure 110 mm[Hg] 110 mm[Hg] M EDENT ([facility]) Diastolic blood pressure 74 mm[Hg] 74 mm[Hg] eCW1 ([facility]) Systolic blood pressure 108 mm[Hg] 108 mm[Hg] e CW1 ([facility]) Body temperature 97.6 [degF] 97.6 [degF] eCW1 ( [facility]) Respiratory rate 22 /min 22 /min eCW1 ([facility]) Heart rate 86 /min 86 /min eCW1 ([facility]) Body mass index (BMI) [Ratio] 14.93 kg/m2 14.93 kg/m2 W1 ([facility]) Body height 61 [in_i] 61 [in_i] eCW1 ([facility]) Body weight 79 [lb_av] 79 [lb_av] eCW1 ([facility]) Diastolic blood pressure 82 mm[Hg] 82 mm[Hg] eCW1 ([facility]) Systolic blood pressure 125 mm[Hg] 125 mm[Hg] e CW1 ([facility]) Body temperature 97.2 [degF] 97.2 [degF] eCW1 ( [facility]) Respiratory rate 24 /min 24 /min eCW1 ([facility]) Heart rate 114 /min 114 /min eCW1 ([facility]) Body mass index (BMI) [Ratio] 14.74 kg/m2 14.74 kg/m2 eCW1 ([facility]) Body height 61 [in_i] 61 [in_i] eCW1 ([facility]) Body weight 78 [lb_av] 78 [lb_av] eCW1 ([facility]) Body mass index (BMI) [Ratio] 15.8 kg/m2 15.8 k g/m2 MEDENT ([facility]) Oxygen saturation in Arterial blood by Pulse oximetry --post exerci se 90 % 90 % MEDENT ([facility]) With 02 Body weight 82.50 [lb_av] 82.50 [lb_av] MEDENT ([facility]) Body height 60.50 [in_i] 60.50 [in_i] MEDENT ([facility]) 5'0.50" Heart rate 100 /min 100 /min MEDENT ([facility]) Diastolic blood pressure 80 mm[Hg] 80 mm[Hg] MEDENT ([facility]) Systolic blood pressure 130 mm[Hg] 130 mm[Hg] M EDENT ([facility]) Diastolic blood pressure 86 mm[Hg] 86 mm[Hg] MEDENT ([facility]) RT Arm Systolic blood pressure 146 mm[Hg] 146 mm[Hg] M EDENT ([facility]) RT Arm Patient Treatment Plan of Care Planned Activity Planned Date Details Description Data Source (s) Cephalexin 500 MG Oral Capsule 01/09/2021 12:00:00 AM EST eCW1 ([facility]) Ciprofloxacin 500 MG Oral Tablet 12/06/2020 12:00:00 AM EST eCW1 ([facility]) Ciprofloxacin 500 MG Oral Tablet 11/14/2020 12:00:00 AM EST eCW1 ([facility]) Oxybutynin chloride 5 MG Oral Tablet 09/08/2020 12:00:00 AM EDT eCW1 ([facility]) Oxybutynin chloride 5 MG Oral Tablet 09/08/2020 12:00:00 AM EDT eCW1 ([facility]) Oxybutynin chloride 5 MG Oral Tablet 09/08/2020 12:00:00 AM EDT eCW1 ([facility])
--- OUTSIDE RECORDS SUMMARY | 2021-01-21 12:27 | CCD ---
Author Author [facility] Organization [facility] Address Unknown Phone Unavailable Care Team Providers Care Home Decorator Name Role Phone Benji Guillermo MD Unavailable [...] Unavailable EagleBenji conteh MD Unavailable Unavailable EagleBenji brown MD Unavailable Unavailable Benji Guillermo MD Unavailable [...] Unavailable Unavailable Benji Guillermo MD Unavailable Unavailable Eagle Benji Ute ROY Unavailable Unavailable Re-disclosure Warning [...] is protected by Article 27-F of the [facility] Public Health law. If you continue you may have access to information: Regarding HIV / AIDS; Provided by facilities licensed or operated by the [facility] Office of Mental Health; or Provided by the [facility] Office for People With Developmental Disabilities. If such information is present, then the following [facility] mandated warning applies: This information has been [...] law may result in a fine or skilled nursing sentence or both. A general authorization for the release of medical or other information is NOT sufficient authorization for further disc losure. Family History Family Member Name Family Member Gender Family Member Status Date o f Status Description Data Source(s) Unknown Male Problem MEDENT ([facility], ) () Unknown Female Problem MEDENT ([facility]) Recently diagnosed Encounters Encounter Providers Location Date Indications Data Source(s ) (Cysto1) Urology [address] [place] [address] 01/15/2021 12:00:00 AM EST eCW1 ([facility]) [place] [address] [facility] [place] [address] 01/09/2021 12:00:00 AM EST eCW1 ([facility]) [place] [address] [facility] [place] [address] 01/04/2021 12:00:00 AM EST eCW1 ([facility]) [place] [address] [facility] [place] [address] 01/03/2021 12:00:00 AM EST eCW1 ([facility]) [place] [address] [facility] [place] [address] 12/27/2020 12:00:00 AM EST eCW1 ([facility]) [place] [address] [facility] [place] [address] 12/19/2020 12:00:00 AM EST eCW1 ([facility]) Unknown [address] [facility] [place] [address] 12/18/2020 12:00:00 AM EST eCW1 ([facility]) [place]op visit [address] [facility] [place] [address] 12/06/2020 12:00:00 AM EST eCW1 ([facility]) [place]patient [address] [facility] [place] [address] 11/28/2020 12:00:00 AM EST eCW1 ([facility]) Unknown [address] [facility] [place] [address] 11/28/2020 12:00:00 AM EST eCW1 ([facility]) Unknown [address] [facility] [place] [address] 11/28/2020 12:00:00 AM EST eCW1 ([facility]) [place] [address] [facility] [place] [address] 11/28/2020 12:00:00 AM EST [facility]CW1 [facility] [place] [address] [facility] [place] [address] 11/21/2020 12:00:00 AM EST [facility] [address] [facility] [place] [address] 11/17/2020 12:00:00 AM EST eCW1 [facility] Unknown [address] [facility] [place] [address] 11/17/2020 12:00:00 AM EST eCW1 [facility] [place] [address] [facility] [place] [address] 11/14/2020 12:00:00 AM EST eCW1 ([facility] Unknown [address] [facility] [place] [address] 11/10/2020 12:00:00 AM EST eCW1 ([facility]) Unknown [address] [facility] [place] [address] 10/30/2020 12:00:00 AM EST eCW1 [facility]) Outpatient Attender: Ute Roche 09:30:00 AM EST MEDENT ([facility] ) Outpatient [address] [facility] [place] [address] 10/04/2020 12:00:00 AM EST eCW1 ([facility] Unknown [address] [facility] [place] Y [address] 10/04/2020 12:00:00 AM EST eCW1 ([facility]) Unknown [address] [facility] [place] [address] 09/28/2020 12:00:00 AM EDT eCW1 ([facility]) Unknown [address] [facility] [place] [address] 09/26/2020 12:00:00 AM EDT eCW1 ([facility]) Unknown [address] [facility] [place] [address] 09/08/2020 12:00:00 AM EDT eCW1 ([facility]) [place] [address] [facility] [place] [address] 09/06/2020 12:00:00 AM EDT eCW1 ([facility]) Unknown [address] [facility] [place] [address] 09/06/2020 12:00:00 AM EDT eCW1 ([facility]) Outpatient Attender: Ute Roche 10:15:00 AM EDT MEDENT ([facility] ) Immunizations Vaccine Date Status Description Data Source(s) Influenza, injectable, MDCK, preservative free, larry valent 10/19/2020 09:26:00 AM EST completed MED[facility]) influenza, recombinant, quadrIvalent,injectable, prese rvative free 10/02/2020 01:57:00 PM EST completed eCW1 ([facility]) influenza, recombinant, quadrIvalent,injectable, prese rvative free 10/02/2020 01:57:00 PM EST completed eCW1 ([facility]) influenza, recombinant, quadrIvalent,injectable, prese rvative free 10/02/2020 01:57:00 PM EST completed eCW1 ([facility]) influenza, recombinant, quadrIvalent,injectable, prese rvative free 10/02/2020 01:57:00 PM EST completed eCW1 ([facility]) influenza, recombinant, quadrIvalent,injectable, prese rvative free 10/02/2020 01:57:00 PM EST completed eCW1 ([facility]) influenza, recombinant, quadrIvalent,injectable, prese rvative free 10/02/2020 01:57:00 PM EST completed eCW1 ([facility]) influenza, recombinant, quadrIvalent,injectable, prese rvative free 10/02/2020 01:57:00 PM EST completed eCW1 ([facility]) influenza, recombinant, quadrIvalent,injectable, prese rvative free 10/02/2020 01:57:00 PM EST completed eCW1 ([facility]) Medications Medication Brand Name Start Date Product Form Dose Route Admi nistrative Instructions Pharmacy Instructions Status Indications Reaction Description Data Source(s) Cephalexin 500 MG Oral Capsule Cephalexin 500 MG 01/09/2021 12:00:00 AM EST active Cephalexin 500 MG eC W1 ([facility]) Cephalexin 500 MG Oral Capsule Cephalexin 500 MG 01/09/2021 12:00:00 AM EST active Cephalexin 500 MG eC W1 (On [facility]) Ciprofloxacin 500 MG Oral Tablet Ciprofloxacin HCl 500 MG Ciprofloxacin HCl 500 MG 12/06/2020 12:00:00 AM EST 1.0 {tablet} activ e Ciprofloxacin HCl 500 MG eCW1 ([facility]) Ciprofloxacin 500 MG Oral Tablet Ciprofloxacin HCl 500 MG Ciprofloxacin HCl 500 MG 12/06/2020 12:00:00 AM EST 1.0 {tablet} activ e Ciprofloxacin HCl 500 MG eCW1 (On [facility]) Ciprofloxacin 500 MG Oral Tablet Ciprofloxacin HCl 500 MG Ciprofloxacin HCl 500 MG 12/06/2020 12:00:00 AM EST 1.0 {tablet} activ e Ciprofloxacin HCl 500 MG eCW1 (On [facility]) Ciprofloxacin 500 MG Oral Tablet Ciprofloxacin HCl 500 MG Ciprofloxacin HCl 500 MG 12/06/2020 12:00:00 AM EST 1.0 {tablet} activ e Ciprofloxacin HCl 500 MG eCW1 (On [facility]) Ciprofloxacin 500 MG Oral Tablet Ciprofloxacin HCl 500 MG Ciprofloxacin HCl 500 MG 12/06/2020 12:00:00 AM EST 1.0 {tablet} activ e Ciprofloxacin HCl 500 MG eCW1 (On [facility]) Ciprofloxacin 500 MG Oral Tablet Ciprofloxacin HCl 500 MG Ciprofloxacin HCl 500 MG 12/06/2020 12:00:00 AM EST 1.0 {tablet} activ e Ciprofloxacin HCl 500 MG eCW1 (On [facility] Of [facility]) Ciprofloxacin 500 MG Oral Tablet Ciprofloxacin HCl 500 MG Ciprofloxacin HCl 500 MG 12/06/2020 12:00:00 AM EST 1.0 {tablet} activ e Ciprofloxacin HCl 500 MG eCW1 (On [facility]) Ciprofloxacin 500 MG Oral Tablet Ciprofloxacin HCl 500 MG Ciprofloxacin HCl 500 MG 12/06/2020 12:00:00 AM EST 1.0 {tablet} activ e Ciprofloxacin HCl 500 MG eCW1 (On [facility]) Ciprofloxacin 500 MG Oral Tablet Ciprofloxacin HCl 500 MG Ciprofloxacin HCl 500 MG 12/06/2020 12:00:00 AM EST 1.0 {tablet} activ e Ciprofloxacin HCl 500 MG eCW1 (On [facility]) Ciprofloxacin 500 MG Oral Tablet Ciprofloxacin HCl 500 MG Ciprofloxacin HCl 500 MG 11/14/2020 12:00:00 AM EST 1.0 {tablet} activ e Ciprofloxacin HCl 500 MG eCW1 (On [facility] Of [facility]) Ciprofloxacin 500 MG Oral Tablet Ciprofloxacin HCl 500 MG Ciprofloxacin HCl 500 MG 11/14/2020 12:00:00 AM EST 1.0 {tablet} activ e Ciprofloxacin HCl 500 MG eCW1 (On [facility]) Ciprofloxacin 500 MG Oral Tablet Ciprofloxacin HCl 500 MG Ciprofloxacin HCl 500 MG 11/14/2020 12:00:00 AM EST 1.0 {tablet} activ e Ciprofloxacin HCl 500 MG eCW1 (On [facility]) Ciprofloxacin 500 MG Oral Tablet Ciprofloxacin HCl 500 MG Ciprofloxacin HCl 500 MG 11/14/2020 12:00:00 AM EST 1.0 {tablet} activ e Ciprofloxacin HCl 500 MG eCW1 (On [facility]) Ciprofloxacin 500 MG Oral Tablet Ciprofloxacin HCl 500 MG Ciprofloxacin HCl 500 MG 11/14/2020 12:00:00 AM EST 1.0 {tablet} activ e Ciprofloxacin HCl 500 MG eCW1 (On [facility]) Ciprofloxacin 500 MG Oral Tablet Ciprofloxacin HCl 500 MG Ciprofloxacin HCl 500 MG 11/14/2020 12:00:00 AM EST 1.0 {tablet} activ e Ciprofloxacin HCl 500 MG eCW1 (On [facility]) Ciprofloxacin 500 MG Oral Tablet Ciprofloxacin HCl 500 MG Ciprofloxacin HCl 500 MG 11/14/2020 12:00:00 AM EST 1.0 {tablet} activ e Ciprofloxacin HCl 500 MG eCW1 (On [facility]) Ciprofloxacin 500 MG Oral Tablet Ciprofloxacin HCl 500 MG Ciprofloxacin HCl 500 MG 11/14/2020 12:00:00 AM EST 1.0 {tablet} activ e Ciprofloxacin HCl 500 MG eCW1 (On [facility] Of [facility]) Ciprofloxacin 500 MG Oral Tablet Ciprofloxacin HCl 500 MG Ciprofloxacin HCl 500 MG 11/14/2020 12:00:00 AM EST 1.0 {tablet} activ e Ciprofloxacin HCl 500 MG eCW1 (On [facility] Of [facility]) Ciprofloxacin 500 MG Oral Tablet Ciprofloxacin HCl 500 MG Ciprofloxacin HCl 500 MG 11/14/2020 12:00:00 AM EST 1.0 {tablet} activ e Ciprofloxacin HCl 500 MG eCW1 (On [facility] Of [facility]) Ciprofloxacin 500 MG Oral Tablet Ciprofloxacin HCl 500 MG Ciprofloxacin HCl 500 MG 11/14/2020 12:00:00 AM EST 1.0 {tablet} activ e Ciprofloxacin HCl 500 MG eCW1 (On [facility]) Ciprofloxacin 500 MG Oral Tablet Ciprofloxacin HCl 500 MG Ciprofloxacin HCl 500 MG 11/14/2020 12:00:00 AM EST 1.0 {tablet} activ e Ciprofloxacin HCl 500 MG eCW1 (On [facility] Of [facility]) Ciprofloxacin 500 MG Oral Tablet Ciprofloxacin HCl 500 MG Ciprofloxacin HCl 500 MG 11/14/2020 12:00:00 AM EST 1.0 {tablet} activ e Ciprofloxacin HCl 500 MG eCW1 (On [facility] Of [facility]) Ciprofloxacin 500 MG Oral Tablet Ciprofloxacin HCl 500 MG Ciprofloxacin HCl 500 MG 11/14/2020 12:00:00 AM EST 1.0 {tablet} activ e Ciprofloxacin HCl 500 MG eCW1 (On [facility] Of [facility]) Ciprofloxacin 500 MG Oral Tablet Ciprofloxacin HCl 500 MG Ciprofloxacin HCl 500 MG 11/14/2020 12:00:00 AM EST 1.0 {tablet} activ e Ciprofloxacin HCl 500 MG eCW1 (On [facility]) Ciprofloxacin 500 MG Oral Tablet Ciprofloxacin HCl 500 MG Ciprofloxacin HCl 500 MG 11/14/2020 12:00:00 AM EST 1.0 {tablet} activ e Ciprofloxacin HCl 500 MG eCW1 (On [facility] Of [facility]) Ciprofloxacin 500 MG Oral Tablet Ciprofloxacin HCl 500 MG Ciprofloxacin HCl 500 MG 11/14/2020 12:00:00 AM EST 1.0 {tablet} activ e Ciprofloxacin HCl 500 MG eCW1 (On [facility] Of [facility]) Ciprofloxacin 500 MG Oral Tablet Ciprofloxacin HCl 500 MG Ciprofloxacin HCl 500 MG 11/14/2020 12:00:00 AM EST 1.0 {tablet} activ e Ciprofloxacin HCl 500 MG eCW1 (On [facility] Of [facility]) Ciprofloxacin 500 MG Oral Tablet Ciprofloxacin HCl 500 MG Ciprofloxacin HCl 500 MG 11/14/2020 12:00:00 AM EST 1.0 {tablet} activ e Ciprofloxacin HCl 500 MG eCW1 (On [facility] Of [facility]) Alendronic acid 70 MG Oral Tablet Alendronate Sodium 10/19/2020 12:00:00 AM EST active MEDENT ( [facility]) Calcium Carbonate 1500 MG / Cholecalciferol 200 UNT Oral Tab let Calcium 600 + D 10/19/2020 12:00:00 AM EST ORAL active MEDENT ([facility]) Administration Of Flu Vaccine 10/19/2020 12:00:00 AM EST completed [facility]) Medication administered onsite Oxybutynin chloride 5 MG Oral Tablet Oxybutynin Chlori de 5 MG Oxybutynin Chloride 5 MG 09/08/2020 12:00:00 AM EDT 1.0 {tablet} active Oxybutynin Chloride 5 MG eCW1 (On [facility]) Oxybutynin chloride 5 MG Oral Tablet Oxybutynin Chlori de 5 MG Oxybutynin Chloride 5 MG 09/08/2020 12:00:00 AM EDT 1.0 {tablet} active Oxybutynin Chloride 5 MG eCW1 (On [facility] Of [facility]) Oxybutynin chloride 5 MG Oral Tablet Oxybutynin Chlori de 5 MG Oxybutynin Chloride 5 MG 09/08/2020 12:00:00 AM EDT 1.0 {tablet} active Oxybutynin Chloride 5 MG eCW1 (On [facility] Of [facility]) Oxybutynin chloride 5 MG Oral Tablet Oxybutynin Chlori de 5 MG Oxybutynin Chloride 5 MG 09/08/2020 12:00:00 AM EDT 1.0 {tablet} active Oxybutynin Chloride 5 MG eCW1 (On [facility] Of [facility]) Insurance Providers Payer name Policy type / Coverage type Policy ID Covered republican ID Covered republican's relationship to bales Policy Bales Plan Information [facility] HEALTH [facility]ARE OPTIONS [id number] SP [id number] MEDICARE [id number] SP [id number] AAR O [id number] S [id number] MEDICARE C [id number] MEDICARE [id number] SP [id number] [facility] HEALTH CARE OPTIONS [id number] SP [id number] [facility] Healthcare Opt Medigap Part B [id number] 12 Self [id number] Medicare [place] Govt Servic Medicare Primary [id number] Self [id number] United Hcare/Multiplan Medigap Part B [id number] Self [id number] [facility] Opt Medigap Part B [id number] 12 Self [id number] 12 Medicare [place] Govt Servic Medicare Primary [id number] Self [id number] [facility] Opt Medigap Part B [id number] 12 Self [id number] 12 Medicare [place] Govt Servic Medicare Primary [id number] Self [id number] [facility] Medigap Part B [id number] Self [id number] [place] Medicare Primary [id number] Self [id number] [facility] Opt Medigap Part B [id number] 12 Self [id number] 12 Medicare [place] Govt Servic Medicare Primary [id number] Self [id number] [facility] Medigap Part B [id number] Self [id number] [place] Medicare Primary [id number] Self [id number] MEDICARE [id number] SP [id number] [facility] Opt Medigap Part B [id number] 12 Self [id number] 12 Medicare [place] Gov[place] Medicare Primary [id number] Self [id number] AARP HEALTH CARE OPTIONS [id number] SP [id number] [facility] [id number] SP [id number] United Hcare/Multiplan Medigap Part B Self [facility] Opt Medigap Part B Self Medicare [place] Govt Servic Medicare Primary Self AARP HEALTH CARE OPTIONS UNAVAILABLE UNAVAILABLE AARP HEALTH CARE OPTIONS [id number] SP [id number] AARP S UNAVAILABLE S UNAVAILA BLE MEDICARE P UNAVAILABLE S UNAVAILA BLE [id number] A [id number] Problems, Conditions, and Diagnoses Code Display Name Description Problem Type Effective Dates Data Source(s) N21.0 Bladder stone Bladder stone Problem 01/15/2021 12:00:00 AM EST eCW1 ([facility]) R33.9 Urinary retention Urinary retention Problem 12/27/2020 12:00:00 AM EST eCW1 (On [facility]) C44.729 [id number] Squamous cell carcinoma of left lower leg Problem 11/14/2020 12:00:00 AM EST eCW1 ([facility]) N32.89 Bladder spasm Bladder spasm Problem 09/08/2020 12:00:00 AM EDT eCW1 ([facility]) Surgeries/Procedures Procedure Description Date Indications Data Source(s) Medication: Lidocaine HCl 2% Jelly 5mL Intravesically 01/15/2021 12:00:00 AM EST eCW1 ([facility]) Medication: Lidocaine HCl 2% Jelly 5mL Intravesically 01/09/2021 12:00:00 AM EST eCW1 ([facility]) Medication: Lidocaine HCl 2% Jelly 5mL Intravesically 01/04/2021 12:00:00 AM EST eCW1 ([facility]) Antony Catheter Insertion 16F 01/03/2021 12:00:00 AM ES T eCW1 ([facility]) Medication: Lidocaine HCl 2% Jelly 5mL Intravesically 12/27/2020 12:00:00 AM EST eCW1 ([facility]) Antony Catheter Insertion 16F 12/19/2020 12:00:00 AM ES T eCW1 ([facility]) Suture Removal 11/28/2020 12:00:00 AM EST eCW1 ([facility]) Suture Removal 11/21/2020 12:00:00 AM EST eCW1 ([facility]) Antony Catheter Insertion 16F 11/17/2020 12:00:00 AM ES T eCW1 ([facility]) ECG ROUTINE ECG W/LEAST 12 LDS W/I&R 10/19/2020 12:00: 00 AM EST MEDANGELINA ([facility]) Antony Catheter Insertion 16F 10/04/2020 12:00:00 AM ES T eCW1 ([facility]) Antony Catheter Insertion 16F 09/06/2020 12:00:00 AM ED T eCW1 ([facility]) Results ID Date Data Source [id number] 10/29/2020 03:07:00 PM EST JOHN ([facility]) Name Value Range Interpretation Code Description Data Jaqueline rce(s) Supporting Document(s) Glucose, Fasting 96 mg/dL 70-100 MEDENT ([facility]) Glomerular Filtration Rate Laboratory test result MEDENT ([facility]) <content>Units are mL/min/1.73 m2</content>
<content></content>
<content>Chronic Kidney Disease Staging per NKF:</content>
<content></content>
<content>Stage I & II GFR >=60 Normal to Mildly Decreased</content>
<content>Stage III GFR 30-59 Moderately Decreased</content>
<content>Stage IV GFR 15-29 Severely Decreased</content>
<content>Stage V GFR <15 Very Little GFR Left</content>
<content>ESRD GFR <15 on NURSING SCHEDULER</content>
<content></content> Creatinine For GFR 0.52 mg/dL 0.55-1.30 MEDENT ([facility]) Blood Urea Nitrogen 17 mg/dL 7-18 MEDENT ([facility]) Sodium Level 136 meq/L 136-145 MEDENT ([facility]) Potassium Serum 4.3 meq/L 3.5-5.1 MEDENT ([facility]) Chloride Level 99 meq/L 98-107 MEDENT ([facility]) Calcium Level 9.1 mg/dL 8.8-10.2 MEDENT ([facility]) Anion Gap 5 meq/L 8-16 MED[facility] ([facility]) Carbon Dioxide Level 32 meq/L 21-32 MEDENT ([facility]) ID Date Data Source [id number] 10/29/2020 03:07:00 PM EST MEDENT ([facility]) Name Value Range Interpretation Code Description Data Jaqueline [facility](s) Supporting Document(s) Hemoglobin 11.2 g/dL 12.0-15.5 [facility] ([facility]) Red Blood Count 3.85 10 4.00-5.40 [facility] White Blood Count 6.6 10 4.0-10.0 MEDENT ([facility]) Hematocrit 36.0 % 36.0-47.0 [facility] ([facility]) Mean Corpuscular Volume 93.5 fl 80.0-96.0 MEDENT ([facility]) Mean Corpuscular Hemoglobin 29.1 pg 27.0-33.0 ME DENT ([facility]) Platelet Count, Automated 278 10 150-450 MEDE NT ([facility]) Mean Corpuscular HGB Conc 31.1 g/dL 32.0-36.5 MEDE NT ([facility]) Red Cell Distribution Width 11.9 % 11.5-14.5 ME DENT ([facility]) Neutrophils % 71.3 % 36.0-66.0 MEDENT ([facility] [place] % 5.9 % 0.0-5.0 MED[facility] ([facility]) Lymph % 18.3 % 24.0-44.0 MED[facility] ([facility]) Eos % 3.6 % 0.0-3.0 [facility] ([facility]) Baso % 0.6 % 0.0-1.0 MED[facility] ([facility]) Immature Granulocyte % 0.3 % 0-3.0 MEDENT ([facility]) Nucleated Red Blood Cell % 0.0 % 0-0 MED ENT ([facility]) Neutrophils # 4.7 10 1.5-8.5 MEDENT ([facility]) Lymph # 1.2 10 1.5-5.0 MED[facility] ([facility]) [place] # 0.4 10 0.0-0.8 MED[facility] ([facility]) Eos # 0.2 10 0.0-0.5 MED[facility] ([facility]) Baso # 0.0 10 0.0-0.2 MED[facility] ([facility]) ID Date Data Source [id number] 10/29/2020 02:36:00 PM EST MEDENT ([facility]) Name Value Range Interpretation Code Description Data Jaqueline rce(s) Supporting Document(s) Reflex Urine Culture Laboratory test result MEDENT ([facility]) <content>FULL REPORT IN LAB NOTES (eCW [...]
<content>CLIDAMYCIN SENSITIVE.</content>
<content></content> ID Date Data Source [id number] 10/29/2020 02:36:00 PM EST [facility] Name Value Range Interpretation Code Description Data Jaqueline rce(s) Supporting Document(s) Appearance, Urine RFX Laboratory test result [facility] PH,Urine RFX 6.0 units 5.0-9.0 [facility] Specific [place] Ur Auto RFX 1.016 1.002-1.035 [facility] Color, Urine RFX Laboratory test [facility] Glucose, Urine (Ua) Auto RFX Laboratory test result [facility] Ketone, Urine Auto RFX Laboratory test result [facility] Protein, Urine Auto RFX Laboratory test result [facility] Nitrite, Urine Auto RFX Laboratory test result MED[facility] ([facility]) Bilirubin, Urine Auto RFX Laboratory test result [facility] Urobilinogen, Urine Auto RFX 0.2 mg/dL 0.0-2.0 [facility] Leukocyte Esterase Ur Auto RFX Laboratory test result [facility] WBC, Urine Auto RFX Laboratory test result 0-3 [facility] Blood, Urine Blood RFX Laboratory test result [facility] RBC, Urine Auto RFX Laboratory test result 0-3 [facility] Bacteria, Urine Auto RFX Laboratory test result [facility] Hyaline Cast, Urine Auto RFX 0 /LPF 0-1 M [facility] Squam Epithelial Cell Ur Aurfx 1 /HPF 0-6 [facility] ID Date Data Source [id number] 10/19/2020 11:23:00 AM EST [facility] Name Value Range Interpretation Code Description Data Jaqueline rce(s) Supporting Document(s) Calcidiol [Mass/volume] in Serum or Plasma 41.1 24.0-80.0 [facility] This test was performed using [employer] I P Vitamin D immunoassay kit. Values obtained with different assay methods should not be used interchangeably. ID Date Data Source [id number] 10/19/2020 11:23:00 AM EST [facility] Name Value Range Interpretation Code Description Data Jaqueline rce(s) Supporting Document(s) Glucose [Mass/volume] in Serum or Plasma 96 mg/dL 74-99 [facility] 100-125 mg/dL PRE-DIABETES/FASTING >126 mg/dL DIABETES/FASTING Urea nitrogen [Mass/volume] in Serum or Plasma 20 mg/dL 7-18 [facility] Creatinine 0.6 mg/dL 0.6-1.3 [facility] Potassium [Moles/volume] in Serum or Plasma 4.1 meq/L 3.5-5.1 [facility] ([facility]) Sodium [Moles/volume] in Serum or Plasma 139 meq/L 136-145 MED[facility] ([facility]) Chloride [Moles/volume] in Serum or Plasma 100 meq/L 98-107 MED[facility] ([facility]) Carbon dioxide, total [Moles/volume] in Serum or Plasma 36 meq/L 21 -32 [facility] ([facility] Glomerular filtration rate/1.73 sq M pre dicted among blacks [Volume Rate/Area] in Serum or Plasma by Creatinine-based formula (MDRD) Laboratory test result [facility] ([facility]) <content>CHRONIC KIDNEY DISEASE STAGING PER NKF</content>
<content></content>
<content>STAGE I & II GFR >= 60 NORMAL TO MILDLY DECREASED</content>
<content>STAGE III GFR 30-59 MODERATELY DECREASED</content>
<content>STAGE IV GFR 15-29 SEVERELY DECREASED</content>
<content>STAGE V GFR <15 VERY LITTLE GFR LEFT</content>
<content>ESRD GFR <15 ON NURSING SCHEDULER</content>
<content></content> Glomerular filtration rate/1.73 sq M pre dicted among non-blacks [Volume Rate/Area] in Serum or Plasma by Creatinine-based formula (MDRD) [facility] Calcium [Mass/volume] in Serum or Plasma 9.7 mg/dL 8.5-10.1 [facility] ([facility]) ID Date Data Source [id number] 10/19/2020 11:23:00 AM EST [facility] ([facility]) Name Value Range Interpretation Code Description Data Jaqueline rce(s) Supporting Document(s) Leukocytes [#/volume] in Blood by Automated count 6.0 x10*3/UL 4.1-10 .9 [facility] ([facility]) NOTE: CBC VERIFIED Hemoglobin [Mass/volume] in Blood 11.2 g/dL 12.0-18.0 [facility] ([facility]) Erythrocytes [#/volume] in Blood by Automated count 3.83 x10*6/UL 4.2 0-6.30 [facility] ([facility]) MCH 29.3 pg 26.0-32.0 [facility] ([facility]) MCV 87.1 fL 80.0-97.0 [facility] ([facility]) Hematocrit [Volume Fraction] of Blood by Automated count 33.3 % 3 7.0-51.0 [facility] ([facility]) MCHC 33.6 g/dL 31.0-38.0 [facility] ([facility]) Platelets [#/volume] in Blood by Automated count 273 x10*3/UL 140-440 [facility] ([facility]) Erythrocyte distribution width [Ratio] by Automated count 12.4 % 11.6-13.7 [facility] ([facility]) Lymph % 22.4 % 10.0-58.5 [facility] ([facility]) Mid % 5.7 % 1.7-9.3 [facility] ([facility]) MPV 8.4 FL 7.8-11.0 [facility] ([facility]) Neut % 71.9 % 37.0-92.0 [facility] ([facility]) Mid # 0.4 x10*3/UL 0.1-0.6 [facility] ([facility]) Lymph # 1.3 x10*3/UL 0.6-4.1 [facility] ([facility]) Neut # 4.3 x10*3/UL 2.0-7.8 [facility] ([facility]) ID Date Data Source [id number] 08/15/2020 02:49:00 PM EDT [facility] ([facility]) Name Value Range Interpretation Code Description Data Jaqueline rce(s) Supporting Document(s) Laboratory test finding (navigational concept) 38.0 % 38.0-51.0 [facility] ([facility]) Laboratory test finding (navigational concept) 3.9 meq/L 3.5-5.1 [facility] ([facility]) Laboratory test finding (navigational concept) 137 meq/L 136-145 [facility] ([facility]) Laboratory test finding (navigational concept) 93 mg/dL 70-105 [facility] ([facility]) Laboratory test finding (navigational concept) 28.0 MM/L 23.0-27.0 [facility] ([facility]) Laboratory test finding (navigational concept) 94 meq/L 98-109 [facility] ([facility]) Laboratory test finding (navigational concept) 5.0 mg/dL 4.5-5.3 [facility] ([facility]) Laboratory test finding (navigational concept) 19 mg/dL 8-26 [facility] ([facility]) Laboratory test finding (navigational concept) 0.6 mg/dL 0.6-1.3 [facility] ([facility]) ID Date Data Source [id number] 08/15/2020 02:44:00 PM EDT [facility] ([facility]) Name Value Range Interpretation Code Description Data Jaqueline rce(s) Supporting Document(s) White Blood Count 9.9 10 4.0-10.0 [facility] ([facility]) Hematocrit 39.1 % 36.0-47.0 [facility] ([facility]) Red Blood Count 4.18 10 4.00-5.40 [facility] ([facility]) Hemoglobin 12.3 g/dL 12.0-15.5 [facility] ([facility]) Mean Corpuscular Hemoglobin 29.4 pg 27.0-33.0 [facility] ([facility]) Mean Corpuscular Volume 93.5 fl 80.0-96.0 [facility] ([facility]) Neutrophils % 84.2 % 36.0-66.0 [facility] ([facility]) Mean Corpuscular HGB Conc 31.5 g/dL 32.0-36.5 [facility] ([facility]) Red Cell Distribution Width 12.0 % 11.5-14.5 [facility] ([facility]) Platelet Count, Automated 301 10 150-450 [facility] ([facility]) Lymph % 9.9 % 24.0-44.0 [facility] [place] % 4.7 % 0.0-5.0 [facility] Eos % 0.7 % 0.0-3.0 [facility] Nucleated Red Blood Cell % 0.0 % 0-0 [facility] ([facility]) Immature Granulocyte % 0.3 % 0-3.0 [facility] ([facility]) Baso % 0.2 % 0.0-1.0 [facility] Neutrophils # 8.3 10 1.5-8.5 [facility] ([facility]) Lymph # 1.0 10 1.5-5.0 [facility] Eos # 0.1 10 0.0-0.5 [facility] ([place]) Baso # 0.0 10 0.0-0.2 [facility] [place] # 0.5 10 0.0-0.8 [facility] ([facility]) ID Date Data Source [id number] 08/15/2020 02:41:00 PM EDT [facility] ([facility]) Name Value Range Interpretation Code Description Data Jaqueline rce(s) Supporting Document(s) Appearance, Urine RFX [facility] PH,Urine RFX 6.0 units 5.0-9.0 [facility] Specific [place] Ur Auto RFX 1.015 1.002-1.035 [facility]) Color, Urine RFX Laboratory test result [facility] ([facility]) Ketone, Urine Auto RFX Laboratory test result [facility] ([facility]) Protein, Urine Auto RFX [facility] Glucose, Urine (Ua) Auto RFX Laboratory test [facility]) Nitrite, Urine Auto RFX Laboratory test result [facility] ([facility]) Urobilinogen, Urine Auto RFX 0.2 mg/dL 0.0-2.0 [facility] ([facility]) Bilirubin, Urine Auto RFX Laboratory test result [facility] ([facility]) Blood, Urine Blood RFX Laboratory test result [facility] ([facility]) WBC, Urine Auto RFX 2 /HPF 0-3 [facility] ([facility] Leukocyte Esterase Ur Auto RFX Laboratory test result [facility] ([facility]) RBC, Urine Auto RFX 7 /HPF 0-3 [facility] Bacteria, Urine Auto RFX Laboratory test result [facility] ([facility]) Squam Epithelial Cell Ur Aurfx 0 /HPF 0-6 [facility] ([facility]) Mucus, Urine RFX Laboratory test result [facility] ([facility]) Hyaline Cast, Urine Auto RFX 0 /LPF 0-1 [facility] ([facility]) Calcium Oxalate Crystals RFX Laboratory test result [facility] ([facility]) ID Date Data Source [id number] 07/06/2020 10:33:00 AM EDT [facility] ([facility] Name Value Range Interpretation Code Description Data Jaqueline rce(s) Supporting Document(s) Thyrotropin [Units/volume] in Serum or Plasma by Detec tion limit <= 0.05 mIU/L 0.73 uIU/mL 0.36-3.74 [facility] ([facility] ) ID Date Data Source [id number] 07/06/2020 10:33:00 AM EDT [facility] Name Value Range Interpretation Code Description Data Jaqueline rce(s) Supporting Document(s) Triglyceride [Mass/volume] in Serum or Plasma 42 mg/dL 30-150 [facility] Cholesterol [Mass/volume] in Serum or Plasma 193 mg/dL 131-200 [facility]) Cholesterol in HDL [Mass/volume] in Serum or Plasma 83 mg/dL 35-60 [facility] ([facility]) Cholesterol in LDL [Mass/volume] in Serum or Plasma by calcu lation 102 CALC 50-159 [facility] ([facility]) ID Date Data Source [id number] 07/06/2020 10:33:00 AM EDT [facility]) Name Value Range Interpretation Code Description Data Jaqueline rce(s) Supporting Document(s) Glucose [Mass/volume] in Serum or Plasma 100 mg/dL 74-99 [facility] ([facility]) 100-125 mg/dL PRE-DIABETES/FASTING >126 mg/dL DIABETES/FASTING Creatinine 0.6 mg/dL 0.6-1.3 [facility] ([facility]) Sodium [Moles/volume] in Serum or Plasma 142 meq/L 136-145 [facility] ([facility]) Urea nitrogen [Mass/volume] in Serum or Plasma 19 mg/dL 7-18 [facility] ([facility]) Chloride [Moles/volume] in Serum or Plasma 100 meq/L 98-107 [facility] ([facility]) Carbon dioxide, total [Moles/volume] in Serum or Plasma 33 meq/L 21 -32 [facility] ([facility]) Potassium [Moles/volume] in Serum or Plasma 3.9 meq/L 3.5-5.1 [facility] ([facility]) Calcium [Mass/volume] in Serum or Plasma 9.8 mg/dL 8.5-10.1 [facility] ([facility]) Total Bilirubin 0.5 mg/dL 0.2-1.0 [facility] ([facility] Alkaline phosphatase isoenzyme [Units/volume] in Serum or Pl asma 91 mg/dL 46-116 [facility] ([facility]) Albumin [Mass/volume] in Serum or Plasma 3.9 g/dL 3.4-5.0 [facility] ([facility]) Alanine aminotransferase [Enzymatic activity/volume] in Seru m or Plasma 28 U/L 12-78 [facility] ([facility]) Aspartate aminotransferase [Enzymatic activity/volume] in Serum or Plasma 22 U/L 15-37 [facility] ([facility] ) Proteinase 3 Ab [Units/volume] in Serum 7.5 g/dL 6.4-8.2 [facility] ([facility]) Glomerular filtration rate/1.73 sq M pre dicted among non-blacks [Volume Rate/Area] in Serum or Plasma by Creatinine-based formula (MDRD) Laboratory [facility] Glomerular filtration rate/1.73 sq M pre dicted among blacks [Volume Rate/Area] in Serum or Plasma by Creatinine-based formula (MDRD) Laboratory test result [facility] ([facility]) <content>CHRONIC KIDNEY DISEASE STAGING PER NKF</content>
<content></content>
<content>STAGE I & II GFR >= 60 NORMAL TO MILDLY DECREASED</content>
<content>STAGE III GFR 30-59 MODERATELY DECREASED</content>
<content>STAGE IV GFR 15-29 SEVERELY DECREASED</content>
<content>STAGE V GFR <15 VERY LITTLE GFR LEFT</content>
<content>ESRD GFR <15 ON NURSING SCHEDULER</content>
<content></content> A/G Ratio 1.08 CALC 1.00-1.90 [facility] ([facility]) ID Date Data Source [id number] 07/06/2020 10:33:00 AM EDT [facility]) Name Value Range Interpretation Code Description Data Jaqueline rce(s) Supporting Document(s) Magnesium 1.8 mg/dL 1.8-2.4 [facility] ([facility]) ID Date Data Source [id number] 07/06/2020 10:33:00 AM EDT [facility] Name Value Range Interpretation Code Description Data Jaqueline rce(s) Supporting Document(s) Hemoglobin [Mass/volume] in Blood 12.5 g/dL 12.0-18.0 [facility] ([facility]) Erythrocytes [#/volume] in Blood by Automated count 4.27 x10*6/UL 4.2 0-6.30 [facility] Leukocytes [#/volume] in Blood by Automated count 7.2 x10*3/UL 4.1-10 .9 [facility] ([facility]) Hematocrit [Volume Fraction] of Blood by Automated count 37.0 % 3 7.0-51.0 [facility] ([facility]) MCH 29.3 pg 26.0-32.0 [facility]) MCV 86.7 fL 80.0-97.0 [facility] ([place] [facility]) Erythrocyte distribution width [Ratio] by Automated count 12.3 % 11.6-13.7 [facility] ([facility]) Platelets [#/volume] in Blood by Automated count 311 x10*3/UL 140-440 [facility] ([facility]) MCHC 33.8 g/dL 31.0-38.0 [facility] ([place] [facility]) MPV 9.0 FL 7.8-11.0 [facility] Lymph % 21.4 % 10.0-58.5 [facility] ([place] [facility]) Mid % 6.6 % 1.7-9.3 [facility] ([place] [facility]) Neut % 72.0 % 37.0-92.0 [facility] ([place] [facility]) Lymph # 1.5 x10*3/UL 0.6-4.1 [facility] ([facility]) Mid # 0.5 x10*3/UL 0.1-0.6 [facility] ([facility]) Neut # 5.2 x10*3/UL 2.0-7.8 [facility] ([facility]) Procedure Social History Code Duration Value Status Description Data Source(s ) Smoking 01/15/2021 12:00:00 AM EST Former Smoker completed Former Smoker eCW1 (On License Of [facility]) Smoking 01/09/2021 12:00:00 AM EST Former Smoker completed Former Smoker eCW1 (On [facility] Of [facility]) Smoking 01/04/2021 12:00:00 AM EST Former Smoker completed Former Smoker eCW1 (On [facility] Of [facility]) Smoking 01/04/2021 12:00:00 AM EST Former Smoker completed Former Smoker eCW1 (On [facility] Of [facility]) Smoking 01/03/2021 12:00:00 AM EST Former Smoker completed Former Smoker eCW1 (On [facility] Of [facility]) Smoking 12/27/2020 12:00:00 AM EST Former Smoker completed Former Smoker eCW1 (On [facility] Of [facility]) Smoking 12/19/2020 12:00:00 AM EST Former Smoker completed Former Smoker eCW1 (On [facility] Of [facility]) Smoking 12/19/2020 12:00:00 AM EST Former Smoker completed Former Smoker eCW1 (On [facility] Of [facility]) Smoking 12/06/2020 12:00:00 AM EST Former Smoker completed Former Smoker eCW1 (On [facility] Of [facility]) Smoking 11/17/2020 12:00:00 AM EST Former Smoker completed Former Smoker eCW1 (On [facility] Of [facility]) Smoking 11/17/2020 12:00:00 AM EST Former Smoker completed Former Smoker eCW1 (On [facility] Of [facility]) Smoking 11/17/2020 12:00:00 AM EST Former Smoker completed Former Smoker eCW1 (On [facility] Of [facility]) Smoking 11/17/2020 12:00:00 AM EST Former Smoker completed Former Smoker eCW1 (On [facility] Of [facility]) Smoking 11/17/2020 12:00:00 AM EST Former Smoker completed Former Smoker eCW1 (On [facility] Of [facility]) Smoking 11/17/2020 12:00:00 AM EST Former Smoker completed Former Smoker eCW1 (On [facility] Of [facility]) Smoking 11/17/2020 12:00:00 AM EST Former Smoker completed Former Smoker eCW1 (On [facility] Of [facility]) Smoking 11/17/2020 12:00:00 AM EST Former Smoker completed Former Smoker eCW1 (On [facility] Of [facility]) Smoking 11/17/2020 12:00:00 AM EST Former Smoker completed Former Smoker eCW1 (On [facility] Of [facility]) Smoking 11/14/2020 12:00:00 AM EST Former Smoker completed Former Smoker eCW1 (On [facility] Of [facility]) Vital Signs ID Date Data Source [id number] Name Value Range Interpretation Code Description Data Source(s) Diastolic blood pressure 82 mm[Hg] 82 mm[Hg] eCW1 (On [facility]) Systolic blood pressure 160 mm[Hg] 160 mm[Hg] e CW1 (On [facility] Of [facility]) Respiratory rate 18 /min 18 /min eCW1 ([facility]) Heart rate 100 /min 100 /min eCW1 ([facility]) Body mass index (BMI) [Ratio] 15.11 kg/m2 15.11 kg/m2 eCW1 (On [facility] Of [facility]) Body height 61 [in_i] 61 [in_i] eCW1 ([facility]) Body weight 80 [lb_av] 80 [lb_av] eCW1 ([facility]) Diastolic blood pressure 78 mm[Hg] 78 mm[Hg] eCW1 (On [facility] Of [facility]) Systolic blood pressure 132 mm[Hg] 132 mm[Hg] e CW1 (On [facility] Of [facility]) Body temperature 97.8 [degF] 97.8 [degF] eCW1 ( On License Of [facility]) Respiratory rate 22 /min 22 /min eCW1 ([facility]) Heart rate 105 /min 105 /min eCW1 ([facility]) Body mass index (BMI) [Ratio] 14.55 kg/m2 14.55 kg/m2 W1 (On [facility] Of [facility]) Body height 61 [in_i] 61 [in_i] eCW1 ([facility]) Body weight 77 [lb_av] 77 [lb_av] eCW1 ([facility]) Diastolic blood pressure 55 mm[Hg] 55 mm[Hg] eCW1 (On [facility] Of [facility]) Systolic blood pressure 148 mm[Hg] 148 mm[Hg] e CW1 (On [facility] Of [facility]) Body temperature 98 [degF] 98 [degF] eCW1 ([facility]) Respiratory rate 24 /min 24 /min eCW1 ([facility]) Heart rate 110 /min 110 /min eCW1 ([facility]) Body mass index (BMI) [Ratio] 14.55 kg/m2 14.55 kg/m2 eCW1 (On [facility] Of [facility]) Body height 61 [in_i] 61 [in_i] eCW1 ([facility]) Body weight 77 [lb_av] 77 [lb_av] eCW1 ([facility]) Diastolic blood pressure 79 mm[Hg] 79 mm[Hg] eCW1 (On [facility] Of [facility]) Systolic blood pressure 128 mm[Hg] 128 mm[Hg] e CW1 (On [facility] Of [facility]) Respiratory rate 22 /min 22 /min eCW1 ([facility]) Heart rate 116 /min 116 /min eCW1 ([facility]) Body mass index (BMI) [Ratio] 14.93 kg/m2 14.93 kg/m2 W1 (On [facility] Of [facility]) Body height 61 [in_i] 61 [in_i] eCW1 ([facility]) Body weight 79 [lb_av] 79 [lb_av] eCW1 ([facility]) Diastolic blood pressure 81 mm[Hg] 81 mm[Hg] eCW1 (On [facility] Of [facility]) Systolic blood pressure 131 mm[Hg] 131 mm[Hg] e CW1 (On [facility] Of [facility]) Body temperature 97.8 [degF] 97.8 [degF] eCW1 ( On [facility] Of [facility]) Respiratory rate 24 /min 24 /min eCW1 ([facility]) Heart rate 120 /min 120 /min eCW1 ([facility]) Body mass index (BMI) [Ratio] 14.93 kg/m2 14.93 kg/m2 eCW1 (On [facility] Of [facility]) Body height 61 [in_i] 61 [in_i] eCW1 ([facility]) Body weight 79 [lb_av] 79 [lb_av] eCW1 ([facility]) Diastolic blood pressure 70 mm[Hg] 70 mm[Hg] eCW1 (On [facility] Of [facility]) Systolic blood pressure 117 mm[Hg] 117 mm[Hg] e CW1 (On [facility] Of [facility]) Body temperature 98.7 [degF] 98.7 [degF] eCW1 ( On License Of [facility]) Respiratory rate 24 /min 24 /min eCW1 ([facility]) Heart rate 69 /min 69 /min eCW1 ([facility]) Body mass index (BMI) [Ratio] 14.93 kg/m2 14.93 kg/m2 eCW1 (On [facility] Of [facility]) Body height 61 [in_i] 61 [in_i] eCW1 ([facility]) Body weight 79 [lb_av] 79 [lb_av] eCW1 ([facility]) Diastolic blood pressure 68 mm[Hg] 68 mm[Hg] eCW1 (On [facility] Of [facility]) Systolic blood pressure 110 mm[Hg] 110 mm[Hg] e CW1 (On [facility] Of [facility]) Body mass index (BMI) [Ratio] 20.78 kg/m2 20.78 kg/m2 eCW1 (On [facility] Of [facility]) Body height 61 [in_i] 61 [in_i] eCW1 ([facility]) Body weight 110 [lb_av] 110 [lb_av] eCW1 ([facility]) Diastolic blood pressure 68 mm[Hg] 68 mm[Hg] eCW1 (On License Of [facility]) Systolic blood pressure 110 mm[Hg] 110 mm[Hg] e CW1 (On License Of [facility]) Body temperature 98.9 [degF] 98.9 [degF] eCW1 ( On License Of [facility]) Respiratory rate 22 /min 22 /min eCW1 ([facility]) Heart rate 105 /min 105 /min eCW1 ([facility]) Body mass index (BMI) [Ratio] 14.55 kg/m2 14.55 kg/m2 eCW1 (On [facility] Of [facility]) Body height 61 [in_i] 61 [in_i] eCW1 ([facility]) Body weight 77 [lb_av] 77 [lb_av] eCW1 ([facility]) Diastolic blood pressure 68 mm[Hg] 68 mm[Hg] eCW1 (On [facility] Of [facility]) Systolic blood pressure 118 mm[Hg] 118 mm[Hg] e CW1 (On [facility] Of [facility]) Body mass index (BMI) [Ratio] 14.55 kg/m2 14.55 kg/m2 eCW1 (On [facility] Of [facility]) Body height 61 [in_i] 61 [in_i] eCW1 ([facility]) Body weight 77 [lb_av] 77 [lb_av] eCW1 ([facility]) Body mass index (BMI) [Ratio] 15.1 kg/m2 15.1 k g/m2 [facility] ([facility]) Oxygen saturation in Arterial blood by Pulse oximetry 94 % 94 % [facility] ([facility]) With O2 @ 2L Body weight 78.50 [lb_av] 78.50 [lb_av] [facility] ([facility]) Body height 60.50 [in_i] 60.50 [in_i] [facility] ([facility]) 5'0.50" Heart rate 105 /min 105 /min [facility] ([facility]) Diastolic blood pressure 50 mm[Hg] 50 mm[Hg] [facility] ([facility]) Systolic blood pressure 110 mm[Hg] 110 mm[Hg] M EDENT ([facility]) Diastolic blood pressure 74 mm[Hg] 74 mm[Hg] eCW1 (On [facility] Of [facility]) Systolic blood pressure 108 mm[Hg] 108 mm[Hg] e CW1 (On License Of [facility]) Body temperature 97.6 [degF] 97.6 [degF] eCW1 ( On License Of [facility]) Respiratory rate 22 /min 22 /min eCW1 ([facility]) Heart rate 86 /min 86 /min eCW1 ([facility]) Body mass index (BMI) [Ratio] 14.93 kg/m2 14.93 kg/m2 [facility] (On License Of [facility]) Body height 61 [in_i] 61 [in_i] eCW1 ([facility]) Body weight 79 [lb_av] 79 [lb_av] eCW1 ([facility]) Diastolic blood pressure 82 mm[Hg] 82 mm[Hg] eCW1 (On [facility] Of [facility]) Systolic blood pressure 125 mm[Hg] 125 mm[Hg] e CW1 (On [facility] Of [facility]) Body temperature 97.2 [degF] 97.2 [degF] eCW1 ( On [facility] Of [facility]) Respiratory rate 24 /min 24 /min eCW1 ([facility]) Heart rate 114 /min 114 /min eCW1 ([facility]) Body mass index (BMI) [Ratio] 14.74 kg/m2 14.74 kg/m2 W1 (On License Of [facility]) Body height 61 [in_i] 61 [in_i] eCW1 ([facility]) Body weight 78 [lb_av] 78 [lb_av] eCW1 ([facility]) Body mass index (BMI) [Ratio] 15.8 kg/m2 15.8 k g/m2 [facility] ([facility]) Oxygen saturation in Arterial blood by Pulse oximetry --post exerci se 90 % 90 % [facility] ([facility]) With 02 Body weight 82.50 [lb_av] 82.50 [lb_av] [facility] ([facility]) Body height 60.50 [in_i] 60.50 [in_i] [facility] ([facility]) 5'0.50" Heart rate 100 /min 100 /min [facility] ([facility]) Diastolic blood pressure 80 mm[Hg] 80 mm[Hg] [facility] ([facility]) Systolic blood pressure 130 mm[Hg] 130 mm[Hg] M EDENT ([facility]) Diastolic blood pressure 86 mm[Hg] 86 mm[Hg] [facility] ([facility]) RT Arm Systolic blood pressure 146 mm[Hg] 146 mm[Hg] M EDENT ([facility]) RT Arm Patient Treatment Plan of Care Planned Activity Planned Date Details Description Data Source (s) Cephalexin 500 MG Oral Capsule 01/09/2021 12:00:00 AM EST eCW1 (On License Of [facility]) Ciprofloxacin 500 MG Oral Tablet 12/06/2020 12:00:00 AM EST eCW1 (On License Of [facility]) Ciprofloxacin 500 MG Oral Tablet 11/14/2020 12:00:00 AM EST eCW1 (On [facility] Of [facility]) Oxybutynin chloride 5 MG Oral Tablet 09/08/2020 12:00:00 AM EDT eCW1 (On [facility] Of [facility]) Oxybutynin chloride 5 MG Oral Tablet 09/08/2020 12:00:00 AM EDT eCW1 (On [facility] Of [facility]) Oxybutynin chloride 5 MG Oral Tablet 09/08/2020 12:00:00 AM EDT eCW1 (On [facility] Of [facility])
== END 2021-01-21 12:32 | disposition home or self-care (01) ==
LOC: M ED 11:23
DX: T83.098A Other mechanical complication of other urinary catheter, initial encounter (principal); Y92.9 Unspecified place or not applicable; Y93.9 Activity, unspecified; R33.9 Retention of urine, unspecified; J44.9 Chronic obstructive pulmonary disease, unspecified; Z87.891 Personal history of nicotine dependence; Z79.899 Other long term (current) drug therapy

== ENCOUNTER 2021-04-30 12:47 | Emergency (ER) | payer MEDICARE ==
[~2021-04-30] VITALS: Ht 160 cm; Wt 39.8 kg
[2021-04-30] MEDS ORDERED: SODIUM BICARBONATE 8.4% INJ 50 ML SYRINGE ONE (12:48)
[2021-04-30] MEDS ORDERED: EPINEPHrine 1MG/10ML SYRINGE 1.5IN IV STA (12:48)
[2021-04-30] MEDS ORDERED: SODIUM BICARBONATE 8.4% INJ 50 ML SYRINGE IV STA (12:51)
[2021-04-30 14:15] LABS: RSV AMPLIFICATION NEGATIVE (NEGATIVE)
== END 2021-04-30 14:47 | disposition expired ==
LOC: M ED 12:47 → EDBD 12:47 → M ED 14:47
DX: I46.9 Cardiac arrest, cause unspecified (principal); I10 Essential (primary) hypertension; E78.5 Hyperlipidemia, unspecified; J44.9 Chronic obstructive pulmonary disease, unspecified; Z87.891 Personal history of nicotine dependence; Z79.899 Other long term (current) drug therapy

== ENCOUNTER → 2021-05-01 | Outpatient (REF) | LOC: M LAB 10:52 | DX: Z02.89 Encounter for other administrative examinations ==